=== PATIENT | male | born 1980 | race Caucasian/White ===

== ENCOUNTER 2020-02-16 11:20 | Outpatient (REF) | payer OTHER, SELFPAY ==
[2020-02-16 11:45] LABS: COVID-19 Test Negative (Negative)
== END 2020-02-16 11:21 | disposition home or self-care (01) ==
LOC: HO.LAB 11:20
PROVIDERS: Visit Provider Internal Medicine
DX: Z20.828 Contact with and (suspected) exposure to other viral communicable diseases (principal)
CPT/HCPCS: 87635

== ENCOUNTER 2020-05-18 11:27 | Emergency (ER) | payer OTHER, SELFPAY ==
[2020-05-18 11:32] VITALS: BP 133/94; BP 140/80; PULSE 110; PULSE 91; RESP 14; TEMP 37.2; O2SAT 98; O2SAT 99; BMI 29.9
--- NOTE | 2020-05-18 11:53 | XR_ITS ---
EXAMINATION: XR CHEST CLINICAL INFORMATION: Cough and fever COMPARISON: November 04, 2016 TECHNIQUE: 2 views of the chest were obtained. FINDINGS: No significant abnormality is noted involving the heart, lungs, mediastinum, bony thorax or soft tissues. XR/XR chest 2V IMPRESSION: No acute disease.
--- NOTE | 2020-05-18 11:56 | ECG_ITS ---
Test Reason : ETOH Blood Pressure : / mmHG Vent. Rate : 081 BPM Atrial Rate : 081 BPM P-R Int : 136 ms QRS Dur : 092 ms QT Int : 396 ms P-R-T Axes : 080 056 059 degrees QTc Int : 460 ms Normal sinus rhythm with sinus arrhythmia Normal ECG No previous ECGs available Referred By: Devi Del Valle Electronically Signed By:ADOLFO SERRATO MD
--- NOTE | 2020-05-18 11:58 | ED.ALCOHOL ---
HPI - Alcohol General Chief Complaint: ETOH/Substance Use Stated Complaint: withdrawal Time Seen by Provider: 05/18/20 11:41 Source: EMS Mode of arrival: EMS History of Present Illness HPI narrative: 40-year-old male with a past medical history of alcohol abuse here with feeling tremulous and nauseous. He tells me that he normally drinks over the weekend 2-3 days and binges. He tells me he will drink approximately 1 bottle of hard liquor per day on the weekend. Does not drink during the week except occasional sips. No additional substance use. He does normally feel shaky and tremulous if he does not drink. He tells me after this past weekend he did not eat much food or drink much water and feels very dehydrated. He also has felt some chills but no fever. No vomiting or diarrhea or abdominal pain or cough or shortness of breath or chest pain. The patient tells me he is not interested in going to detox today. No SI/HI. MD complaint: alcohol dependence Last drink: Hours (ago) Chronic alcohol use: Yes Previous visits for alcohol intoxication: No Recent trauma: No Associated symptoms: nausea Treatments prior to arrival: none Related Data Allergies Allergy/AdvReac Type Severity Reaction Status Date / Time No Known Allergies Allergy Unverified 01/20/20 17:21 Seasonal Allergy Unknown Uncoded 09/18/17 00:00 Review of Systems Review of Systems: Yes all other systems are reviewed and are negative Constitutional: Constitutional: Reports no additional constitutional complaints, Denies body ache(s), Reports chills, Denies fever(s), Denies headache(s) and Denies weakness Eyes: Eyes: Reports no additional eye complaints and Denies change in vision ENT: Reports system reviewed and no additional complaints, except as documented, Denies dizziness, Denies headache(s), Denies nasal congestion, Denies nasal discharge and Denies neck pain Cardiovascular: Cardiovascular: Reports no additional cardiovascular complaints, Denies chest pain, Denies leg edema and Denies dyspnea Respiratory: Respiratory: Reports no additional respiratory complaints, Denies cough and Denies dyspnea Gastrointestinal: Gastrointestinal: Reports no additional gastrointestinal complaints, Denies abdominal pain, Denies diarrhea, Reports nausea and Denies vomiting Genitourinary: Genitourinary: Denies urinary incontinence Musculoskeletal: Musculoskeletal: Reports no additional musculoskeletal complaints, Denies back pain, Denies arthralgias, Denies joint swelling, Denies neck pain, Denies numbness and Denies tingling Integumentary/Breasts: Skin/Breast: Reports system reviewed and no additional complaints, except as docu and Denies rash Neurologic: Reports system reviewed and no additional complaints, except as documented, Denies Abnormal speech present, Denies dizziness, Denies headache(s), Denies numbness, Denies tingling, Reports tremor(s) and Denies weakness [facility] Past Medical History Attestation statement: The following information was validated with the patient. Source: old records reviewed and nursing notes reviewed Medical History Seasonal asthma Social History Social History Alcohol intake: current Alcohol intake frequency: 3 or more drinks per day Alcohol type: beer and hard liquor Smoking Status: Current every day smoker Substance Use Type: Marijuana Physical Exam Vital Signs: Vital Signs: Last Vital Signs Temp 99.0 F 05/18/20 15:41 Pulse 96 05/18/20 15:41 Resp 13 05/18/20 15:41 BP 141/81 H 05/18/20 15:41 Pulse Ox 96 05/18/20 15:41 Body Mass Index 29.9 Const: General: cooperative, healthy appearing, comfortable and no acute distress Orientation/consciousness: patient oriented x3 Limitations: no limitations HENMT: Other: Tacky mucous membranes Head: Yes normal to inspection Ears: hearing grossly normal bilaterally General nose exam: Normal external nose present Face and sinus: Yes normal facial exam Mouth: Normal oral and palatal mucosa present Throat: Yes posterior oropharynx normal Eyes: General: appearance normal, both eyes and all related structures Pupils: Equal, round and reactive pupils present Neck: Neck: Yes normal visual inspection Chest: Chest palpation & inspection: normal inspection of the chest Resp: Effort & Inspection: normal respiratory effort Auscultation: clear to auscultation bilaterally Cardio: Rate: regular rate Rhythm: regular rhythm Peripheral pulses: Peripheral pulses 2+ throughout GI: Inspection: Yes normal to inspection Palpation (GI): Soft to palpation and nontender Auscultation: normal bowel sounds Back/Spine/Pelvis: Thoracic/Lumbar Spine: thoracic and lumbar spine normal to inspection Skin: Other: warm to touch General skin exam: no rashes or lesions noted Neuro: Other: tremulous General: patient oriented x3, no focal motor deficits and normal sensation to monofilament Cranial nerves: Yes Equal, round and reactive pupils present Cognition (Neuro): normal cognition Speech: No Abnormal speech present Gait exam (Neuro): Normal gait present Motor exam (neuro): 5/5 motor strength present throughout Extrem: General: Yes normal to inspection Course Course Course Narrative: 40-year-old male here with feeling tremulous, weak, nauseous. Tells me has a history of binge drinking and normally has withdrawal symptoms from this. Decreased p.o. intake over this weekend. Not interested in detox. No SI or HI. Denies any injury or trauma. On arrival the patient is noted to be warm to touch and has some chills. He has a low-grade temperature of 99.9 degrees on arrival. Will need labs including blood cultures and lactic acid, EKG, chest x-ray, COVID testing. Will give normal saline bolus, antiemetics and Ativan. coach mechanic at the bedside. 1330-lactic acid elevated. No leukocytosis or shift. No tachycardia. Patient has low-grade fever. This is likely secondary to severe dehydration from alcohol abuse. Not from sepsis. Patient does appear dehydrated so fluids were ordered. 1600-repeat labs improved. Patient is feeling less tremulous. Denies nausea. Tolerating p.o.. He has an appointment at [facility] 11:00 tomorrow. Reviewed worrisome signs and symptoms and when to return to the emergency department. Comfortable discharge home. [facility] - Alcohol Medical Records Attestation: I reviewed the patient's medical records. Lab Data Attestation: I reviewed the patient's lab results. Result diagrams: 05/18/20 12:33 05/18/20 12:33 Labs: Lab Results 05/18/20 05/18/20 05/18/20 Range/Units 12:33 12:33 12:33 WBC 7.5 (4.8-10.8) X10*3/uL RBC 5.15 (4.60-5.80) X10*6/uL Hgb 16.5 (14.0-18.0) g/dl Hct 46.2 (42-52) % MCV 89.7 (80-98) fL MCH 32.0 (27.0-33.0) pg MCHC 35.7 (31.0-36.0) g/dl RDW 13.0 (11.0-16.0) % Plt Count 234 (160-400) X10*3/uL MPV 10.0 (9.4-12.4) fL Immature Gran % (Auto) 0.1 (0.0-0.4) % Neut % (Auto) 72.8 (45-73) % Lymph % (Auto) 21.2 (20-40) % [place] % (Auto) 5.5 (2-11) % Eos % (Auto) 0.0 (0-4) % Baso % (Auto) 0.4 (0-2) % Lymph # (Auto) 1.6 (1.2-4.9) X10*3/uL [place] # (Auto) 0.4 (0.1-1.2) X10*3/uL Eos # (Auto) 0.0 (0.0-0.4) X10*3/uL Baso # (Auto) 0.0 (0.0-0.2) X10*3/uL Abs Immat Gran (auto) 0.01 (0.00-0.03) X10*3/uL Absolute Neuts (auto) 5.5 (2.0-8.3) X10*3/uL Absolute Nucleated RBC 0.000 (0.0-0.012) X10*3/uL Nucleated RBC % (auto) 0.0 (0.0-0.2) /100WBC Sodium 141 (135-145) mmol/L Potassium 3.9 (3.3-5.1) mmol/l Chloride 103 (96-108) mmol/L Carbon Dioxide 20 L (22-29) mmol/L Anion Gap 22 H (12-20) BUN 9 (9-16) mg/dL Creatinine 0.86 (0.5-1.4) mg/dL Estim Creat Clear Calc 113.4 Estimated GFR > 60 Random Glucose 102 (60-115) mg/dL Lactic Acid 4.9 H* (0.5-2.0) mmol/L Lactic Acid Fup @ 2Hr (0.5-2.0) mmol/L Calcium 9.3 (8.4-10.2) mg/dL Magnesium 1.9 (1.6-2.6) mg/dL Total Bilirubin 0.5 (0.0-1.0) mg/dL Direct Bilirubin 0.2 (0.0-0.5) mg/dL AST 29 (5-37) U/L ALT 30 (0-40) U/L Alkaline Phosphatase 88 (39-117) U/L Total Protein 7.7 (6.5-8.0) g/dL Albumin 4.6 (3.5-5.0) g/dL Urine Color Urine Appearance Urine pH (5.0-8.0) Ur Specific [place] (1.005-1.025) Urine Protein (NEG-TRACE) MG/DL Urine Glucose (UA) (NEG) MG/DL Urine Ketones (NEG) MG/DL Urine Blood (NEG) Urine Nitrite (NEG) Ur Leukocyte Esterase (NEG) Urine Opiates Screen (Not Detect) Ur Barbiturates Screen (Not Detect) Ur Phencyclidine Scrn (Not Detect) Ur Amphetamines Screen (Not Detect) U Benzodiazepines Scrn (Not Detect) Urine Cocaine Screen (Not Detect) U Marijuana (THC) Screen (Not Detect) Ethyl Alcohol mg/dL COVID-19 ([facility]INDSEY) (Negative) COVID-19 Clin Com 05/18/20 05/18/20 05/18/20 Range/Units 12:34 12:52 15:23 WBC (4.8-10.8) X10*3/uL RBC (4.60-5.80) X10*6/uL Hgb (14.0-18.0) g/dl Hct (42-52) % MCV (80-98) fL MCH (27.0-33.0) pg MCHC (31.0-36.0) g/dl RDW (11.0-16.0) % Plt Count (160-400) X10*3/uL MPV (9.4-12.4) fL Immature Gran % (Auto) (0.0-0.4) % Neut % (Auto) (45-73) % Lymph % (Auto) (20-40) % [place] % (Auto) (2-11) % Eos % (Auto) (0-4) % Baso % (Auto) (0-2) % Lymph # (Auto) (1.2-4.9) X10*3/uL [place] # (Auto) (0.1-1.2) X10*3/uL Eos # (Auto) (0.0-0.4) X10*3/uL Baso # (Auto) (0.0-0.2) X10*3/uL Abs Immat Gran (auto) (0.00-0.03) X10*3/uL Absolute Neuts (auto) (2.0-8.3) X10*3/uL Absolute Nucleated RBC (0.0-0.012) X10*3/uL Nucleated RBC % (auto) (0.0-0.2) /100WBC Sodium (135-145) mmol/L Potassium (3.3-5.1) mmol/l Chloride (96-108) mmol/L Carbon Dioxide (22-29) mmol/L Anion Gap (12-20) BUN (9-16) mg/dL Creatinine (0.5-1.4) mg/dL Estim Creat Clear Calc Estimated GFR Random Glucose (60-115) mg/dL Lactic Acid (0.5-2.0) mmol/L Lactic Acid Fup @ 2Hr 1.1 (0.5-2.0) mmol/L Calcium (8.4-10.2) mg/dL Magnesium (1.6-2.6) mg/dL Total Bilirubin (0.0-1.0) mg/dL Direct Bilirubin (0.0-0.5) mg/dL AST (5-37) U/L ALT (0-40) U/L Alkaline Phosphatase (39-117) U/L Total Protein (6.5-8.0) g/dL Albumin (3.5-5.0) g/dL Urine Color Urine Appearance Urine pH (5.0-8.0) Ur Specific [place] (1.005-1.025) Urine Protein (NEG-TRACE) MG/DL Urine Glucose (UA) (NEG) MG/DL Urine Ketones (NEG) MG/DL Urine Blood (NEG) Urine Nitrite (NEG) Ur Leukocyte Esterase (NEG) Urine Opiates Screen (Not Detect) Ur Barbiturates Screen (Not Detect) Ur Phencyclidine Scrn (Not Detect) Ur Amphetamines Screen (Not Detect) U Benzodiazepines Scrn (Not Detect) Urine Cocaine Screen (Not Detect) U Marijuana (THC) Screen (Not Detect) Ethyl Alcohol 42 mg/dL COVID-19 ([place]INDSEY) Negative (Negative) COVID-19 Clin Com See Note 05/18/20 05/18/20 Range/Units 15:42 15:42 WBC (4.8-10.8) X10*3/uL RBC (4.60-5.80) X10*6/uL Hgb (14.0-18.0) g/dl Hct (42-52) % MCV (80-98) fL MCH (27.0-33.0) pg MCHC (31.0-36.0) g/dl RDW (11.0-16.0) % Plt Count (160-400) X10*3/uL MPV (9.4-12.4) fL Immature Gran % (Auto) (0.0-0.4) % Neut % (Auto) (45-73) % Lymph % (Auto) (20-40) % [place] % (Auto) (2-11) % Eos % (Auto) (0-4) % Baso % (Auto) (0-2) % Lymph # (Auto) (1.2-4.9) X10*3/uL [place] # (Auto) (0.1-1.2) X10*3/uL Eos # (Auto) (0.0-0.4) X10*3/uL Baso # (Auto) (0.0-0.2) X10*3/uL Abs Immat Gran (auto) (0.00-0.03) X10*3/uL Absolute Neuts (auto) (2.0-8.3) X10*3/uL Absolute Nucleated RBC (0.0-0.012) X10*3/uL Nucleated RBC % (auto) (0.0-0.2) /100WBC Sodium (135-145) mmol/L Potassium (3.3-5.1) mmol/l Chloride (96-108) mmol/L Carbon Dioxide (22-29) mmol/L Anion Gap (12-20) BUN (9-16) mg/dL Creatinine (0.5-1.4) mg/dL Estim Creat Clear Calc Estimated GFR Random Glucose (60-115) mg/dL Lactic Acid (0.5-2.0) mmol/L Lactic Acid Fup @ 2Hr (0.5-2.0) mmol/L Calcium (8.4-10.2) mg/dL Magnesium (1.6-2.6) mg/dL Total Bilirubin (0.0-1.0) mg/dL Direct Bilirubin (0.0-0.5) mg/dL AST (5-37) U/L ALT (0-40) U/L Alkaline Phosphatase (39-117) U/L Total Protein (6.5-8.0) g/dL Albumin (3.5-5.0) g/dL Urine Color YELLOW Urine Appearance CLEAR Urine pH 7.5 (5.0-8.0) Ur Specific [place] 1.020 (1.005-1.025) Urine Protein NEG (NEG-TRACE) MG/DL Urine Glucose (UA) NEG (NEG) MG/DL Urine Ketones 40 (NEG) MG/DL Urine Blood NEG (NEG) Urine Nitrite NEG (NEG) Ur Leukocyte Esterase NEG (NEG) Urine Opiates Screen Not Detected (Not Detect) Ur Barbiturates Screen Not Detected (Not Detect) Ur Phencyclidine Scrn Not Detected (Not Detect) Ur Amphetamines Screen Not Detected (Not Detect) U Benzodiazepines Scrn Not Detected (Not Detect) Urine Cocaine Screen Not Detected (Not Detect) U Marijuana (THC) Screen POSITIVE H (Not Detect) Ethyl Alcohol mg/dL COVID-19 ([facility]INDSEY) (Negative) COVID-19 Clin Com Imaging Data Chest x-ray: Attestation: I personally reviewed and interpreted this imaging study as follows: Radiologist's impression: [address] [address] XRay Report Signed Patient: Denis Baker#: [id number] : 1980Acct:[id number] Age/Sex: 40 / MADM Date: 05/18/20 Loc: HO.ED Attending Dr: Ordering Physician: MCKAY HENNING NP Date of Service: 05/18/20 Procedure(s): XR chest 2V Accession Number(s): [id number] cc: MCKAY HENNING NP~ EXAMINATION: XR CHEST CLINICAL INFORMATION: Cough and fever COMPARISON: November 04, 2016 TECHNIQUE: 2 views of the chest were obtained. FINDINGS: No significant abnormality is noted involving the heart, lungs, mediastinum, bony thorax or soft tissues. XR/XR chest 2V IMPRESSION: No acute disease. ECG Data Attestation: I personally reviewed and interpreted this ECG as follows: ECG interpretation date: 05/18/20 ECG interpretation time: 13:05 Interpretation: NSR rate 81, normal SD, normal qrs, normal qt Discharge Plan Discharge Clinical Impression: Alcohol withdrawal syndrome Qualifiers: Complication of substance-induced condition: uncomplicated Qualified Code(s): F10.230 - Alcohol dependence with withdrawal, uncomplicated Patient Disposition: Home, Self-Care Instructions: Alcohol Withdrawal (ED) Additional Instructions: You have an appointment at the care center tomorrow at 11am. Return here for any worsening symptoms as discussed Referrals: Physician,Unknown [Primary Care Provider] - 2 days Interventions: ED Discharge Assessment Last Done: 05/18/20 16:59 Discharge Date/Time: 05/18/20 17:01
[2020-05-18] MEDS: ondansetron HCL 4 MG/2 ML VIAL IVPUSH (12:25)
[2020-05-18] MEDS: LORazepam 2 MG/ML VIAL 1 MG IVPUSH (12:25)
[2020-05-18] MEDS: 0.9 % Sodium Chloride 1,000 ML 999 ML IV (12:25)
[2020-05-18 12:40] LABS: MANUAL DIFF FLAG NO
[2020-05-18 12:43] LABS: Basophils Percent Auto 0.4 % (0-2); Hematocrit 46.2 % (42-52); Hemoglobin 16.5 g/dl (14.0-18.0); Imm Gran Abs Auto 0.01 X10*3/uL (0.00-0.03); Imm Gran Pct Auto 0.1 % (0.0-0.4); Lymphocytes Absolute Auto 1.6 X10*3/uL (1.2-4.9); Lymphocytes Percent Auto 21.2 % (20-40); Mean Corpuscular HGB Conc 35.7 g/dl (31.0-36.0); Mean Corpuscular Volume 89.7 fL (80-98); Monocytes Absolute Auto 0.4 X10*3/uL (0.1-1.2); Monocytes Percent Auto 5.5 % (2-11); Neutrophils Absolute Auto 5.5 X10*3/uL (2.0-8.3); Neutrophils Percent Auto 72.8 % (45-73); Platelet Count 234 X10*3/uL (160-400); Red Blood Count 5.15 X10*6/uL (4.60-5.80); White Blood Count 7.5 X10*3/uL (4.8-10.8)
[2020-05-18 13:02] VITALS: BP 132/76; PULSE 79; RESP 16; O2SAT 98
[2020-05-18 13:25] LABS: Ethanol 42 mg/dL
[2020-05-18 13:28] LABS: COVID-19 Test Negative (Negative); IDNOW Serial# 9DD0AD1C
[2020-05-18 13:29] LABS: Alanine Aminotransferase 30 U/L (0-40); Albumin Level 4.6 g/dL (3.5-5.0); Alkaline Phosphatase 88 U/L (39-117); Anion Gap 22 (12-20); Aspartate Amino Transferase 29 U/L (5-37); Bilirubin Direct 0.2 mg/dL (0.0-0.5); Bilirubin Total 0.5 mg/dL (0.0-1.0); Blood Urea Nitrogen 9 mg/dL (9-16); Calcium 9.3 mg/dL (8.4-10.2); Carbon Dioxide 20 mmol/L (22-29); Chloride 103 mmol/L (96-108); Creatinine Clr Calc Pharmacy 113.4; Estimated Glomerular Filt Rate > 60; Glucose Random 102 mg/dL (60-115); Lactic Acid 4.9 mmol/L (0.5-2.0); Magnesium 1.9 mg/dL (1.6-2.6); Potassium 3.9 mmol/l (3.3-5.1); Sodium 141 mmol/L (135-145); Total Protein 7.7 g/dL (6.5-8.0)
--- NOTE | 2020-05-18 13:34 | MHC.RECOVSUP ---
Recovery Support note: Patient is a 40 year old [place] speaking male who presented to [facility] [place] via EMS due to symptoms of alcohol withdrawal. Patient met with a passenger coach driver while in the emergency room and reported he was not interested in going to [facility] due to family obligations. Patient did express interest in medications for alcohol use disorder. This typewriter ribbon winder met with patient along with the recovery support nurse to discuss his recovery and MAT options. Patient reports he typically drinks from Friday to Friday and that he binge drinks alcohol and liquor. Patient reports it [birth year] his birthday and that he continued to drink through the week until yesterday. Patient reports his longest of period of sobriety was two periods of 90 days while he was incarcerated. Patient reports a desire to maintain sobriety, stating he is tired of drinking and that he is just drinking to drink and that he doesn't even feel it anymore. Discussed IOP with patient and outpatient therapy. Patient reports he cannot handle stress and that he drinks to cope with stress. Discussed coping skills with patient and encouraged he reaches out to supports in place when stressed. Patient has appointment at the [facility] for 05/19/20 at 11:00. Patient will be provided with appointment reminder as well as information on [facility].
[2020-05-18 14:39] LABS: Reflex Lactate? Lactic Acid Added
--- NOTE | 2020-05-18 15:26 | PC.NURSE ---
repeat lactic drawn. pt in nad. resting comfortably in stretcher.
[2020-05-18 15:41] VITALS: BP 141/81; PULSE 96; RESP 13; TEMP 37.2; O2SAT 96
[2020-05-18 15:51] LABS: ~Lactic Acid-LAB USE ONLY 1.1 mmol/L (0.5-2.0)
[2020-05-18 16:28] LABS: Glucose Urine UA NEG (NEG); Leukocyte Esterase Urine NEG (NEG); Nitrite Urine NEG (NEG); PH 7.5 (5.0-8.0); Urine Blood NEG (NEG); Urine Ketones 40 MG/DL (NEG); Urine Protein NEG (NEG-TRACE)
[2020-05-18 16:29] LABS: Appearance Urine CLEAR; Color Urine YELLOW
[2020-05-18 16:47] LABS: Amphetamine Screen Urine Not Detected (Not Detect); Barbiturates, Urine Not Detected (Not Detect); Benzodiazepines Screen Urine Not Detected (Not Detect); Cannabinoid Screen Urine POSITIVE (Not Detect); Cocaine Screen Urine Not Detected (Not Detect); Opiate Screen Urine Not Detected (Not Detect); Phencyclidine Screen Urine Not Detected (Not Detect)
== END 2020-05-18 17:01 | disposition home or self-care (01) ==
PROVIDERS: Nurse Practitioner Family; Emergency Provider Emergency Medicine Emergency Medical Services
DX: F10.239 Alcohol dependence with withdrawal, unspecified (principal); F12.90 Cannabis use, unspecified, uncomplicated; F17.200 Nicotine dependence, unspecified, uncomplicated; R11.0 Nausea; Z71.6 Tobacco abuse counseling; Z20.822 Contact with and (suspected) exposure to COVID-19
CPT/HCPCS: 36415; 71046; 80048; 80076; 80307; 80320; 81003; 83605; 83735; 85025; 87040; 87635; 93005; 96361; 96374; 96375; 99285; J2060; J2405

== ENCOUNTER → 2020-05-19 13:26 | Outpatient (BNVA) | payer OTHER, SELFPAY | PROVIDERS: Visit Provider Internal Medicine | DX: F11.99 Opioid use, unspecified with unspecified opioid-induced disorder (principal) | CPT/HCPCS: 99202; 99211 ==

== ENCOUNTER 2020-09-04 14:07 | Emergency (ER) | payer OTHER, SELFPAY ==
[2020-09-04 14:10] VITALS: BP 136/101; PULSE 104; RESP 18; TEMP 36.6; O2SAT 96; BMI 29.9
[2020-09-04 17:01] LABS: MANUAL DIFF FLAG NO
[2020-09-04 17:03] LABS: Basophils Percent Auto 0.2 % (0-2); Eosinophils Absolute Auto 0.1 X10*3/uL (0.0-0.4); Eosinophils Percent Auto 0.6 % (0-4); Hemoglobin 16.2 g/dl (14.0-18.0); Imm Gran Abs Auto 0.02 X10*3/uL (0.00-0.03); Imm Gran Pct Auto 0.2 % (0.0-0.4); Lymphocytes Absolute Auto 1.9 X10*3/uL (1.2-4.9); Lymphocytes Percent Auto 21.5 % (20-40); Mean Corpuscular HGB Conc 35.2 g/dl (31.0-36.0); Mean Corpuscular Volume 90.7 fL (80-98); Mean Platelet Volume 10.2 fL (9.4-12.4); Monocytes Absolute Auto 0.6 X10*3/uL (0.1-1.2); Monocytes Percent Auto 6.4 % (2-11); NRBC Pct Auto 0.3 /100WBC (0.0-0.2); Neutrophils Absolute Auto 6.2 X10*3/uL (2.0-8.3); Neutrophils Percent Auto 71.1 % (45-73); Platelet Count 185 X10*3/uL (160-400); Red Blood Count 5.07 X10*6/uL (4.60-5.80); Red Cell Distribution Width 13.2 % (11.0-16.0); White Blood Count 8.7 X10*3/uL (4.8-10.8)
[2020-09-04 17:20] LABS: Prothrombin Time 11.5 SEC (10.8-13.0)
[2020-09-04 17:21] LABS: Alanine Aminotransferase 28 U/L (0-40); Albumin Level 4.4 g/dL (3.5-5.0); Alkaline Phosphatase 92 U/L (39-117); Anion Gap 15 (12-20); Aspartate Amino Transferase 27 U/L (5-37); Blood Urea Nitrogen 12 mg/dL (9-16); Calcium 9.2 mg/dL (8.4-10.2); Carbon Dioxide 23 mmol/L (22-29); Chloride 104 mmol/L (96-108); Creatinine Clr Calc Pharmacy 103.8; Estimated Glomerular Filt Rate > 60; Glucose Random 94 mg/dL (60-115); Potassium 3.8 mmol/L (3.3-5.1); Sodium 138 mmol/L (135-145); Total Protein 7.1 g/dL (6.5-8.0)
[2020-09-04 17:23] LABS: Partial Thromboplastin Time 32.7 SEC (24.1-38.0)
[2020-09-04 17:29] VITALS: BP 141/102; PULSE 91; RESP 14; O2SAT 98
[2020-09-04] MEDS: Famotidine 20 MG TABLET PO (17:46)
[2020-09-04] MEDS: predniSONE 20 MG TABLET 60 MG PO (17:46)
--- NOTE | 2020-09-04 17:56 | ED.GENADULT ---
HPI - General Adult General Chief complaint: Skin/Abscess/Foreign Body Stated complaint: RASH [facility] REACTION TO COVID VACCINE Time Seen by Provider: 09/04/20 16:42 Source: patient Mode of arrival: ambulatory Limitations: no limitations History of Present Illness HPI narrative: Patient presents to the ED for itchy rash which began today. Patient states rash on back, chest, and upper extremities. Patient denies any swelling of lips, shortness of breath, sensation of throat closing. Patient states no fever chills. Patient had 1st modernal vaccine injection last week. Patient denies any bleeding from nose, vomiting blood, belly pain, rectal bleeding, headache, chest pain, shortness of breath, leg swelling, or calf pain. Related Data Previous Rx's Medication Instructions Recorded naltrexone 50 mg tablet 50 mg PO DAILY #30 tab 05/19/20 varenicline 0.5 mg (11)-1 mg (42) See Rx Instructions PO PER PKG DIR 05/19/20 tablets in a dose pack #53 ea diphenhydramine HCl [Benadryl] 25 mg PO TID PRN #30 cap 09/04/20 famotidine [Pepcid] 20 mg PO BID #20 tab 09/04/20 prednisone 40 mg PO DAILY #10 tab 09/04/20 Allergies Allergy/AdvReac Type Severity Reaction Status Date / Time No Known Allergies Allergy Unverified 01/20/20 17:21 Seasonal Allergy Unknown Uncoded 09/18/17 00:00 Review of Systems Review of Systems: Yes all other systems are reviewed and are negative Constitutional: Constitutional: Reports as per HPI and Reports no additional constitutional complaints Eyes: Eyes: Reports as per HPI and Reports no additional eye complaints ENT: Reports system reviewed and no additional complaints, except as documented and Reports as per HPI Cardiovascular: Cardiovascular: Reports as per HPI and Reports no additional cardiovascular complaints Respiratory: Respiratory: Reports as per HPI and Reports no additional respiratory complaints Gastrointestinal: Gastrointestinal: Reports as per HPI and Reports no additional gastrointestinal complaints Genitourinary: Genitourinary: Reports no additional male genitourinary complaints and Reports as per HPI Musculoskeletal: Musculoskeletal: Reports no additional musculoskeletal complaints and Reports as per HPI Comments: Itchy rash on chest/back/upper extremities Neurologic: Reports system reviewed and no additional complaints, except as documented and Reports as per HPI Psychiatric: Psychiatric: Reports no additional psychiatric complaints and Reports as per HPI [facility] Past Medical History Medical History (Updated 09/04/20 @ 18:03 by LYDIA Gaytan) Opioid use disorder Seasonal asthma Social History Social History Alcohol intake: current Alcohol intake frequency: 3 or more drinks per day Alcohol type: beer and hard liquor Smoking Status: Current every day smoker Substance Use Type: Marijuana Advance Directives: No Advance Directives Information Provided: Yes Physical Exam Vital Signs: Vital Signs: Last Vital Signs Temp 97.8 F 09/04/20 14:10 Pulse 91 09/04/20 17:29 Resp 14 09/04/20 17:29 BP 141/102 H 09/04/20 17:29 Pulse Ox 98 09/04/20 17:29 Body Mass Index 29.9 Const: General: cooperative, healthy appearing, comfortable, no acute distress, well developed, alert, awake and Physically active Orientation/consciousness: patient oriented x3 HENMT: Other: Negative for lip swelling or tongue swelling Head: Yes normal to inspection, Yes No palpable skull fracture present, Yes normocephalic, Yes atraumatic and Yes abrasion Throat: Yes posterior oropharynx normal, Yes tonsils normal and Yes uvula midline Eyes: General: appearance normal, both eyes and all related structures Neck: Neck: Yes normal visual inspection, Yes full ROM, Yes no lymphadenopathy, Yes no meningeal signs, Yes trachea midline, Yes supple and No tender Chest: Other: Rash Resp: Effort & Inspection: normal respiratory effort and able to speak in complete sentences Cardio: Jugular venous distension: no JVD Heart sounds: S1 normal heart sound present and S2 normal heart sound present GI: Inspection: Yes normal to inspection and No abdominal wall ecchymosis Palpation (GI): Soft to palpation, not firm, nontender, no guarding and not rigid : General: No CVA tenderness and Yes no CVA tenderness Back/Spine/Pelvis: Back: no CVA tenderness, No CVA tenderness and No back tenderness Skin: Other: Rash on chest, back, upper extremities. Uticaria Neuro: General: patient oriented x3, no meningeal signs and CN's II-XI intact bilaterally Cranial nerves: Yes CN's II-XII intact bilaterally Extrem: General: Yes normal to inspection and Yes full ROM Psych: Appearance: grossly normal, well kempt and not disheveled Course Course Course Narrative: Rash look like uticaria like rash make sure not missing petechia ( thrombocytopenia) although very unlikely due to patient stating rash is itching. Will send labs to evaluate for coags. Reevaluation(s) Reevaluation #1: patient's uticaria now more pronounced. Patient 's labs came back normal. Patient discharged with benadryl, prednisone, and pepcid. Patient's benadryl in the ED was cancelled due to patient states he was driving himself home. Medical Decision Making Lab Data Result diagrams: 09/04/20 16:55 09/04/20 16:55 Labs: Lab Results 09/04/20 09/04/20 09/04/20 Range/Units 16:55 16:55 16:55 WBC 8.7 (4.8-10.8) X10*3/uL RBC 5.07 (4.60-5.80) X10*6/uL Hgb 16.2 (14.0-18.0) g/dl Hct 46.0 (42-52) % MCV 90.7 (80-98) fL MCH 32.0 (27.0-33.0) pg MCHC 35.2 (31.0-36.0) g/dl RDW 13.2 (11.0-16.0) % Plt Count 185 (160-400) X10*3/uL MPV 10.2 (9.4-12.4) fL Immature Gran % (Auto) 0.2 (0.0-0.4) % Neut % (Auto) 71.1 (45-73) % Lymph % (Auto) 21.5 (20-40) % [place] % (Auto) 6.4 (2-11) % Eos % (Auto) 0.6 (0-4) % Baso % (Auto) 0.2 (0-2) % Lymph # (Auto) 1.9 (1.2-4.9) X10*3/uL [place] # (Auto) 0.6 (0.1-1.2) X10*3/uL Eos # (Auto) 0.1 (0.0-0.4) X10*3/uL Baso # (Auto) 0.0 (0.0-0.2) X10*3/uL Abs Immat Gran (auto) 0.02 (0.00-0.03) X10*3/uL Absolute Neuts (auto) 6.2 (2.0-8.3) X10*3/uL Absolute Nucleated RBC 0.030 H (0.0-0.012) X10*3/uL Nucleated RBC % (auto) 0.3 H (0.0-0.2) /100WBC PT 11.5 (10.8-13.0) SEC INR 1.0 (0.9-1.1) APTT 32.7 (24.1-38.0) SEC Sodium 138 (135-145) mmol/L Potassium 3.8 (3.3-5.1) mmol/L Chloride 104 (96-108) mmol/L Carbon Dioxide 23 (22-29) mmol/L Anion Gap 15 (12-20) BUN 12 (9-16) mg/dL Creatinine 0.94 (0.5-1.4) mg/dL Estim Creat Clear Calc 103.8 Estimated GFR > 60 Random Glucose 94 (60-115) mg/dL Calcium 9.2 (8.4-10.2) mg/dL Total Bilirubin 1.0 (0.0-1.0) mg/dL AST 27 (5-37) U/L ALT 28 (0-40) U/L Alkaline Phosphatase 92 (39-117) U/L Total Protein 7.1 (6.5-8.0) g/dL Albumin 4.4 (3.5-5.0) g/dL Discharge Plan Discharge Clinical Impression: Allergic reaction Patient Disposition: Home, Self-Care Instructions: General Allergic Reaction (ED) Additional Instructions: Return to the ED immediately for swelling of lips, swelling of tongue, shortness of breath, fever, chills, worsening rash, or any other concerning symptoms. Please follow-up with your PCP. Please informed your PCP of allergic reaction and you got the COVID vaccine last week. Also you were slightly hypertensive in the ER. Please make your PCP aware of this and follow-up with him. Prescriptions: New prednisone 20 mg tablet 40 mg PO DAILY Qty: 10 RF: 0 famotidine [Pepcid] 20 mg tablet 20 mg PO BID Qty: 20 RF: 0 diphenhydramine HCl [Benadryl] 25 mg capsule 25 mg PO TID PRN (Reason: allergic reaction) Qty: 30 RF: 0 No Action naltrexone 50 mg tablet 50 mg PO DAILY Qty: 30 RF: 0 Chantix Starting Month Box 0.5 mg (11)- 1 mg (42) tablets,dose pack See Rx Instructions PO PER PKG DIR Qty: 53 RF: 0 Interventions: ED Discharge Assessment Last Done: 09/04/20 18:17 Discharge Date/Time: 09/04/20 18:21 Print Language: Danish
== END 2020-09-04 18:21 | disposition home or self-care (01) ==
PROVIDERS: Physician Assistant; Emergency Provider Internal Medicine
DX: T78.40XA Allergy, unspecified, initial encounter (principal); R21 Rash and other nonspecific skin eruption; X58.XXXA Exposure to other specified factors, initial encounter; F17.200 Nicotine dependence, unspecified, uncomplicated; F12.90 Cannabis use, unspecified, uncomplicated
CPT/HCPCS: 36415; 80053; 85025; 85610; 85730; 99283; 99284

== ENCOUNTER 2021-01-11 16:46 | Outpatient (REF) | payer MEDICAID, SELFPAY ==
--- NOTE | ~2021-01-11 | XR_ITS ---
EXAMINATION: XR CHEST CLINICAL INFORMATION: Contact with and suspected exposure to COVID 19 COMPARISON: 05/18/2020 TECHNIQUE: 2 views of the chest were obtained. FINDINGS: Lungs are clear. No focal consolidation or mass. Normal pulmonary vascularity. No pleural effusion or pneumothorax. Normal heart size. No acute osseous abnormality. XR/XR chest 2V IMPRESSION: No acute pulmonary disease.
== END 2021-01-11 16:47 | disposition home or self-care (01) ==
LOC: HO.XRAY 16:46
PROVIDERS: PCP Nurse Practitioner Family; Visit Provider Nurse Practitioner Family
DX: Z20.822 Contact with and (suspected) exposure to COVID-19 (principal)
CPT/HCPCS: 71046

== ENCOUNTER 2021-02-08 09:25 | Outpatient (REF) | payer MEDICAID, SELFPAY ==
[2021-02-08 10:36] LABS: MANUAL DIFF FLAG NO
[2021-02-08 12:08] LABS: Basophils Percent Auto 0.6 % (0-2); Eosinophils Absolute Auto 0.1 X10*3/uL (0.0-0.4); Eosinophils Percent Auto 1.4 % (0-4); Hematocrit 44.5 % (42-52); Hemoglobin 14.6 g/dl (14.0-18.0); Imm Gran Abs Auto 0.01 X10*3/uL (0.00-0.03); Imm Gran Pct Auto 0.2 % (0.0-0.4); Lymphocytes Percent Auto 40.4 % (20-40); Mean Corpuscular HGB Conc 32.8 g/dl (31.0-36.0); Mean Corpuscular Hemoglobin 30.6 pg (27.0-33.0); Mean Corpuscular Volume 93.3 fL (80-98); Mean Platelet Volume 11.2 fL (9.4-12.4); Monocytes Absolute Auto 0.5 X10*3/uL (0.1-1.2); Monocytes Percent Auto 10.3 % (2-11); Neutrophils Absolute Auto 2.3 X10*3/uL (2.0-8.3); Neutrophils Percent Auto 47.1 % (45-73); Platelet Count 189 X10*3/uL (160-400); Red Blood Count 4.77 X10*6/uL (4.60-5.80); Red Cell Distribution Width 13.3 % (11.0-16.0)
== END 2021-02-08 09:26 | disposition home or self-care (01) ==
LOC: HO.LAB 09:25
PROVIDERS: PCP Nurse Practitioner Family; Visit Provider Internal Medicine Pulmonary Disease
DX: J45.909 Unspecified asthma, uncomplicated (principal); F17.210 Nicotine dependence, cigarettes, uncomplicated; F12.90 Cannabis use, unspecified, uncomplicated; Z01.82 Encounter for allergy testing; Z91.09 Other allergy status, other than to drugs and biological substances
CPT/HCPCS: 36415; 82785; 85025; 86003; 99202

== ENCOUNTER 2021-02-25 11:44 | Emergency (ER) | payer MEDICAID, SELFPAY ==
[2021-02-25 12:00] VITALS: BP 136/101; PULSE 96; RESP 16; TEMP 36.4; O2SAT 97; BMI 29.1
[2021-02-25 12:30] LABS: OBS Int Ctl Valid YES; OBS1 NEGATIVE (NEGATIVE)
--- NOTE | 2021-02-25 12:38 | ED.GENADULT ---
HPI - General Adult General Chief complaint: General Medical Stated complaint: personal Time Seen by Provider: 02/25/21 12:16 Source: patient Mode of arrival: ambulatory Limitations: no limitations History of Present Illness HPI narrative: Patient presents to the ED for one blood in toilet and on tissue after painful defecation with rectal pain that occurred this morning. patient states this has happened before in the past. patient denies any abdominal pain, nausea, vomitting, vomitting blood, dizziness, weakness, or any recent trauma. Patient denies any black stool. Patient states pmh of hemmhoriods. Related Data Previous Rx's Medication Instructions Recorded naltrexone 50 mg tablet 50 mg PO DAILY #30 tab 05/19/20 varenicline 0.5 mg (11)-1 mg (42) See Rx Instructions PO PER PKG DIR 05/19/20 tablets in a dose pack (Chantix #53 ea Starting Month Box) diphenhydramine HCl 25 mg capsule 25 mg PO TID PRN #30 cap 09/04/20 (Benadryl) famotidine 20 mg tablet (Pepcid) 20 mg PO BID #20 tab 09/04/20 prednisone 20 mg tablet 40 mg PO DAILY #10 tab 09/04/20 fluticasone furoate 200 1 inh INHALATION DAILY 30 Days #1 02/08/21 mcg-vilanterol 25 mcg/dose ea inhalation powder (Breo Ellipta) docusate sodium 100 mg capsule 100 mg PO BID 7 Days #14 cap 02/25/21 (Colace) hydrocortisone acetate 25 mg 25 mg CO BID #12 ea 02/25/21 rectal suppository (Anusol-HC) naproxen 500 mg tablet 500 mg PO BID PRN #20 tab 02/25/21 Allergies Allergy/AdvReac Type Severity Reaction Status Date / Time No Known Allergies Allergy Verified 02/08/21 09:26 Seasonal Allergy Unknown Unknown Uncoded 02/08/21 09:26 Review of Systems Review of Systems: Yes all other systems are reviewed and are negative Constitutional: Constitutional: Reports as per HPI and Reports no additional constitutional complaints Eyes: Eyes: Reports as per HPI and Reports no additional eye complaints ENT: Reports system reviewed and no additional complaints, except as documented and Reports as per HPI Cardiovascular: Cardiovascular: Reports as per HPI and Reports no additional cardiovascular complaints Respiratory: Respiratory: Reports as per HPI and Reports no additional respiratory complaints Gastrointestinal: Gastrointestinal: Reports as per HPI and Reports no additional gastrointestinal complaints Comments: rectal pain and one episode of blood in stool Genitourinary: Genitourinary: Reports no additional male genitourinary complaints and Reports as per HPI Musculoskeletal: Musculoskeletal: Reports no additional musculoskeletal complaints and Reports as per HPI Integumentary/Breasts: Skin/Breast: Reports system reviewed and no additional complaints, except as docu and Reports as per HPI Neurologic: Reports system reviewed and no additional complaints, except as documented and Reports as per HPI Psychiatric: Psychiatric: Reports no additional psychiatric complaints and Reports as per HPI [facility] Past Medical History Medical History (Updated 02/25/21 @ 13:03 by LYDIA Gaytan) Opioid use disorder Seasonal asthma Social History Social History Alcohol intake: current Alcohol intake frequency: 3 or more drinks per day Alcohol type: beer and hard liquor Substance Use Type: Marijuana Advance Directives: No Physical Exam Vital Signs: Vital Signs: Last Vital Signs Temp 97.5 F 02/25/21 12:00 Pulse 96 02/25/21 12:00 Resp 16 02/25/21 12:00 BP 136/101 H 02/25/21 12:00 Pulse Ox 97 02/25/21 12:00 Body Mass Index 29.1 Const: General: cooperative, healthy appearing, comfortable, no acute distress, well developed, alert and awake Orientation/consciousness: patient oriented x3 HENMT: Head: Yes normal to inspection, Yes No palpable skull fracture present, Yes normocephalic, Yes atraumatic and No abrasion Eyes: General: appearance normal, both eyes and all related structures Neck: Neck: Yes normal visual inspection, Yes full ROM, Yes no lymphadenopathy, Yes no meningeal signs, Yes trachea midline, Yes supple and No tender Chest: Chest palpation & inspection: normal inspection of the chest and normal palpation of entire chest wall Resp: Effort & Inspection: normal respiratory effort and able to speak in complete sentences Cardio: Jugular venous distension: no JVD Heart sounds: S1 normal heart sound present and S2 normal heart sound present GI: Other: rectal exam positive for internal hemmhoirds. negative for thrombosed hemhmhoids. negative for alfredo blood, black stool, or melena. Negative for any rectal/anal abscess Inspection: Yes normal to inspection and No abdominal wall ecchymosis Palpation (GI): Soft to palpation, not firm, nontender, no guarding and not rigid : General: No CVA tenderness and Yes no CVA tenderness Back/Spine/Pelvis: Back: no CVA tenderness, No CVA tenderness and No back tenderness Skin: General skin exam: no rashes or lesions noted and elasticity normal Neuro: General: patient oriented x3, gait normal, no meningeal signs and CN's II-XI intact bilaterally Cranial nerves: Yes CN's II-XII intact bilaterally Extrem: General: Yes normal to inspection and Yes full ROM Psych: Appearance: grossly normal, well kempt and not disheveled Course Course Course Narrative: History and physcial exam indicated hemmhoirds. Reevaluation(s) Reevaluation #1: Stool guaic is negative. Not suspecting GI bleed. Will dsicharge with anusol and colace Time: 13:01 Medical Decision Making [facility] Narrative Medical decision making narrative: Hemmhroids Lab Data Labs: Lab Results 02/25/21 Range/Units 12:22 Stool Occult Blood NEGATIVE (NEGATIVE) Discharge Plan Discharge Clinical Impression: Acute hemorrhoid Patient Disposition: Home, Self-Care Instructions: Hemorrhoids (ED), Sitz Bath (DC) Additional Instructions: You have hemorrhoids. You will be discharged with rectal cream and colace. You will need follow up with Surgeon. Return to the ED for abdominal pain, profuse rectal bleeding, nausea, emesis, vomitting, blood, coughing up blood, black stool, weakness, dizziness, or any other concerning symptoms. Prescriptions: New hydrocortisone acetate [Anusol-HC] 25 mg suppository 25 mg CO BID Qty: 12 RF: 0 docusate sodium [Colace] 100 mg capsule 100 mg PO BID 7 Days Qty: 14 RF: 0 naproxen 500 mg tablet 500 mg PO BID PRN (Reason: pain) Qty: 20 RF: 0 No Action prednisone 20 mg tablet 40 mg PO DAILY Qty: 10 RF: 0 famotidine [Pepcid] 20 mg tablet 20 mg PO BID Qty: 20 RF: 0 diphenhydramine HCl [Benadryl] 25 mg capsule 25 mg PO TID PRN (Reason: allergic reaction) Qty: 30 RF: 0 Breo Ellipta 200-25 mcg/dose blister with device 1 inh inhalation DAILY 30 Days Qty: 1 RF: 6 naltrexone 50 mg tablet 50 mg PO DAILY Qty: 30 RF: 0 Chantix Starting Month Box 0.5 mg (11)- 1 mg (42) tablets,dose pack See Rx Instructions PO PER PKG DIR Qty: 53 RF: 0 Referrals: Kike Allen MD [Physician] - 2 days (Hemorrhoids and rectal bleeding) Manny Georges [Physician] - 2 days (rectal bleeding most likely due to hemorrhoids. Family history of colon CA, may need colonscopy.) Interventions: ED Discharge Assessment Last Done: 02/25/21 13:20 Discharge Date/Time: 02/25/21 13:21 Print Language: Lebanese
[2021-02-25] MEDS: Ibuprofen 800 MG TABLET PO (12:39)
== END 2021-02-25 13:21 | disposition home or self-care (01) ==
PROVIDERS: Physician Assistant; Emergency Provider Emergency Medicine
DX: K64.9 Unspecified hemorrhoids (principal); Z79.899 Other long term (current) drug therapy
CPT/HCPCS: 82272; 99284

== ENCOUNTER 2021-03-06 16:07 | Outpatient (REF) | payer MEDICAID, SELFPAY ==
--- NOTE | 2021-03-06 17:40 | PFT_ITS ---
Forced vital capacity is normal. FEV1, DHO65-13, and MVV moderately reduced. Post bronchodilator therapy, there is no significant change except for improved MVV due to better effort. Total lung capacity normal, residual volume is moderately increased. Diffusion capacity normal. CONCLUSION: Moderately severe obstructive airway disorder. No response to bronchodilator therapy. There is evidence of some air trapping. Diffusion capacity is preserved. MD ASTON Alaniz/MODL / [id number]
== END 2021-03-06 16:08 | disposition home or self-care (01) ==
LOC: HO.RESP 16:07
PROVIDERS: Visit Provider Internal Medicine Pulmonary Disease
DX: J45.909 Unspecified asthma, uncomplicated (principal)
CPT/HCPCS: 94060; 94727; 94729

== ENCOUNTER → 2021-03-14 15:03 | Outpatient (BNVA) | payer MEDICAID, SELFPAY | PROVIDERS: PCP Registered Nurse; Visit Provider Internal Medicine Pulmonary Disease | DX: J45.40 Moderate persistent asthma, uncomplicated (principal); J44.9 Chronic obstructive pulmonary disease, unspecified; F17.210 Nicotine dependence, cigarettes, uncomplicated; F12.90 Cannabis use, unspecified, uncomplicated; F11.99 Opioid use, unspecified with unspecified opioid-induced disorder; J30.2 Other seasonal allergic rhinitis | CPT/HCPCS: 99212 ==

== ENCOUNTER 2021-03-30 11:26 | Emergency (ER) | payer MEDICAID, SELFPAY ==
[2021-03-30 12:02] VITALS: BP 111/83; PULSE 96; RESP 18; TEMP 36.3; O2SAT 97; BMI 28.3
== END 2021-03-30 16:24 | disposition left against medical advice (07) ==
PROVIDERS: Emergency Provider Emergency Medicine
DX: S09.91XA Unspecified injury of ear, initial encounter (principal); S09.93XA Unspecified injury of face, initial encounter; W19.XXXA Unspecified fall, initial encounter; Y93.9 Activity, unspecified; Y92.9 Unspecified place or not applicable; Y99.9 Unspecified external cause status; F10.920 Alcohol use, unspecified with intoxication, uncomplicated; Y90.9 Presence of alcohol in blood, level not specified; F11.99 Opioid use, unspecified with unspecified opioid-induced disorder
CPT/HCPCS: 99281; 99282

== ENCOUNTER → 2021-04-26 13:27 | Outpatient (BNVA) | payer MEDICAID, SELFPAY | PROVIDERS: PCP Registered Nurse; Referring Provider Nurse Practitioner Family; Visit Provider Surgery | DX: K64.4 Residual hemorrhoidal skin tags (principal); K64.8 Other hemorrhoids | CPT/HCPCS: 46600; 99202 ==

== ENCOUNTER 2021-06-19 14:40 | Outpatient (REF) | payer MEDICAID, SELFPAY ==
--- NOTE | ~2021-06-19 | US_ITS ---
EXAMINATION: US VENOUS ULTRASOUND WITH DOPPLER LOWER EXTREMITY, LEFT CLINICAL INFORMATION: Pain COMPARISON: None TECHNIQUE: Ultrasound of the deep veins is performed from the hip to the calf with compression sonography and color and pulse Doppler assessment. Spectral analysis with color-flow imaging is performed. FINDINGS: There is normal venous compression and respiratory variation and augmented flow. The visualized common femoral vein, superficial femoral vein, profunda femoral vein, popliteal vein, and the trifurcation region shows no evidence of deep venous thrombosis. There is no significant popliteal fossa cyst. US/US venous duplex LE LT IMPRESSION: No DVT demonstrated in the left lower extremity. No Vyas's cyst.
== END 2021-06-19 14:41 | disposition home or self-care (01) ==
LOC: HO.US 14:40
PROVIDERS: Visit Provider Nurse Practitioner Family
DX: M25.562 Pain in left knee (principal)
CPT/HCPCS: 93971

== ENCOUNTER 2021-07-10 14:46 | Outpatient (REF) | payer MEDICAID, SELFPAY ==
--- NOTE | ~2021-07-10 | US_ITS ---
EXAMINATION: US SOFT TISSUE OF THE NECK CLINICAL INFORMATION: Contusion of neck. COMPARISON: None TECHNIQUE: Linear transducer grayscale and color Doppler examination of the area of pain and bruising posterior to right ear. FINDINGS: There is a 0.7 x 0.6 x 0.4 cm lesion posterior to the right ear in the area of palpable abnormality. This is hypoechoic with central hyperechoic focus and probably represents a small lymph node. This is normal in size and demonstrate normal ultrasound morphology. US/US soft tiss head and/or neck IMPRESSION: Palpable abnormality probably corresponds to a small lymph node.
== END 2021-07-10 14:47 | disposition home or self-care (01) ==
LOC: HO.US 14:46
PROVIDERS: Visit Provider Internal Medicine
DX: S10.93XA Contusion of unspecified part of neck, initial encounter (principal)
CPT/HCPCS: 76536

== ENCOUNTER 2022-10-31 09:18 | Outpatient (REF) | payer MEDICAID, SELFPAY ==
--- NOTE | 2022-10-31 09:29 | EMG_ITS ---
FINDINGS: Left median and ulnar motor and sensory studies were performed. Left radial sensory study was performed and paraspinal muscles were tested with a needle. IMPRESSION: 1. Mild left ulnar neuropathy across elbow. 2. There is no evidence of median neuropathy or radiculopathy. MD SHASHANK Craig/RAJATL / [id number]
== END 2022-10-31 09:19 | disposition home or self-care (01) ==
LOC: HO.NEURO 09:18
PROVIDERS: PCP Registered Nurse; Visit Provider Family Medicine
DX: R20.2 Paresthesia of skin (principal)
CPT/HCPCS: 95886; 95909

== ENCOUNTER 2022-12-11 15:11 | Outpatient (REF) | payer OTHER, SELFPAY ==
[2022-12-11 16:03] LABS: MANUAL DIFF FLAG NO
[2022-12-11 16:20] LABS: Basophils Percent Auto 0.7 % (0-2); Eosinophils Absolute Auto 0.1 X10*3/uL (0.0-0.4); Hematocrit 47.7 % (42.0-52.0); Imm Gran Abs Auto 0.03 X10*3/uL (0.00-0.03); Imm Gran Pct Auto 0.5 % (0.0-0.4); Lymphocytes Absolute Auto 1.5 X10*3/uL (1.2-4.9); Mean Corpuscular HGB Conc 33.5 g/dl (31.0-36.0); Mean Corpuscular Volume 95.4 fL (80.0-98.0); Mean Platelet Volume 10.4 fL (9.4-12.4); Monocytes Absolute Auto 0.5 X10*3/uL (0.1-1.2); Monocytes Percent Auto 8.9 % (2-11); Neutrophils Absolute Auto 3.7 x10*3/uL (2.0-8.3); Neutrophils Percent Auto 62.9 % (45-73); Platelet Count 195 X10*3/uL (160-400); Red Cell Distribution Width 13.5 % (11.0-16.0); White Blood Count 5.9 X10*3/uL (4.8-10.8)
[2022-12-11 17:08] LABS: Estimated Average Glucose 100 mg/dL; Hemoglobin A1c % 5.1 %
[2022-12-11 17:12] LABS: Alanine Aminotransferase 36 U/L (0-40); Albumin Level 4.4 g/dL (3.5-5.0); Alkaline Phosphatase 87 U/L (39-117); Anion Gap 14 (12-20); Aspartate Amino Transferase 30 U/L (5-37); Bilirubin Total 0.4 mg/dL (0.0-1.0); Blood Urea Nitrogen 12 mg/dL (9-16); Calcium 10.4 mg/dL (8.4-10.2); Carbon Dioxide 29 mmol/L (22-29); Chloride 105 mmol/L (96-108); Estimated Glomerular Filt Rate > 60; Glucose Random 91 mg/dL (60-115); Lipase 55 U/L (8-78); Potassium 4.4 mmol/L (3.3-5.1); Sodium 144 mmol/L (135-145); Total Protein 7.7 g/dL (6.5-8.0)
[2022-12-12 04:20] LABS: HBS Num1 142.51 mIU/mL (0-7.99); HBc Num1 0.04 S/CO (0.00-0.79); HBsAGNum1 0.29 S/CO (0.00-0.99); HIV AB/AG Nonreactive (Nonreactive); HIV Num 1 0.06 S/CO (0.00-0.99); Hepatitis A Antibody IgM 0.19 Index (0-0.79); Hepatitis B Core Antibody Nonreactive (Nonreactive); Hepatitis B Surface Antigen Negative (Negative); ~HepC Num1 0.07 S/CO (0.00-0.79); ~Hepatitis A Antibody IgM Nonreactive (Nonreactive); ~Hepatitis B Surface Antibody REACTIVE (Nonreactive); ~Hepatitis C Antibody Nonreactive (Nonreactive)
[2022-12-13 03:04] LABS: Syphilis Screen Nonreactive (Nonreactive)
== END 2022-12-11 15:12 | disposition home or self-care (01) ==
LOC: HO.HHCL 15:11
PROVIDERS: Visit Provider Registered Nurse
DX: Z00.00 Encounter for general adult medical examination without abnormal findings (principal); R10.13 Epigastric pain
CPT/HCPCS: 36415; 80053; 83036; 83690; 85025; 86704; 86706; 86709; 86780; 86803; 87340; 87389

== ENCOUNTER 2024-01-21 10:32 | Outpatient (REF) | payer OTHER, SELFPAY ==
[2024-01-21 13:06] LABS: MANUAL DIFF FLAG NO
[2024-01-21 13:28] LABS: Basophils Percent Auto 0.4 % (0-2); Eosinophils Absolute Auto 0.1 X10*3/uL (0.0-0.4); Hematocrit 44.2 % (42.0-52.0); Hemoglobin 14.9 g/dl (14.0-18.0); Imm Gran Abs Auto 0.01 X10*3/uL (0.00-0.03); Imm Gran Pct Auto 0.2 % (0.0-0.4); Lymphocytes Absolute Auto 1.2 X10*3/uL (1.2-4.9); Lymphocytes Percent Auto 25.9 % (20-40); Mean Corpuscular HGB Conc 33.7 g/dl (31.0-36.0); Mean Corpuscular Hemoglobin 32.1 pg (27.0-33.0); Mean Corpuscular Volume 95.3 fL (80.0-98.0); Mean Platelet Volume 10.4 fL (9.4-12.4); Monocytes Absolute Auto 0.3 X10*3/uL (0.1-1.2); Monocytes Percent Auto 7.1 % (2-11); Neutrophils Absolute Auto 2.9 x10*3/uL (2.0-8.3); Neutrophils Percent Auto 63.4 % (45-73); Platelet Count 166 X10*3/uL (160-400); Red Blood Count 4.64 X10*6/uL (4.60-5.80); Red Cell Distribution Width 13.4 % (11.0-16.0); White Blood Count 4.6 X10*3/uL (4.8-10.8)
[2024-01-21 13:58] LABS: Estimated Average Glucose 103 mg/dL; Hemoglobin A1c % 5.2 % (<6.0)
[2024-01-21 14:11] LABS: Alanine Aminotransferase 27 U/L (0-40); Alkaline Phosphatase 86 U/L (39-117); Anion Gap 11 (12-20); Aspartate Amino Transferase 27 U/L (5-37); Bilirubin Total 0.5 mg/dL (0.0-1.0); Blood Urea Nitrogen 11 mg/dL (9-16); Calcium 9.3 mg/dL (8.4-10.2); Carbon Dioxide 24 mmol/L (22-29); Chloride 107 mmol/L (96-108); Cholesterol 172 mg/dL (<200); Estimated Glomerular Filt Rate > 60; Glucose Random 100 mg/dL (60-115); HDL Cholesterol 51 mg/dL (>40); LDL Cholesterol Calculated 89 mg/dL (<100); Potassium 4.2 mmol/L (3.3-5.1); Sodium 138 mmol/L (135-145); TSH reflex Free T4 0.47 uIU/mL (0.32-4.0); Triglycerides 160 mg/dL (<150)
[2024-01-22 07:25] LABS: HBS Num1 152.85 mIU/mL (0-7.99); HBc Num1 0.07 S/CO (0.00-0.79); HBsAGNum1 0.27 S/CO (0.00-0.99); HIV AB/AG Nonreactive (Nonreactive); HIV Num 1 0.08 S/CO (0.00-0.99); Hepatitis B Core Antibody Nonreactive (Nonreactive); Hepatitis B Surface Antigen Negative (Negative); ~HepC Num1 0.09 S/CO (0.00-0.79); ~Hepatitis B Surface Antibody REACTIVE (Nonreactive); ~Hepatitis C Antibody Nonreactive (Nonreactive)
[2024-01-22 07:40] LABS: Syphilis Screen Nonreactive (Nonreactive)
[2024-01-24 16:18] LABS: TS Negative Control Passed; TS Panel A 2; TS Panel B 0; TS Positive Control Passed; TSpotTB Negative (Negative)
== END 2024-01-21 10:33 | disposition home or self-care (01) ==
LOC: HO.HHCL 10:32
PROVIDERS: Visit Provider Registered Nurse
DX: Z00.00 Encounter for general adult medical examination without abnormal findings (principal); R23.2 Flushing; F10.20 Alcohol dependence, uncomplicated
CPT/HCPCS: 36415; 80053; 80061; 83036; 84443; 85025; 86481; 86704; 86706; 86780; 86803; 87340; 87389

== ENCOUNTER 2024-03-02 09:29 | Outpatient (REF) | payer OTHER, SELFPAY ==
--- NOTE | ~2024-03-02 | US_ITS ---
EXAMINATION: US ABDOMEN COMPLETE CLINICAL INFORMATION: 43-year-old male with extensive AUD and elevated GGT. COMPARISON: Ultrasound abdomen complete 11/04/2016. TECHNIQUE: Real-time imaging of the abdominal viscera. Limited visualization due to bowel gas. FINDINGS: PANCREAS: Limited visualization. Imaged portion of pancreatic body appears heterogeneous with areas of increased echogenicity but difficult to evaluate. ABDOMINAL AORTA: The proximal, mid, and distal segments are normal in caliber. INFERIOR VENA CAVA: Visualized portions are normal. LIVER: Mildly increased hepatic parenchymal heterogeneity and echogenicity could be associated with hepatocellular disease/hepatic steatosis and substantially limits visualization. Correlation with liver function tests and clinical exam recommended to determine further management. GALLBLADDER: No gallstones. No gallbladder wall thickening. COMMON BILE DUCT: Normal in caliber measuring 0.3 cm in diameter. RIGHT KIDNEY: No hydronephrosis. No renal calculi. Limited visualization. The kidney measures 10.2 cm in maximum dimension. LEFT KIDNEY: No hydronephrosis. No renal calculi. Limited visualization. The kidney measures 10.6 cm in maximum dimension. SPLEEN: Normal. The spleen measures 10.9 cm in maximum dimension. FREE FLUID: None. US/US abdomen complete IMPRESSION: 1. Mildly increased hepatic parenchymal heterogeneity and echogenicity could be associated with hepatocellular disease/hepatic steatosis and substantially limits visualization. Correlation with liver function tests and clinical exam recommended to determine further management. 2. Imaged portion of pancreatic body appears heterogeneous with areas of increased echogenicity but difficult to evaluate. CT scan recommended for further evaluation. Electronically signed by: Liz Brand MD 03/21/2024 08:56 PM [facility] [place]
== END 2024-03-02 09:30 | disposition home or self-care (01) ==
LOC: HO.US 09:29
PROVIDERS: PCP Registered Nurse; Visit Provider Registered Nurse
DX: R74.8 Abnormal levels of other serum enzymes (principal); F10.20 Alcohol dependence, uncomplicated
CPT/HCPCS: 76700

== ENCOUNTER 2024-05-07 16:11 | Outpatient (REF) | payer OTHER, SELFPAY ==
[2024-05-09 11:27] LABS: H Pylori Breath Test Negative (Negative)
== END 2024-05-07 16:12 | disposition home or self-care (01) ==
LOC: HO.LNP 16:11
PROVIDERS: Visit Provider Registered Nurse
DX: R10.13 Epigastric pain (principal)
CPT/HCPCS: 83013

== ENCOUNTER 2024-09-24 06:43 | Emergency (ER) | payer OTHER, SELFPAY ==
--- NOTE | ~2024-09-24 | XR_ITS ---
EXAMINATION: XR CHEST CLINICAL INFORMATION: chest pain COMPARISON: 01/11/2021 TECHNIQUE: 2 views of the chest were obtained. FINDINGS: The cardiac, hilar, and mediastinal contours are normal. The lungs are clear bilaterally. There is no pneumothorax or pleural effusion. There is no focal osseous or soft tissue abnormality. XR/XR chest 2V IMPRESSION: Normal chest. Electronically signed by: Du Garcia MD 09/24/2024 08:48 AM EDT
--- NOTE | 2024-09-24 06:45 | ECG_ITS ---
Test Reason : CHEST PAIN Blood Pressure : */* mmHG Vent. Rate : 90 BPM Atrial Rate : 90 BPM P-R Int : 144 ms QRS Dur : 82 ms QT Int : 362 ms P-R-T Axes : 90 67 57 degrees QTcB Int : 442 ms Normal sinus rhythm Normal ECG When compared with ECG of 18-May-2020 13:05, No significant change was found Referred By: Generic ED Physician Electronically Signed By: Jovanny Torres
[2024-09-24 07:00] VITALS: BP 136/88; PULSE 95; RESP 18; TEMP 37.3; O2SAT 97; BMI 28.3
[2024-09-24 07:04] LABS: MANUAL DIFF FLAG NO
--- NOTE | 2024-09-24 07:12 | ED_ITS ---
HPI - Chest Pain General Chief Complaint: Chest Pain Stated Complaint: Chest Pain Time Seen by Provider: 09/24/24 07:12 Source: patient Mode of arrival: ambulatory Limitations: no limitations History of Present Illness ED Provider: HPI narrative: 44-year-old male smokes marijuana and tobacco, use alcohol, drank yesterday, he states he does not drink daily but when he drinks it is heavy, presenting with cough congestion epigastric discomfort, midsternal tightness right along the middle maybe heartburn as he describes, no fevers or chills no hemoptysis no abdominal pain no diaphoresis reported. He does have history of asthma/COPD. His son was sick contact but that was a week ago as well. Related Data Previous Rx's ?Medication ?Instructions ?Recorded naltrexone 50 mg tablet 50 mg PO DAILY #30 tabs 05/19/20 diphenhydramine HCl 25 mg capsule 25 mg PO TID PRN allergic reaction 09/04/20 (Benadryl) #30 caps famotidine 20 mg tablet (Pepcid) 20 mg PO BID #20 tabs 09/04/20 hydrocortisone acetate 25 mg 25 mg MO BID #12 ea 02/25/21 rectal suppository (Anusol-HC) naproxen 500 mg tablet 500 mg PO BID PRN pain #20 tabs 02/25/21 budesonide-formoterol HFA 160 2 puff inhalation BID 30 days #1 ea 03/14/21 mcg-4.5 mcg/actuation aerosol inhaler (Symbicort) famotidine 40 mg tablet 40 mg PO BEDTIME 30 days #30 tabs 09/24/24 ondansetron 4 mg disintegrating 4 mg PO Q8H PRN nausea and 09/24/24 tablet vomiting #4 tabs sucralfate 1 gram tablet (Carafate) 1 g PO Q6H 7 days #28 tabs 09/24/24 Allergies Allergy/AdvReac Type Severity Reaction Status Date / Time No Known Allergies Allergy Verified 03/30/21 12:02 Seasonal Allergy Unknown Unknown Uncoded 09/24/24 07:01 Review of Systems 2 Constitutional: Constitutional: Reports as per [facility] Past Medical History Medical History (Updated 09/24/24 @ 08:45 by Shay Perkins DO) Bleeding hemorrhoids Opioid use disorder Seasonal asthma Social History Social History Alcohol intake: current Alcohol intake frequency: 3 or more drinks per day Alcohol type: beer and hard liquor Smoked in Last 30 Days: Yes Use of substances other than those prescribed or required for medical reasons: Yes Substance Use Type: Marijuana Advance Directives: No Advance Directives Information Provided: Yes Physical Exam 2 Vital Signs: Vital Signs: Last Vital Signs Temp 99.1 F 09/24/24 07:00 Pulse 71 09/24/24 07:56 Resp 16 09/24/24 07:56 BP 136/88 09/24/24 07:00 Pulse Ox 97 09/24/24 07:00 BMI result Body Mass Index 28.3 Const: Other: * Gen: ?Overall well-appearing patient * HEENT: PERRLA, EOMI, MMM, * Neck: Supple, no LAD * CV: RRR, no obvious murmurs appreciated * Resp: ?Expiratory wheezing and rhonchorous throughout * Abd: ?Bowel sounds are present, no tenderness no rebound no rigidity * MSK: FROM, strength 5/5 all extremities * Skin: Warm, dry, intact, * Neuro: ?Alert and oriented x3, moving upper and lower extremities symmetrically, no obvious facial asymmetry noted Medications Administered Generic Name Dose Route Start Last Admin Trade Name Freq PRN Reason Stop Dose Admin Lactated Ringer's 1,000 mls @ 0 mls/hr 09/24/24 07:45 09/24/24 08:18 Lr IV 1,000 mls/hr .Q0M TAI Administration Wide Open Discontinued Medications Generic Name Dose Route Start Last Admin Trade Name Freq PRN Reason Stop Dose Admin Al Hydroxide/Mg Hydroxide 30 ml 09/24/24 07:36 09/24/24 08:23 Magnesium Hydrox/Alum Hydrox 30 Ml Oral.Susp PO 09/24/24 07:37 30 ml ONCE ONE Administration Albuterol Sulfate 7.5 mg/ 10 mg 09/24/24 07:36 09/24/24 07:53 Albuterol Sulfate 2.5 mg INHALE 09/24/24 07:37 10 mg ONCE ONE Administration Famotidine 20 mg 09/24/24 07:36 09/24/24 08:22 Famotidine/Pf 20 Mg/2 Ml Vial IVPUSH 09/24/24 07:37 20 mg ONCE ONE Administration Lidocaine HCl 15 ml 09/24/24 07:36 09/24/24 08:23 Lidocaine Hcl Viscous 2 % 15 Ml Solution PO 09/24/24 07:37 15 ml ONCE ONE Administration Ondansetron HCl 4 mg 09/24/24 07:36 09/24/24 08:18 Ondansetron Hcl 4 Mg/2 Ml Vial IVPUSH 09/24/24 07:37 4 mg ONCE ONE Administration Medical Decision Making Medical Decision Making [facility] Narrative: 07:40 patient presenting with respiratory symptoms he does have history of asthma and COPD he is a smoker, we will give him a nebulizer treatment, the other concern is that he is experiencing epigastric discomfort with otherwise benign abdominal exam, all make sure this is not cardiac related no hypoxia tachycardic to suspect PE, no further abdominal exam findings to suspect SBO bowel perforation or appendicitis did not feel further imaging such as CT is indicated, chest x-ray to evaluate for pneumonia, pneumothorax and other considerations as below, with negative workup anticipating discharge otherwise may need to be admitted. Patient re-evaluated at 08:41, heartburn has improved, we spoke about smoking cessation, alcohol use, discussed work up with him Differential Diagnosis Differential Diagnoses: The differential diagnosis associated with the presentation includes Pneumonia, CHF, ACS, PE, pneumothorax, biliary pathology, pancreatitis, SBO Admission/Observation Consideration of admission/observation: Escalation of care including admission/observation considered Lab Data [facility] Lab Attestation statement: I reviewed the patient's lab results. 09/24/24 06:57 09/24/24 06:57 Labs: Lab Results 09/24/24 Range/Units 06:57 WBC 5.3 (4.8-10.8) X10*3/uL RBC 4.85 (4.60-5.80) X10*6/uL Hgb 15.8 (14.0-18.0) g/dl Hct 45.5 (42.0-52.0) % MCV 93.8 (80.0-98.0) fL MCH 32.6 (27.0-33.0) pg MCHC 34.7 (31.0-36.0) g/dl RDW 13.7 (11.0-16.0) % Plt Count 186 (160-400) X10*3/uL MPV 10.9 (9.4-12.4) fL Immature Gran % (Auto) 0.4 (0.0-0.4) % Neut % (Auto) 53.0 (45-73) % Lymph % (Auto) 32.3 (20-40) % [place] % (Auto) 10.5 (2-11) % Eos % (Auto) 3.2 (0-4) % Baso % (Auto) 0.6 (0-2) % Lymph # (Auto) 1.7 (1.2-4.9) X10*3/uL [place] # (Auto) 0.6 (0.1-1.2) X10*3/uL Eos # (Auto) 0.2 (0.0-0.4) X10*3/uL Baso # (Auto) 0.0 (0.0-0.2) X10*3/uL Abs Immat Gran (auto) 0.02 (0.00-0.03) X10*3/uL Absolute Neuts (auto) 2.8 (2.0-8.3) x10*3/uL Absolute Nucleated RBC 0.000 (0.0-0.012) X10*3/uL Nucleated RBC % (auto) 0.0 (0.0-0.2) /100WBC Sodium 143 (135-145) mmol/L Potassium 3.9 (3.3-5.1) mmol/L Chloride 108 (96-108) mmol/L Carbon Dioxide 25 (22-29) mmol/L Anion Gap 14 (12-20) BUN 16 (9-16) mg/dL Creatinine 0.88 (0.5-1.4) mg/dL Estim Creat Clear Calc 103.7 Estimated GFR > 60 Random Glucose 112 (60-115) mg/dL Calcium 9.6 (8.4-10.2) mg/dL Magnesium 1.8 (1.6-2.6) mg/dL Troponin I High Sens < 2.7 (<3.5-35.0) ng/L Independent Interpretation I performed an independent interpretation of an: EKG (90 otherwise normal ECG without dysrhythmia, AV [place]ari[place] blocks or ST-T changes to suspect underlying ACS, my independent interpretation) Discharge Plan Discharge Clinical Impression: Heart burn, Alcohol use disorder, Tobacco abuse Patient Disposition: Home, Self-Care Additional Instructions: Famotidine 20 mg before bedtime, Zofran as needed for nausea and vomiting every 6-8 hours, Carafate 1 pill 20 minutes before any meals for the next 1 week, he will continue having abdominal issues unless you address alcohol use and tobacco use as we have discussed, your workup today included physical examination, EKG, blood work, viral swab all which has been reassuring any worsening symptoms concerns come back to the ER otherwise follow up with the PCP if you have one. Prescriptions: New sucralfate [Carafate] 1 gram tablet 1 g PO Q6H 7 Days Qty: 28 0RF ondansetron 4 mg tablet,disintegrating 4 mg PO Q8H PRN (Reason: nausea and vomiting) Qty: 4 0RF famotidine 40 mg tablet 40 mg PO BEDTIME 30 Days Qty: 30 0RF No Action famotidine [Pepcid] 20 mg tablet 20 mg PO BID Qty: 20 0RF diphenhydramine HCl [Benadryl] 25 mg capsule 25 mg PO TID PRN (Reason: allergic reaction) Qty: 30 0RF hydrocortisone acetate [Anusol-HC] 25 mg suppository 25 mg MO BID Qty: 12 0RF naproxen 500 mg tablet 500 mg PO BID PRN (Reason: pain) Qty: 20 0RF naltrexone 50 mg tablet 50 mg PO DAILY Qty: 30 0RF budesonide-formoterol [Symbicort] 160-4.5 mcg/actuation HFA aerosol inhaler 2 puff inhalation BID 30 Days Qty: 1 6RF Print Language: Tamazight
--- OUTSIDE RECORDS SUMMARY | 2024-09-24 07:20 | XMS_ITS | Clinical Summary ---
Author Organization [facility] [employer] Address [address] [facility] [address] [place] [address] Care Team Providers Care Regulatory Internship Name Role Phone Madie Evans FORESTRY FOREMAN Primary Care Provider Allergies No known active allergies Medications * This document contains information received from the source organization and may not represent a complete record from that organization. sodium chloride (Garfield) 0.65 % nasal spray Administer 2 sprays into affected nostril(s) every 6 (six) hours. Active cyclobenzaprine (Flexeril) 5 MG tablet Take 1 tablet by mouth every 8 (eight) hours. 1 Active hydrocortisone 2.5 % cream apply by topical route 2 times every day a thin layer to the affected area(s) for 2 weeks then go to cerave 2 Active Salicylic Acid 40 % pads Apply 1 patch topically every other day. 36 each 3 Active Multiple Vitamin (multivitamin) tabletIndications :Alcohol dependence, uncomplicated (CMS/HCC) Take 1 tablet by mouth Once per day. 90 tablet 3 4 01/19/20 25 Active folic acid (Folvite) 1 MG tabletIndications :Alcohol dependence, uncomplicated (CMS/HCC) Take 1 tablet (1,000 mcg) by mouth in the morning. 90 tablet 1 4 Active Ventolin HFA 108 (90 Base) MCG/ACT inhalerIndication s:Shortness of breath INHALE 2 PUFFS EVERY 6 (SIX) HOURS IF NEEDED FOR SHORTNESS OF BREATH OR WHEEZING. 18 g 3 4 Active pantoprazole (Protonix) 40 MG EC tabletIndications :Epigastric pain Take 1 tablet (40 mg) by mouth 2 times daily. Do not crush, chew, or split. 60 tablet 1 5 05/07/19 26 Active ARIPiprazole (Abilify) 10 MG tabletIndications :Bipolar 1 disorder (CMS/HCC) Take 1 tablet (10 mg) by mouth Once per day. 30 tablet 1 5 Active sertraline (Zoloft) 50 MG tabletIndications :Depressive disorder Take 1 tablet (50 mg) by mouth in the morning. as directed 30 tablet 1 5 Active traZODone (Desyrel) 100 MG tabletIndications :Depressive disorder Take 1 tablet (100 mg) by mouth if needed at bedtime for sleep. 30 tablet 1 5 Active benzoyl peroxide (PanOxyl Foaming Wash) 10 % external washIndications:F olliculitis Apply topically 2 times daily. 227 g 5 06/04/19 26 Active Active Problems Problem Noted Date Diagnosed Date PTSD (post-traumatic stress disorder) 05/07/2024 Anxiety 05/07/2024 Acute low back pain 03/23/2022 Acute pain of both knees 03/23/2022 Alcoholic fatty liver 03/23/2022 Hematoma of neck 03/23/2022 Hemorrhoids 03/23/2022 Neck pain 03/23/2022 Asthma-chronic obstructive p ulmonary disease overlap syndrome 03/20/2021 Polysubstance abuse 12/29/2020 Scalp cyst 02/26/2018 Overview (01/22/2023): 02/19- complex scalp cyst, referred to general surgery Vitamin D deficiency 02/20/2018 Elevated amylase and lipase 02/20/2018 Overview (01/22/2023): 02/19- CT pending, referred back to gastroenterology Abnormal LFTs 05/26/2014 Sprain of thoracic region 05/26/2012 Sprain of sacroiliac ligament 05/26/2012 Tobacco use disorder 05/08/2012 Hypercholesteremia 05/08/2012 Depressive disorder 05/08/2012 Alcohol abuse 05/08/2012 Immunizations Immunization Administration Dates Next Due Hep A, Adult 06/19/2021,12/15/2020 Influenza Injectable Quadriv alant Preservative Free IIV4 MDCK 01/27/2020,02/17/2018 Influenza injectable quadriv alent preservative free 01/17/2023,02/01/2022,03/20/2021,06/10 Influenza, IIV3, injectable 06/10/2014, 3 Influenza, seasonal, injecta ble, preservative free 01/19/2024 Moderna Covid-19 Vaccine 12+ 04/06/2021,10/04/19 21,08/30/2020 Pfizer Covid-19 Vaccine 12+ Bivalent 02/06/2022 Pneumococcal Polysaccharide PPSV23 02/17/2018 Tdap 12/03/2019,05/08/2012 Social History Tobacco Use Types Packs/Day Years Used Date Smoking Tobacco: Every Day Cigarettes Passive Smoke Exposure: Current Smokeless Tobacco: Never Tobacco Cessation:Ready to Q uit: Not Asked; Counseling Given: Not Answered Alcohol Use Standard Drinks/Week Comments Yes 5 (1 standard drink = 0.6 oz pur e alcohol) Alcohol Answer Date Recorded Frequency of Alcohol Consumption Not on file 01/19/2024 Average Number of Drinks Not on file 024 Frequency of Binge Drinking Not on file 01/03 Score 0 01/19/2024 Depression Answer Date Recorded Patient Health Questionnaire-9 Score 20 01/19/2024 Patient Health Questionnaire-9 Score 20 01/19/2024 Last PHQ-9: Questionnaire Data Not on file 0 01/19/2024 Housing Stability Answer Date Recorded What is your housing situation today? I have malini lisa 01/19/[address] you li ve. Do you have problems with any of the following? None of the above 01/19/2024 Food Insecurity Answer Date Recorded Within the past 12 months, y ou worried that your food would run out before you got money to buy more: Never True 01/19/2024 Within the past 12 months,th e food you bought just didn't last and you didn't have enough money to get more: Never True Transportation Answer Date Recorded In the past 12 months, has l ack of transportation kept you from medical appts, meetings, work or from getting things needed for daily living? No 01/19/2024 Utilities Answer Date Recorded In the past 12 months, has t he electric, gas, oil or water company threatened to shut off services in your home? No 01/19/2024 Depression Answer Date Recorded Patient Health Questionnaire-2 Score 6 01/19/2024 Internet Access Answer Date Recorded Internet Access Q1 No 01/19/2024 Internet Access Q2 I do not want or need it 01/03 Sex and Gender Information Value Date Recorded Sex Assigned at Male 03/04/2022 10:38 AM EDT Legal Sex Male 10:38 AM EDT Gender Identity Male 03/04/2022 10:38 AM EDT Sexual Orientation Straight 03/04/2022 10 :38 AM EDT Last Filed Vital Signs Vital Sign Reading Time Taken Comments Blood Pressure 130/91 06/04/2024 10:29 AM EST Pulse 83 06/04/2024 10:29 AM EST Temperature 35.8 ??C (96.4 ??F) 06/04/2024 10:[address] Respiratory Rate 24 06/04/2024 10:29 AM EST Oxygen Saturation 98% 06/04/2024 10:29 AM EST Inhaled Oxygen Concentration - - Weight 83.7 kg (184 lb 9.6 oz) 06/04/2024 10:29 AM EST Height 152.4 cm (5') 05/07/2024 11:44 AM EST Body Mass Index 36.05 05/07/2024 11:44 AM EST Plan of Treatment Health Maintenance Due Date Last Done Comments Dental Prophylaxis 1981 Dental X-Ray: Full Mouth 1981 Disability Screening 1981 Family Planning (PISQ) 1996 Hepatitis B Vaccines (1 of 3 - 19+ 3-dose series) 2000 Pneumococcal Vaccine: Pediatrics (0 to 5 Years) and At-Risk Patients (6 to 49) Years) (2 of 2 - PCV) 02/17/2019 02/17/2018 Dental Oral Exam 12/20/2022 06/21/2022 Dental X-Ray: Bitewings 06/22/2023 06/21/2022 COVID-19 Vaccine ( season) 2024 02/06/2022, 04/06/2021, 10/03/2020, Additional history exists Alcohol/Substance Use Screening 01/18/2025 01/19/2024 Depression Screening 01/18/2025 01/19/2024, 01/19/20 24 SDOH Screening 01/18/2025 01/19/2024 Tobacco Screening 06/04/2025 06/04/2024 Lipid Panel 01/20/2029 01/21/2024, 02/05/2022 DTaP/Tdap/Td Vaccines (3 - Td or Tdap) 12/02/2029 12/03/2019, 05/08/2012 Zoster Vaccines (1 of 2) 2031 RSV Patients and Patients Aged 60 years or older (1 - 1-dose 75+ series) 2056 Hepatitis A Vaccines Completed 06/19/2021, 12/16/19 21 Influenza Vaccine Completed 01/19/2024, , 02/01/2022, Additional history exists HIV Screening Completed 01/21/2024, 08/0 01/2023, 02/05/2022, Additional history exists Hepatitis C Screening Completed 01/21/2024 , 12/11/2022, 02/05/2022, Additional history exists HIB Vaccines Aged Out No longer eligi ble based on patient's age to complete this topic HPV Vaccines Aged Out No longer eligi ble based on patient's age to complete this topic IPV Vaccines Aged Out No longer eligi ble based on patient's age to complete this topic Meningococcal B Vaccine Aged Out No l onger eligible based on patient's age to complete this topic Meningococcal Vaccine Aged Out No becki tatiana eligible based on patient's age to complete this topic RSV under 20 months Aged Out No longe r eligible based on patient's age to complete this topic Rotavirus Vaccines Aged Out No longer eligible based on patient's age to complete this topic Procedures Procedure Name Priority Date/Time Associated Diagnosis Comments LIPID PANEL, STANDARD Routine 01/21/2024 10:38 AM EDT Healthcare maintenance HEPATITIS C AB W/REFL TO HCV RNA, QN, PCR Routine 01/21/2024 10:35 AM EDT Healthcare maintenance HIV 1/2 ANTIGEN/ANTIBODY, FOURTH GENERATION W/RFL Routine 01/21/2024 10:35 AM EDT Healthcare maintenance PERIODIC ORAL EVALUATION - ESTABLISHED PATIENT Routine 06/21/2022 11:00 AM EST BITEWINGS - 4 RADIOGRAPHIC IMAGES Routine 06/21/2022 10:00 AM EST from Last 3 Months or Most Recently Relevant to Health Maintenance Results * (ABNORMAL) Lipid Panel, Standard (01/21/2024 10:38 AM EDT) Triglycerides 160(H) <150 mg/dL [facility] Comment:Desirable Triglyceri de: less than 150 mg/dLBorderline High Triglyceride 150-199 mg/dLHigh Triglyceride: 200-499 mg/dLVery High Triglyceride: greater than or equal to 5OO mg/dL Cholesterol 172 <200 mg/dL [facility] Comment:Desirable Cholestero l: less than 200 mg/dLBorderline High Cholesterol: 200-239 mg/dLHigh Cholesterol: greater than 239 mg/dL LDL Cholesterol Calculated 89 <100 mg/dL [facility] Comment:Desirable LDL: less than 100 mg/dLNear Optimal/Above Optimal LDL: 110- 129 mg/dLBorderline High LDL: 130-159 mg/dLHigh LDL: 160-189 mg/dLVery High LDL: greater than or equal to 190 mg/dL HDL Cholesterol 51 >40 mg/dL [facility] Comment:Desirable HDL: great er than 40 mg/dL Note: This HDL assay may give artificially low results in patients with liver disease. Blood Venous blood specimen / Unknown 01/21/2024 10:38 AM EDT 01/21/2024 1:00 PM EDT [facility] BLOOD ORDERABLES Final Re sult [facility] [address] [place] [phone] * Hepatitis C Antibody with Reflex to HCV, RNA, Quantitative, Real-Time PCR (01/21/2024 10:35 AM EDT) Hepatitis C Antibody Nonreactive Nonreactive [facility] Comment:Antibodies to HCV no t detected; does not exclude early acuteHCV infection. Blood Venous blood specimen / Unknown 01/21/2024 10:35 AM EDT 01/21/2024 1:00 PM EDT [facility] BLOOD ORDERABLES Final Re sult Performing Organization Address City/[facility]/ZIP Co de Phone Number [facility] [address] [place] [address] [phone] * HIV-1/2 Antigen and Antibodies, Fourth Generation, with Reflexes (01/21/2024 10:35 AM EDT) Pathologist [facility] HIV AB/AG Nonreactive Nonreactive [facility] Comment:HIV-1 p24 Ag and/or HIV-1/HIV-2 Ab not detected.A test result that is nonreactive does not exclude thepossibility of exposure to or infection with HIV-1 and/orHIV-2. Nonreactive results in this assay for individualswith prior exposure to HIV-1 and/or HIV-2 may be due toantigen and antibody levels that are below the limit ofdetection of this assay.The [employer] HIV Ag/Ab Combo assay result andsupplemental assay results should be interpreted inconjunction with the patient's clinical presentation,history and other laboratory results. If the results areinconsistent with clinical evidence, additional testing issuggested to confirm the result. Blood Venous blood specimen / Unknown 01/21/2024 10:35 AM EDT 01/21/2024 1:00 PM EDT [facility] BLOOD ORDERABLES Final Re sult Performing Organization Address City/[facility]/ZIP Co de Phone Number [facility] [address] [place] [address] [phone] from Last 3 Months or Most Recently Relevant to Health Maintenance Insurance [facility] Care Teams Regulatory Internship Relationship Specialty Start Date End Date [place] [facility] [address] [place] [phone] PCP - General Family Medicine 12/30/21
[2024-09-24 07:21] LABS: Anion Gap 14 (12-20); Blood Urea Nitrogen 16 mg/dL (9-16); Calcium 9.6 mg/dL (8.4-10.2); Carbon Dioxide 25 mmol/L (22-29); Chloride 108 mmol/L (96-108); Creatinine Clr Calc Pharmacy 103.7; Estimated Glomerular Filt Rate > 60; Glucose Random 112 mg/dL (60-115); Magnesium 1.8 mg/dL (1.6-2.6); Potassium 3.9 mmol/L (3.3-5.1); Sodium 143 mmol/L (135-145)
[2024-09-24 07:31] LABS: Troponin-I High Sensitivity < 2.7 ng/L (<3.5-35.0)
--- NOTE | 2024-09-24 07:33 | PC.NURSE ---
unlabored resp. skin pwd. spking full sentences. NSR on monitor. describes resp sx for over a week. daily hard liquor drinker.
[2024-09-24] MEDS: Albuterol Sulfate 7.5 MG, Albuterol Sulfate (0.083%) 2.5 MG 10 MG INHALE (07:53)
[2024-09-24 07:56] VITALS: PULSE 71; RESP 16; O2SAT 96
[2024-09-24] MEDS: ondansetron HCL 4 MG/2 ML VIAL IVPUSH (08:18)
[2024-09-24] MEDS: Lactated Ringers 1,000 ML 1000 ML IV (08:18)
[2024-09-24] MEDS: Famotidine/PF 20 MG/2 ML VIAL IVPUSH (08:22)
[2024-09-24] MEDS: Lidocaine HCl Viscous 2 % 15 ML SOLUTION PO (08:23)
[2024-09-24] MEDS: Magnesium Hydrox/Alum Hydrox 30 ML ORAL.SUSP PO (08:23)
[2024-09-24 08:25] LABS: Basophils Percent Auto 0.6 % (0-2); Eosinophils Absolute Auto 0.2 X10*3/uL (0.0-0.4); Eosinophils Percent Auto 3.2 % (0-4); Hematocrit 45.5 % (42.0-52.0); Hemoglobin 15.8 g/dl (14.0-18.0); Imm Gran Abs Auto 0.02 X10*3/uL (0.00-0.03); Imm Gran Pct Auto 0.4 % (0.0-0.4); Lymphocytes Absolute Auto 1.7 X10*3/uL (1.2-4.9); Lymphocytes Percent Auto 32.3 % (20-40); Mean Corpuscular HGB Conc 34.7 g/dl (31.0-36.0); Mean Corpuscular Hemoglobin 32.6 pg (27.0-33.0); Mean Corpuscular Volume 93.8 fL (80.0-98.0); Mean Platelet Volume 10.9 fL (9.4-12.4); Monocytes Absolute Auto 0.6 X10*3/uL (0.1-1.2); Monocytes Percent Auto 10.5 % (2-11); Neutrophils Absolute Auto 2.8 x10*3/uL (2.0-8.3); Platelet Count 186 X10*3/uL (160-400); Red Blood Count 4.85 X10*6/uL (4.60-5.80); Red Cell Distribution Width 13.7 % (11.0-16.0); White Blood Count 5.3 X10*3/uL (4.8-10.8)
[2024-09-24 09:41] VITALS: BP 128/88; PULSE 90; RESP 16; O2SAT 96
[2024-09-24 09:42] VITALS: TEMP 36.6
[2024-09-24 09:59] LABS: Influenza A PCR NEGATIVE (Negative); Influenza B PCR NEGATIVE (Negative); Resp Syncy Virus RNA Qual PCR NEGATIVE (Negative); SARS COV2 PCR INHOUSE NEGATIVE (Negative)
[2024-09-24 10:00] VITALS: BP 128/88; PULSE 90; RESP 18; TEMP 36.6; O2SAT 96
== END 2024-09-24 10:42 | disposition home or self-care (01) ==
PROVIDERS: Emergency Provider Emergency Medicine
DX: R07.89 Other chest pain (principal); R12 Heartburn; F10.10 Alcohol abuse, uncomplicated; Y90.9 Presence of alcohol in blood, level not specified; F17.210 Nicotine dependence, cigarettes, uncomplicated; Z03.818 Encounter for observation for suspected exposure to other biological agents ruled out; Z79.899 Other long term (current) drug therapy
CPT/HCPCS: 0241U; 36415; 71046; 80048; 83735; 84484; 85025; 93005; 94640; 96374; 96375; 99284; 99285; J1308; J2405; J7120

== ENCOUNTER → 2024-09-24 06:45 | Outpatient (BNV) | payer OTHER, SELFPAY | PROVIDERS: Emergency Provider Emergency Medicine; Visit Provider Internal Medicine Cardiovascular Disease | DX: R07.9 Chest pain, unspecified (principal) | CPT/HCPCS: 93010 ==

== ENCOUNTER → 2024-09-24 08:20 | Outpatient (BNV) | payer OTHER, SELFPAY | PROVIDERS: Emergency Provider Emergency Medicine; Visit Provider Radiology Diagnostic Radiology | DX: R07.9 Chest pain, unspecified (principal) | CPT/HCPCS: 71046 ==

== ENCOUNTER 2024-11-10 09:30 | Outpatient (AMB) | payer OTHER, SELFPAY ==
--- NOTE | 2024-11-10 09:32 | MHC.OFFVIS ---
Vital Signs 11/10/24 10:05 Height 5 ft 5 in Weight 180 lb 12.465 oz BMI 30.1 BP 105/73 Blood Pressure Location Lt brachial Position Sitting Pulse 73 Intake Visit Reasons: GERD, epi pain, dyspepsia. Consider colo/egd Intake Note: New pt for initial eval of chronic epigastric pain, GERD. Consider EGD/Initial [place]. CC; States that his stools are usually soft / loose stools. Abdominal pains, states he gets acid reflux a lot - last time it was so bad he went to the ED. Analysis Specialist Required: No Accompanied by: Self / Same As Patient Allergies Seasonal Allergies Allergy (Unknown, Verified 11/10/24 10:06) Unknown HPI HPI GERD, epi pain, dyspepsia. Consider colo/egd: Details: 44-year-old male with past medical history of asthma, ETOH use is here today for initial consultation. Patient reports frequent epigastric pain postprandially. Patient reports acid reflux and occasional dyspepsia without dysphagia or odynophagia. Patient reports feeling bloated postprandially. Reports that he is moving his bowels. History of blood in his stools. Happens usually after her bowel movements. Reports occasional melena, specially after he drinks heavily. Denies unintentional weight loss or ribbon like stools. Patient admits that he drinks alcohol. Patient reports that he does not drink every day, however when he does drink he drinks very heavily. He also uses marijuana smoke cigarettes daily. No longer uses opiates or cocaine. Patient reports worsening shortness of breath. History of asthma. Shortness of breath with chest pain and pressure. Denies presyncope or syncope. Ultrasound from February of 2024 showed: LIVER: Mildly increased hepatic parenchymal heterogeneity and echogenicity could be associated with hepatocellular disease/hepatic steatosis and substantially limits visualization. Correlation with liver function tests and clinical exam recommended to determine further management. [facility] Medical History Bleeding hemorrhoids Opioid use disorder Seasonal asthma Family History (Updated 11/10/24 @ 10:06 by DANDY Clemente) Maternal Grandmother Breast cancer Social History Alcohol intake: current Alcohol intake frequency: 3 or more drinks per day Alcohol type: beer and hard liquor Substance Use Type: Marijuana Review of Systems Const Denies weight gain and Denies weight loss ENT Reports no additional complaints, Denies dysphagia and Denies odynophagia Card Reports no additional complaints Resp Reports no additional complaints GI Denies abdominal pain, Denies belching, Denies melena, Reports bloating, Reports hematochezia (Occasional), Denies change in bowel habits, Denies constipation, Denies dysphagia, Denies excessive flatus, Denies dyspepsia, Reports heartburn, Denies diarrhea, Denies loose stools, Denies nausea, Denies odynophagia and Denies vomiting Reports no additional complaints Musc Reports no additional complaints Neuro Reports no additional complaints Psych Reports no additional complaints Endo Reports no additional complaints Physical Exam Vital Signs: Last Vital Signs Pulse 73 11/10/24 10:05 BP 105/73 11/10/24 10:05 BMI result Body Mass Index 30.1 Const General: healthy appearing, no acute distress and well developed Nutritional Appearance: well nourished and obese Orientation/consciousness: patient oriented x3 Resp Effort & Inspection: normal respiratory effort, able to speak in complete sentences, no tracheal deviation and symmetric chest movement Auscultation: clear to auscultation bilaterally Cardio Rate: regular rate GI Inspection: Yes normal to inspection, No distended and Yes obesity Palpation (GI): Soft to palpation, not firm, nontender and No hepatosplenomegaly present Auscultation: normal bowel sounds General: Yes no CVA tenderness Back/Spine/Pelvis Back: no CVA tenderness Skin General skin exam: elasticity normal, turgor normal and dry skin Neuro General: patient oriented x3 Psych Appearance: grossly normal Mental Status: mental status grossly normal Assessment & Plan Assessment & Plan (1) Bleeding hemorrhoids: Code(s): K64.9 - Unspecified hemorrhoids Category: Medical (2) GERD (gastroesophageal reflux disease): Code(s): K21.9 - Gastro-esophageal reflux disease without esophagitis Qualifiers: Esophagitis presence: esophagitis presence not specified Qualified Code(s): K21.9 - Gastro-esophageal reflux disease without esophagitis (3) Melena: Code(s): K92.1 - Melena (4) Postprandial epigastric pain: Code(s): R10.13 - Epigastric pain (5) Chest pain: Code(s): R07.9 - Chest pain, unspecified Qualifiers: Chest pain type: unspecified Qualified Code(s): R07.9 - Chest pain, unspecified Plan Will check liver panel, lipase, ultrasound with elastography as ultrasound from February of 2024 shows room hepatic steatosis. Patient also drink alcohol quite often. Will check vitamin B12, folate, vitamin-D level. Patient will be sent for upper GI with barium swallow. We will be sending him for upper endoscopy and colonoscopy, however patient is reporting worsening shortness of breath along with chest pain with minimal exertion. Referral to Cardiology to rule out CAD and for risk stratification before going for procedure. Patient is at risk as he is a smoker, use cocaine in the past. Patient will take famotidine at night time and will try to avoid dietary triggers. Discussed with patient trying to avoid alcohol, stop smoking cigarettes. Follow-up in the office in 3 months, sooner on as needed basis. Patient is agreeable to this plan and verbalizes understanding of instructions. He was given the opportunity to ask questions and all questions answered. Orders: Orders Liver Panel 11/10/24 R74.01 - Elevation of levels of liver transaminase levels Vitamin B12 and Folate 11/10/24 R19.7 - Diarrhea, unspecified Vitamin D 25-OH (D2 and D3) 11/10/24 E55.9 - Vitamin D deficiency, unspecified US abdomen comp w elastography 11/10/24 R79.89 - Other specified abnormal findings of blood chemistry Lipase 11/10/24 R10.9 - Unspecified abdominal pain FL upper GI w Ba Swallow 11/10/24 K21.9 - Gastro-esophageal reflux disease without esophagitis Referrals Cardiology Referral R07.9 - Chest pain, unspecified, Z01.810 - Encounter for preprocedural cardiovascular examination Medications: New famotidine 40 mg PO BEDTIME 90 tabs 3RF K21.9 - Gastro-esophageal reflux disease without esophagitis Discontinued famotidine Discontinued Reason: Patient Completed Course 40 mg PO BEDTIME 30 days 30 tabs 0RF Coding Level of Care Code New Pt Level 4 (00308) Diagnoses Bleeding hemorrhoids K64.9 Gastroesophageal reflux disease, unspecified whether esophagitis present K21.9 Esophagitis presence: esophagitis presence not specified Melena K92.1 Postprandial epigastric pain R10.13 Chest pain, unspecified type R07.9 Chest pain type: unspecified Time Spent (min) 45 Comment 30 minutes spent with patient and additional 15 minutes spent reviewing his records
--- OUTSIDE RECORDS SUMMARY | 2024-11-10 09:59 | XMS_ITS | Clinical Summary ---
Author Organization [employer] Address [address] [facility] [address] [place] [address] Care Team Providers Care Varnish Inspector Name Role Phone Madie Evans PECAN MALLOW DIPPER Primary Care Provider [phone] Allergies No known active allergies Medications * This document contains information received from the source organization and may not represent a complete record from that organization. sodium chloride ([place]) 0.65 % nasal spray Administer 2 sprays [...] 83 06/04/2024 10:29 AM EST Temperature 35.8 C (96.4 F) 06/04/2024 10:29 AM EST Respiratory Rate 24 06/04/2024 10:29 AM EST [...] Disability Screening 1981 Family Planning (PISQ) 1996 HPV Vaccines (1 - Male 3-dose series) 1996 Hepatitis B Vaccines (1 of 3 - 19+ 3-dose series) 2000 Pneumococcal Vaccine: Pediatrics (0 to 5 Years) and At-Risk Patients (6 to 49) Years (2 of 2 - PCV) 02/17/2019 02/17/2018 Dental Oral Exam 12/20/2022 06/21/2022 Dental X-Ray: Bitewings 06/22/2023 06/21/2022 COVID-19 Vaccine (5 - 2024-25 season) 2024 02/06/2022, 04/06/2021, 10/03/2020, Additional history exists Depression Monitoring 07/18/2024 01/19/2024, 024 Influenza Vaccine (#1) 2025 , 01/17/2023, 02/01/2022, Additional history exists Alcohol/Substance Use Screening 01/18/2025 01/19/2024 SDOH Screening 01/18/2025 01/19/2024 Tobacco Screening 06/04/2025 06/04/2024 Lipid Panel 01/20/2029 01/21/2024, 02/05/2022 DTaP/Tdap/Td Vaccines (3 - Td or Tdap) 12/02/2029 12/03/2019, 05/08/2012 Zoster Vaccines (1 of 2) 2031 RSV Patients and Patients Aged 60 years or older (1 - 1-dose 75+ series) 2056 Hepatitis A Vaccines Completed 06/19/2021, 12/16/19 21 HIV Screening Completed 01/21/2024, 08/0 01/2023, 02/05/2022, [...] 10:38 AM EDT) Triglycerides 160(H) <150 mg/dL [facility] Comment:Desirable Triglyceri de: less than 150 mg/dLBorderline High Triglyceride 150-199 mg/dLHigh Triglyceride: 200-499 mg/dLVery High Triglyceride: greater than or equal to 5OO mg/dL Cholesterol 172 <200 mg/dL [facility] Comment:Desirable Cholestero l: less than 200 mg/dLBorderline High Cholesterol: 200-239 mg/dLHigh Cholesterol: greater than 239 mg/dL LDL Cholesterol Calculated 89 <100 mg/dL [facility] Comment:Desirable LDL: less than 100 mg/dLNear Optimal/Above Optimal LDL: 110- 129 mg/dLBorderline High LDL: 130-159 mg/dLHigh LDL: 160-189 mg/dLVery High LDL: greater than or equal to 190 mg/dL HDL Cholesterol 51 >40 mg/dL [facility] Comment:Desirable HDL: great er than 40 mg/dL Note: This HDL assay may give artificially low results in patients with liver disease. Blood Venous blood specimen / Unknown 01/21/2024 10:38 AM EDT 01/21/2024 1:00 PM EDT [facility] LAB BLOOD ORDERABLES Final Re sult [facility] [address] [place] [phone] * Hepatitis C Antibody with Reflex to HCV, RNA, Quantitative, Real-Time PCR (01/21/2024 10:35 AM EDT) Hepatitis C Antibody Nonreactive Nonreactive [facility] Comment:Antibodies to HCV no t detected; does not exclude early acuteHCV infection. Blood Venous blood specimen / Unknown 01/21/2024 10:35 AM EDT 01/21/2024 1:00 PM EDT [facility] LAB BLOOD ORDERABLES Final Re sult Performing Organization Address City/[facility]/ZIP Co de Phone Number [facility] [address] [place] [phone] * HIV-1/2 Antigen and Antibodies, Fourth Generation, with Reflexes (01/21/2024 10:35 AM EDT) Pathologist [facility] HIV AB/AG Nonreactive Nonreactive [facility] Comment:HIV-1 p24 Ag and/or HIV-1/HIV-2 Ab not detected.A test result that is nonreactive does not exclude thepossibility of exposure to or infection with HIV-1 and/orHIV-2. Nonreactive results in this assay for individualswith prior exposure to HIV-1 and/or HIV-2 may be due toantigen and antibody levels that are below the limit ofdetection of this assay.The [employer] HIV Ag/Ab Combo assay result andsupplemental assay results should be interpreted inconjunction with the patient's clinical presentation,history and other laboratory results. If the results areinconsistent with clinical evidence, additional testing issuggested to confirm the result. Blood Venous blood specimen / Unknown 01/21/2024 10:35 AM EDT 01/21/2024 1:00 PM EDT [facility] LAB BLOOD ORDERABLES Final Re sult Performing Organization Address City/[facility]/ZIP Co de Phone Number [facility] [address] [place] [phone] from Last 3 Months or Most Recently Relevant to Health Maintenance Insurance [facility] Care Teams Varnish Inspector Relationship Specialty Start Date End Date AlexandriaMadie [facility] [address] [place] [phone] PCP - General Family Medicine 12/30/21
[2024-11-10 10:05] VITALS: BP 105/73; PULSE 73; BMI 30.1
== END 2024-11-10 10:27 | disposition home or self-care (01) ==
LOC: HO.HGI 09:31
PROVIDERS: PCP Registered Nurse; Visit Provider Nurse Practitioner Family
DX: K64.9 Unspecified hemorrhoids (principal); K21.9 Gastro-esophageal reflux disease without esophagitis; K92.1 Melena; R10.13 Epigastric pain; R07.9 Chest pain, unspecified
CPT/HCPCS: 99204

== ENCOUNTER → 2024-11-10 09:30 | Outpatient (BNVA) | payer OTHER, SELFPAY | PROVIDERS: PCP Registered Nurse; Visit Provider Nurse Practitioner Family | DX: K21.9 Gastro-esophageal reflux disease without esophagitis (principal); K64.9 Unspecified hemorrhoids; K92.1 Melena; R10.13 Epigastric pain; R07.9 Chest pain, unspecified | CPT/HCPCS: 99202 ==

== ENCOUNTER 2024-11-16 11:28 | Outpatient (REF) | payer OTHER, SELFPAY ==
[2024-11-16 12:30] LABS: Alanine Aminotransferase 75 U/L (0-40); Albumin Level 4.4 g/dL (3.5-5.0); Alkaline Phosphatase 103 U/L (39-117); Aspartate Amino Transferase 41 U/L (5-37); Lipase 32 U/L (8-78); Total Protein 6.9 g/dL (6.5-8.0)
--- OUTSIDE RECORDS SUMMARY | 2024-11-16 12:51 | XMS_ITS | Clinical Summary ---
Author Organization [employer] Address [address] [facility] [address] [place] [address] Care Team Providers Care Tower Operator Name Role Phone Madie Evans CRAB MEAT PROCESSOR Primary Care Provider [phone] Allergies No known active allergies Medications * This document contains information received from the source organization and may not represent a complete record from that organization. sodium chloride ([place]) 0.65 % nasal spray Administer 2 sprays into affected nostril(s) every 6 (six) hours. Active cyclobenzaprine (Flexeril) 5 MG tablet Take 1 tablet by mouth every 8 (eight) hours. 04/03/20 21 Active hydrocortisone 2.5 % cream apply by topical route 2 times every day a thin layer to the affected area(s) for 2 weeks then go to cerave 06/19/19 22 Active Salicylic Acid 40 % pads Apply 1 patch topically every other day. 36 each 08/14/19 23 Active Multiple Vitamin (multivitamin) tabletIndication s:Alcohol dependence, uncomplicated (CMS/HCC) Take 1 tablet by mouth Once per day. 90 tablet 3 01/19/20 24 2024 Active folic acid (Folvite) 1 MG tabletIndication s:Alcohol dependence, uncomplicated (CMS/HCC) Take 1 tablet (1,000 mcg) by mouth in the morning. 90 tablet 1 01/19/20 24 Active Ventolin HFA 108 (90 Base) MCG/ACT inhalerIndicatio ns:Shortness of breath INHALE 2 PUFFS EVERY 6 (SIX) HOURS IF NEEDED FOR SHORTNESS OF BREATH OR WHEEZING. 18 g 3 01/21/20 24 Active pantoprazole (Protonix) 40 MG EC tabletIndication s:Epigastric pain Take 1 tablet (40 mg) by mouth 2 times daily. Do not crush, chew, or split. 60 tablet 1 05/07/19 25 2025 Active ARIPiprazole (Abilify) 10 MG tabletIndication s:Bipolar 1 disorder (CMS/HCC) Take 1 tablet (10 mg) by mouth Once per day. 30 tablet 1 05/26/19 25 Active sertraline (Zoloft) 50 MG tabletIndication s:Depressive disorder Take 1 tablet (50 mg) by mouth in the morning. as directed 30 tablet 1 05/26/19 25 Active benzoyl peroxide (PanOxyl Foaming Wash) 10 % external washIndications: Folliculitis Apply topically 2 times daily. 227 g 06/04/19 25 2025 Active traZODone (Desyrel) 100 MG tabletIndication s:Depressive disorder TAKE 1 TABLET BY MOUTH AT BEDTIME NEEDED FOR SLEEP 30 tablet 11/13/19 25 Active traZODone (Desyrel) 100 MG tabletIndication s:Depressive disorder Take 1 tablet (100 mg) by mouth if needed at bedtime for sleep. 30 tablet 1 05/26/19 25 2024 Discontinued(R eorder (will not trigger notification to Pharmacy)) Active Problems Problem Noted Date Diagnosed Date [...] 05/08/2012 Depressive disorder 05/08/2012 Alcohol abuse 05/08/2012 Encounters * This document contains information received from the source organization and may not represent a complete record from that organization. Date Type Department Care Team Description 11/16/2024 Orders Only GENERIC EXTERNAL DATA DEPARTMENT Provider, Generic External Data 11/12/2024 Refill [facility] [address] [place] [address] [facility] Depressive disorder from Last 3 Months Immunizations Immunization Administration Dates Next Due Hep [...] 06/19/2021, 12/16/19 21 HIV Screening Completed 01/21/2024, 08/01/2023, 02/05/2022, Additional history exists Hepatitis C Screening [...] Procedure Name Priority Date/Time Associated Diagnosis Comments LIPASE Routine 11/16/2024 11:41 AM EDT HEPATIC FUNCTION PANEL Routine 11/16/2024 11:41 AM EDT LIPID PANEL, STANDARD Routine 01/21/2024 10:38 AM [...] Recently Relevant to Health Maintenance Results * Lipase (11/16/2024 11:41 AM EDT) Lipase 32 8 - 78 U/L [facility] 11/16/2024 11:4 1 AM EDT 11/16/2024 11:41 AM EDT us Generic External Data Provider LAB BLOOD ORDERAB LES Final Result [facility] [address] [place] [phone] * (ABNORMAL) Hepatic Function Panel (11/16/2024 11:41 AM EDT) Bilirubin, Total 0.6 0.0 - 1.0 mg/dL [facility] Bilirubin, Direct 0.2 0.0 - 0.5 mg/dL [facility] Aspartate Amino Transferase 41(H) 5 - 37 U/L [facility] Alanine Aminotransferase 75(H) 0 - 40 U/L [facility] Total Protein 6.9 6.5 - 8.0 g/dL [facility] Albumin Level 4.4 3.5 - 5.0 g/dL [facility] Alkaline Phosphatase 103 39 - 117 U/L [facility] 11/16/2024 11:4 1 AM EDT 11/16/2024 11:41 AM EDT us Generic External Data Provider LAB BLOOD ORDERAB LES Final Result [facility] [address] [place] [phone] * (ABNORMAL) Lipid Panel, Standard (01/21/2024 10:38 AM EDT) Triglycerides 160(H) <150 mg/dL [facility] Comment:Desirable Triglyceri de: less than 150 mg/dLBorderline High Triglyceride 150-199 mg/dLHigh Triglyceride: 200-499 mg/dLVery High Triglyceride: greater than or equal to 5OO mg/dL Cholesterol 172 <200 mg/dL [facility] Comment:Desirable Cholestero l: less than 200 mg/dLBorderline High Cholesterol: 200-239 mg/dLHigh Cholesterol: greater than 239 mg/dL LDL Cholesterol Calculated 89 <100 mg/dL [facility] Comment:Desirable LDL: less than 100 mg/dLNear Optimal/Above Optimal LDL: 110- 129 mg/dLBorderline High LDL: 130-159 mg/dLHigh LDL: 160-189 mg/dLVery High LDL: greater than or equal to 190 mg/dL HDL Cholesterol 51 >40 mg/dL [facility] Comment:Desirable HDL: great er than 40 mg/dL Note: This HDL assay may give artificially low results in patients with liver disease. Blood Venous blood specimen / Unknown 01/21/2024 10:38 AM EDT 01/21/2024 1:00 PM EDT [facility] LAB BLOOD ORDERABLES Final Re sult Performing Organization Address [facility] Co de Phone Number [facility] [address] [place] [phone] * Hepatitis C Antibody with Reflex to HCV, RNA, Quantitative, Real-Time PCR (01/21/2024 10:35 AM EDT) Hepatitis C Antibody Nonreactive Nonreactive [facility] Comment:Antibodies to HCV no t detected; does not exclude early acuteHCV infection. Blood Venous blood specimen / Unknown 01/21/2024 10:35 AM EDT 01/21/2024 1:00 PM EDT [facility] LAB BLOOD ORDERABLES Final Re sult Performing Organization Address [facility] Co de Phone Number [facility] [address] [place] [phone] * HIV-1/2 Antigen and Antibodies, Fourth Generation, with Reflexes (01/21/2024 10:35 AM EDT) HIV AB/AG Nonreactive Nonreactive [facility] Comment:HIV-1 p24 Ag and/or HIV-1/HIV-2 Ab not detected.A test result that is nonreactive does not exclude thepossibility of exposure to or infection with HIV-1 and/orHIV-2. Nonreactive results in this assay for individualswith prior exposure to HIV-1 and/or HIV-2 may be due toantigen and antibody levels that are below the limit ofdetection of this assay.The [employer] HIV Ag/Ab Combo assay result andsupplemental assay results should be interpreted inconjunction with the patient's clinical presentation,history and other laboratory results. If the results areinconsistent with clinical evidence, additional testing issuggested to confirm the result. Blood Venous blood specimen / Unknown 01/21/2024 10:35 AM EDT 01/21/2024 1:00 PM EDT [facility] LAB BLOOD ORDERABLES Final Re sult [facility] [address] [place] [phone] from Last 3 Months or Most Recently Relevant to Health Maintenance Insurance [facility] Care Teams Tower Operator Relationship Specialty Start Date End Date Madie Evans FNP [address] [place] [phone] PCP - General Family Medicine 12/30/21
[2024-11-16 13:00] LABS: Folate 9.4 ng/mL (> or = 4.0); Vitamin B12 373 pg/mL (200-900)
[2024-11-20 16:54] LABS: Vitamin D 25-OH, D2 <4 ng/mL; Vitamin D 25-OH, D3 36 ng/mL; Vitamin D 25-OH, Total 36 ng/mL (30-100)
== END 2024-11-16 11:29 | disposition home or self-care (01) ==
LOC: HO.LAB 11:28
PROVIDERS: PCP Registered Nurse; Visit Provider Nurse Practitioner Family
DX: R74.01 Elevation of levels of liver transaminase levels (principal); R10.9 Unspecified abdominal pain; R19.7 Diarrhea, unspecified; E55.9 Vitamin D deficiency, unspecified
CPT/HCPCS: 36415; 80076; 82306; 82607; 82746; 83690

== ENCOUNTER 2024-12-17 07:52 | Outpatient (REF) | payer OTHER, SELFPAY ==
--- NOTE | ~2024-12-17 | FL_ITS ---
EXAMINATION: XR UPPER GI SERIES WITH BARIUM SWALLOW CLINICAL INFORMATION: Gastroesophageal reflux disease without esophagitis COMPARISON: None available. TECHNIQUE: Upright barium swallow was performed following oral administration of saltine crackers coated with barium paste. Subsequently thick barium with effervescent granules is administered from the oral cavity through the pharynx, esophagus into stomach without any evidence of obstruction, narrowing or stricture. FINDINGS: Oral administration of saltine cracker coated with barium paste there is normal propagation bolus from the oral cavity through the pharynx, esophagus into stomach without any evidence of obstruction, narrowing or stricture On oral administration of thick barium and effervescent granules and upright view there is normal propagation bolus from the oral cavity through the pharynx, esophagus into stomach without any evidence of obstruction, narrowing or stricture. No intraluminal filling defect or extrinsic compression seen. There is mild gastroesophageal reflux without hiatal hernia. There are increased gastric secretions visualized. On placing supine and prone lying the course, caliber and peristalsis in the stomach, duodenal bulb and this CT is normal. The mucosal pattern of the stomach, duodenum bulb and duodenal sweep is normal. FLUOROSCOPY TIME: 2 minutes and 6 seconds DOSE AREA PRODUCT: 2166 uGy-m2 (microgray-meter squared) FL/FL upper GI w air w Ba Swallow IMPRESSION: Mild gastroesophageal reflux with increased gastric secretions. No hiatal hernia. The barium swallow appears unremarkable. Electronically signed by: Kodi Tobin MD 12/17/2024 09:44 AM EDT
--- OUTSIDE RECORDS SUMMARY | 2024-12-17 07:54 | XMS_ITS | Clinical Summary ---
Author Organization [employer] Address [address] [facility] [address] [place] [address] Care Team Providers Care Paralegal Assistant Name Role Phone Madie Evans CLINICAL STUDY MANAGER Primary Care Provider [phone] Allergies No known active allergies Medications * This document contains information received from the source organization and may not represent a complete record from that organization. sodium chloride ([place]) 0.65 % nasal spray Administer 2 sprays [...] as directed 30 tablet 1 5 Active benzoyl peroxide (PanOxyl Foaming Wash) 10 % external washIndications:F olliculitis Apply topically 2 times daily. 227 g 5 06/04/19 26 Active traZODone (Desyrel) 100 MG tabletIndications :Depressive disorder TAKE 1 TABLET BY MOUTH AT BEDTIME NEEDED FOR SLEEP 30 tablet 5 Active Active Problems Problem Noted Date Diagnosed [...] DEPARTMENT Provider, Generic External Data 11/12/2024 Refill [facility] [address] [place] [phone] [place], CLINICAL STUDY MANAGER Depressive disorder from Last 3 Months Immunizations [...] Procedure Name Priority Date/Time Associated Diagnosis Comments VITAMIN D 25-OH (D2 AND D3) Routine 11/16/2024 11:41 AM EDT VITAMIN B12/FOLATE, SERUM PANEL Routine 11/16/2024 11:41 AM EDT LIPASE Routine 11/16/2024 11:41 AM EDT HEPATIC [...] Recently Relevant to Health Maintenance Results * VITAMIN D 25-OH (D2 AND D3) (11/16/2024 11:41 AM EDT) Vitamin D, 25-OH, D2 <4 ng/mL [facility] Comment:This test was develo ped and its analytical performancecharacteristics have been determined by [employer] [place], [place]. It hasnot been cleared or approved by the U.S. Food and DrugAdministration. This assay has been validated pursuantto the CLIA regulations and is used for clinicalpurposes.THIS TEST WAS PERFORMED AT:[employer] [place] [phone] STOKES MD,PHD Vitamin D, 25-OH, D3 36 ng/mL [facility] Comment:This test was develo ped and its analytical performancecharacteristics have been determined by [employer] [place], [place]. It hasnot been cleared or approved by the U.S. Food and DrugAdministration. This assay has been validated pursuantto the CLIA regulations and is used for clinicalpurposes. Vitamin D, 25-OH, Total 36 30 - 100 ng/mL [facility] Comment:Vitamin D, 25-Hydrox y reports concentrations of twocommon forms, 25-OHD2 and 25-OHD3. 25-OHD3 indicatesboth endogenous production and supplementation.25-OHD2 is an indicator of exogenous sources such asdiet or supplementation. Therapy is based onmeasurement of Total 25-OHD, with levels <20 ng/mLindicative of Vitamin D deficiency, while levelsbetween 20 ng/mL and 30 ng/mL suggest insufficiency.Optimal levels are > or = 30 ng/mL.For additional information, please refer tohttp://education.[employer]/faq/BJL432(This link is being provided for informational/educational purposes only.) 11/16/2024 11:4 1 AM EDT 11/16/2024 11:41 AM EDT us Generic External Data Provider LAB BLOOD ORDERAB LES Final Result [facility] [address] [place] [phone] * Vitamin B12 (Cobalamin) and Folate Panel, Serum (11/16/2024 11:41 AM EDT) Vitamin B12 373 200 - 900 pg/mL [facility] Comment:NORMAL 200-900 PG/ML INDETERMINATE 160-199 PG/ML DEFICIENT < 160 PG/ML Folate 9.4 > or = 4.0 ng/mL [facility] Comment:Reference Values:> o r = 4.0 ng/mL< 4.0 ng/mL suggests folate deficiency Methotrexate, aminopterin and folinic acid(leucovorin) are chemotherapeutic agents whose molecularstructures are similar to folate; therefore, the Architectfolate assay cannot be used for patients using these drugs. 11/16/2024 11:4 1 AM EDT 11/16/2024 11:41 AM EDT us Generic External Data Provider LAB BLOOD ORDERAB LES Final Result Performing Organization Address City/[facility]/ZIP Co de Phone Number [facility] [address] [place] [phone] * Lipase (11/16/2024 11:41 AM EDT) Lipase 32 8 - 78 U/L [facility] 11/16/2024 11:4 1 AM EDT 11/16/2024 11:41 AM EDT us Generic External Data Provider LAB BLOOD ORDERAB LES Final Result Performing Organization Address [facility] de Phone Number [facility] [address] [place] [phone] * (ABNORMAL) Hepatic Function Panel (11/16/2024 11:41 AM EDT) Bilirubin, Total 0.6 0.0 - 1.0 mg/dL [facility] Bilirubin, Direct 0.2 0.0 - 0.5 mg/dL [facility] Aspartate Amino Transferase 41(H) 5 - 37 U/L [facility] Alanine Aminotransferase 75(H) 0 - 40 U/L [facility] Total Protein 6.9 6.5 - 8.0 g/dL [facility] Albumin Level 4.4 3.5 - 5.0 g/dL [facility] Alkaline Phosphatase 103 39 - 117 U/L [facility] 11/16/2024 11:4 1 AM EDT 11/16/2024 11:41 AM EDT Generic External Data Provider LAB BLOOD ORDERAB LES Final Result Performing Organization Address [facility] Co de Phone Number [facility] [address] [place] [phone] * (ABNORMAL) Lipid Panel, Standard (01/21/2024 10:38 AM EDT) Triglycerides 160(H) <150 mg/dL [facility] Comment:Desirable Triglyceri de: less than 150 mg/dLBorderline High Triglyceride 150-199 mg/dLHigh Triglyceride: 200-499 mg/dLVery High Triglyceride: greater than or equal to 5OO mg/dL Cholesterol 172 <200 mg/dL [facility] Comment:Desirable Cholestero l: less than 200 mg/dLBorderline High Cholesterol: 200-239 mg/dLHigh Cholesterol: greater than 239 mg/dL LDL Cholesterol Calculated 89 <100 mg/dL [facility] Comment:Desirable LDL: less than 100 mg/dLNear Optimal/Above Optimal LDL: 110- 129 mg/dLBorderline High LDL: 130-159 mg/dLHigh LDL: 160-189 mg/dLVery High LDL: greater than or equal to 190 mg/dL HDL Cholesterol 51 >40 mg/dL [facility] Comment:Desirable HDL: great er than 40 mg/dL Note: This HDL assay may give artificially low results in patients with liver disease. Blood Venous blood specimen / Unknown 01/21/2024 10:38 AM EDT 01/21/2024 1:00 PM EDT [facility] CLINICAL STUDY MANAGER LAB BLOOD ORDERABLES Final Re sult [facility] [address] [place] [phone] * Hepatitis C Antibody with Reflex to HCV, RNA, Quantitative, Real-Time PCR (01/21/2024 10:35 AM EDT) Hepatitis C Antibody Nonreactive Nonreactive [facility] Comment:Antibodies to HCV no t detected; does not exclude early acuteHCV infection. Blood Venous blood specimen / Unknown 01/21/2024 10:35 AM EDT 01/21/2024 1:00 PM EDT [facility] LAB BLOOD ORDERABLES Final Re sult Performing Organization Address [facility] Co de Phone Number [facility] [address] [place] [phone] * HIV-1/2 Antigen and Antibodies, Fourth Generation, with Reflexes (01/21/2024 10:35 AM EDT) HIV AB/AG Nonreactive Nonreactive [facility] Comment:HIV-1 p24 Ag and/or HIV-1/HIV-2 Ab not detected.A test result that is nonreactive does not exclude thepossibility of exposure to or infection with HIV-1 and/orHIV-2. Nonreactive results in this assay for individualswith prior exposure to HIV-1 and/or HIV-2 may be due toantigen and antibody levels that are below the limit ofdetection of this assay.The [employer] HIV Ag/Ab Combo assay result andsupplemental assay results should be interpreted inconjunction with the patient's clinical presentation,history and other laboratory results. If the results areinconsistent with clinical evidence, additional testing issuggested to confirm the result. Blood Venous blood specimen / Unknown 01/21/2024 10:35 AM EDT 01/21/2024 1:00 PM EDT [facility] LAB BLOOD ORDERABLES Final Re sult Performing Organization Address [facility]/ZIP Co de Phone Number [facility] [address] [place] [phone] from Last 3 Months or Most Recently Relevant to Health Maintenance Insurance [facility] Care Teams Paralegal Assistant Relationship Specialty Start Date End Date Madie Evans FNP [address] [place] [phone] PCP - General Family Medicine 12/30/21
--- OUTSIDE RECORDS SUMMARY | 2024-12-17 07:54 | XMS_ITS | Clinical Summary ---
Author Organization [facility] Address [address] [facility] [address] [place] [phone] Phone Care Team Providers Care High [employer] Computer Science Teacher Name Role Phone Pcp, Unknown Primary Care Provider Unavailabl e Allergies No known active allergies Social History Tobacco Use Types Packs/Day Years Used Date Smoking Tobacco: Never Assessed Education Answer Date Recorded Are you interested in more education? Not on su e 08/31/2022 Are you concerned about learning? Not on file 08/31/2022 No 08/31/2022 No 08/31/2022 Digital Access Answer Date Recorded No 10/01/2022 No 10/01/2022 Reliable internet access at home? Not on file 10/01/2022 Device with a working camera? Not on file Intimate Partner Violence Answer Date R ecorded Are you denied basic needs s uch as food, clothing, or medical care? No 06/09/2022 In the past 12 months have y ou been in a relationship with a person who hurts, threatens, or tries to control you? No 06/09/2022 Are you denied basic needs s uch as food, clothing, or medical care? No 06/09/2022 In the past 12 months have y ou been in a relationship with a person who hurts, threatens, or tries to control you? No 06/09/2022 Sex and Gender Information Value Date Recorded Sex Assigned at Not on file Legal Sex Male 9:46 PM EST Gender Identity Not on file Sexual Orientation Not on file Last Filed Vital Signs Vital Sign Reading Time Taken Comments Blood Pressure 120/89 06/09/2022 10:01 PM EST Pulse 96 06/09/2022 9:50 PM EST Temperature 36.8 C (98.3 F) 06/09/2022 10:49 PM EST Respiratory Rate 16 06/09/2022 10:01 PM EST Oxygen Saturation 99% 06/09/2022 10:01 PM EST Inhaled Oxygen Concentration - - Weight - - Height - - Body Mass Index - - Plan of Treatment Health Maintenance Due Date Last Done Comments LIPID PANEL 1981 DEPRESSION SCREENING 1993 SMOKING Hx and SMOKELESS TOBACCO SCREENING 1994 HEPATITIS C SCREENING 1999 HIV ONE-TIME SCREENING (18-65 YEARS) 1999 COVID-19 VACCINE (2023- season) 2024 02/06/2022, 04/06/2021, 10/03/2020, Additional history exists Adult Td,Tdap Booster 12/02/2029 12/03/2019, 013 PNEUMOCOCCAL VACCINES (0-49 years) Aged Out 02/17/2018 No longer eligible based on patient's age to complete this topic HEPATITIS A VACCINES Aged Out 06/19/2021, 12/16/19 21 No longer eligible based on patient's age to complete this topic HIB VACCINES Aged Out No longer eligi ble based on patient's age to complete this topic MENINGOCOCCAL VACCINES (ACWY) Aged Out No longer eligible based on patient's age to complete this topic MENINGOCOCCAL VACCINES (B) Aged Out N o longer eligible based on patient's age to complete this topic Medical Devices Not on file Insurance [facility] C3 ACO C3 ACO C3 ACO C3 ACO [facility] [place] [id number] Care Teams High [employer] Computer Science Teacher Relationship Specialty Start Date End Date Pcp, Unknown PCP - General 06/09/22 Additional Source Comments The information contained in this document represents components of the legal health record. It is not the complete legal health record.[facility]
== END 2024-12-17 07:53 | disposition home or self-care (01) ==
LOC: HO.XRAY 07:52
PROVIDERS: PCP Registered Nurse; Visit Provider Nurse Practitioner Family
DX: K21.9 Gastro-esophageal reflux disease without esophagitis (principal)
CPT/HCPCS: 74246

== ENCOUNTER → 2024-12-17 07:53 | Outpatient (BNV) | payer OTHER, SELFPAY | PROVIDERS: PCP Registered Nurse; Visit Provider Radiology Diagnostic Radiology | DX: K21.9 Gastro-esophageal reflux disease without esophagitis (principal) | CPT/HCPCS: 74246 ==

== ENCOUNTER 2024-12-30 08:35 | Outpatient (REF) | payer OTHER, SELFPAY ==
--- NOTE | ~2024-12-30 | US_ITS ---
EXAMINATION: US COMPLETE ABDOMEN WITH LIVER ELASTOGRAPHY CLINICAL INFORMATION: Abnormal blood chemistry. COMPARISON: Abdomen US 03/02/2024, 11/04/2016. No prior elastography. TECHNIQUE: Real-time imaging of the abdominal viscera. Noninvasive ultrasound liver fibrosis assessment is performed using Emily ElastPQ point quantification shear wave elastography (pSWE) with a C5-2 MHz transducer. Multiple elastography samples are obtained. FINDINGS: PANCREAS: The visualized pancreatic head and body are normal in appearance. The remainder of the pancreas is obscured from visualization by the overlying bowel gas. ABDOMINAL AORTA: No aortic aneurysm is seen. INFERIOR VENA CAVA: Visualized portions are normal. LIVER: The liver demonstrates normal size, contour and mildly diffusely increased echogenicity. No suspicious focal lesion or intrahepatic biliary duct dilatation. The right lobe measures 14.2 cm in length. The left lobe measures 11.3 cm in length. Portal flow is towards the liver (hepatopetal). Shear wave liver elastography median stiffness is 1.43 m/s (reference: normal median stiffness is 1.3 m/s or less). IQR/median stiffness to assess sampling precision is 0.22 (reference: good quality data set is IQR/median stiffness of 0.15 or less). GALLBLADDER: The gallbladder is physiologically distended without evidence of stones, sludge, polyps, wall thickening or pericholecystic fluid. COMMON BILE DUCT: Normal in caliber measuring 0.3 cm in diameter. RIGHT KIDNEY: No hydronephrosis. No renal calculi or focal parenchymal lesions. The kidney measures 10.3 cm in maximum dimension. LEFT KIDNEY: No hydronephrosis. No renal calculi or focal parenchymal lesions. The kidney measures 10.8 cm in maximum dimension. SPLEEN: Unremarkable. The spleen measures 11.8 cm in maximum dimension. FREE FLUID: None seen. US/US abdomen comp w elastography IMPRESSION: 1. Mildly diffusely increased hepatic echogenicity suggestive of fatty infiltration. No suspicious focal hepatic lesion. 2. Liver elastography: Although measurements appear to rule out compensated advanced chronic liver disease, there is statistical variability of the sampling which decreases accuracy. 3. No biliary dilatation. Normal gallbladder. 4. Remainder of the examination is normal. REFERENCE: Society of Radiologists in Ultrasound Liver Stiffness Thresholds (2020): LIVER STIFFNESS THRESHOLDS: *Liver Stiffness equal or less than 1.3 m/s: High probability of being normal. *Liver Stiffness less than 1.7 m/s: In the absence of other known clinical signs, rules out compensated advanced chronic liver disease. *Liver Stiffness 1.7-2.1 m/s: Suggestive of compensated advanced chronic liver disease but need further test for confirmation. *Liver Stiffness over 2.1 m/s: Rules in compensated advanced chronic liver disease. *Liver Stiffness over 2.4 m/s: Suggestive of clinically significant portal hypertension. QUALITY OF DATA SET: *IQR/Median value equal or less than 0.15 implies a quality data set. *IQR/Median value over 0.15 implies a poor quality data set. SIGNIFICANT CHANGE FROM PRIOR EXAM: Significant change if liver stiffness measurement is 10% or greater from prior exam. OTHER CONSIDERATIONS: The stage of liver fibrosis may be overestimated in the setting of acute hepatitis, liver inflammation, elevated liver function tests, hepatic vascular congestion, obstructive cholestasis, non-fasting state, and infiltrative diseases such as amyloidosis and lymphoma. In some patients with NAFLD, the liver stiffness thresholds for compensated advanced chronic liver disease may be lower. In causes other than viral hepatitis and NAFLD, liver stiffness thresholds are not well established. Electronically signed by: Du Garcia MD 12/30/2024 09:31 AM EDT
--- OUTSIDE RECORDS SUMMARY | 2024-12-30 09:13 | XMS_ITS | Clinical Summary ---
Author Organization [facility] Address [address] [facility] [address] [place] [phone] Phone Care Team Providers Care Glass Bender Name Role Phone Pcp, Unknown Primary Care [...] topic Medical Devices Not on file Insurance [facility] C3 ACO C3 ACO C3 ACO C3 ACO [facility] [place] [id number] Care Teams Glass Bender Relationship Specialty Start Date End Date Pcp, Unknown PCP - General 06/09/22 Additional Source Comments The information contained in this document represents components of the legal health record. It is not the complete legal health record.[facility]
--- OUTSIDE RECORDS SUMMARY | 2024-12-30 09:13 | XMS_ITS | Encounter Summary ---
Author Organization [employer] Address [address] [facility] [address] [place] [address] Care Team Providers Care Mold Release Worker Name Role Phone Cristina Madie OSORIO Primary Care Provider Encounter Details Date Type Department Care Team (Latest Contact Info) Description 04/20/2021 Abstract [facility] CONVERSIONS Dental, Provider, DDS Social History Tobacco Use Types Packs/Day Years Used Date Smoking Tobacco: Never Assessed Sex and Gender Information Value Date Recorded Sex Assigned at Male 03/04/2022 10:38 AM EDT Legal Sex Male 10:38 AM EDT Gender Identity Male 03/04/2022 10:38 AM EDT Sexual Orientation Straight 03/04/2022 10 :38 AM EDT documented as of this encounter Plan of Treatment Not on file documented as of this encounter Visit Diagnoses Not on filedocumented in this encounter Care Teams Mold Release Worker Relationship Specialty Start Date End Date Madie Evans FNP [address] [place] [phone] PCP - General Family Medicine 12/30/21 documented as of this encounter
--- OUTSIDE RECORDS SUMMARY | 2024-12-30 09:13 | XMS_ITS | Clinical Summary ---
Author Organization [facility] Address [address] [facility] [address] [place] [address] Care Team Providers Care Table Games Supervisor Name Role Phone Madie Evans QUALITY PROCESS ENGINEER Primary Care Provider [phone] Allergies No known active allergies Medications * This document contains information received from the source organization and may not represent a complete record from that organization. sodium chloride ([place]) 0.65 % nasal spray Administer 2 sprays [...] organization. Date Type Department Care Team Description 12/17/2024 Orders Only [facility] External Provider, [facility] 11/16/2024 Orders Only GENERIC EXTERNAL DATA DEPARTMENT Provider, Generic External Data 11/12/2024 Refill [facility] [address] [place] [address] [place], [place], [facility] Depressive disorder from Last 3 Months Immunizations [...] Procedure Name Priority Date/Time Associated Diagnosis Comments FL UPPER GI W AIR W BARIUM SWALLOW Routine 12/17/2024 8:00 AM EDT VITAMIN D 25-OH (D2 AND D3) Routine [...] Recently Relevant to Health Maintenance Results * FL Upper GI w/air w/Barium Swallow (12/17/2024 8:00 AM EDT) Anatomical Region Laterality Modality Body Radiographic Anika ging 12/17/2024 8:00 AM EDT Narrative 12/17/2024 9:47 AM EDT [address] [address] Fluoroscopy Report Signed Patient: Denis Baker MR#: [id number] : 1980 Acct:[id number] Age/Sex: 44 / M ADM Date: 12/17/24 Loc: HO.XRAY Attending Dr: Jeanette Mc [facility]- Ordering Physician: Jeanette Mc [facility]- Date of Service: 12/17/24 Procedure(s): FL upper GI w air w Ba Swallow Accession Number(s): [id number] cc: Jeanette Mc [facility]; [facility] EXAMINATION: XR UPPER GI SERIES WITH BARIUM SWALLOW CLINICAL INFORMATION: Gastroesophageal reflux disease without esophagitis COMPARISON: None available. TECHNIQUE: Upright barium swallow was performed following oral administration of saltine crackers coated with barium paste. Subsequently thick barium with effervescent granules is administered from the oral cavity through the pharynx, esophagus into stomach without any evidence of obstruction, narrowing or stricture. FINDINGS: Oral administration of saltine cracker coated with barium paste there is normal propagation bolus from the oral cavity through the pharynx, esophagus into stomach without any evidence of obstruction, narrowing or stricture On oral administration of thick barium and effervescent granules and upright view there is normal propagation bolus from the oral cavity through the pharynx, esophagus into stomach without any evidence of obstruction, narrowing or stricture. No intraluminal filling defect or extrinsic compression seen. There is mild gastroesophageal reflux without hiatal hernia. There are increased gastric secretions visualized. On placing supine and prone lying the course, caliber and peristalsis in the stomach, duodenal bulb and this CT is normal. The mucosal pattern of the stomach, duodenum bulb and duodenal sweep is normal. FLUOROSCOPY TIME: 2 minutes and 6 seconds DOSE AREA PRODUCT: 2166 uGy-m2 (microgray-meter squared) FL/FL upper GI w air w Ba Swallow IMPRESSION: Mild gastroesophageal reflux with increased gastric secretions. No hiatal hernia. The barium swallow appears unremarkable. Electronically signed by: Kodi Tobin MD 12/17/2024 09:44 AM EDT Dictated By: Kodi Tobin MD Signed By: <Electronically signed by Kodi Tobin MD in OV> 12/17/24943 DD/ 0800 TD/TT: 12/17/24 0815 Marketing Automation Specialist: [facility] [place] Procedure Note Donotuseinterpreter, Image - 12/17/[address] [place] [address] Fluoroscopy Report Signed Patient: Denis BakerMR#: [id number] : 1980Acct:[id number] Age/Sex: 44 / MADM Date: 12/17/24 Loc: HO.XRAY Attending Dr: Jeanette Mc [facility]- Ordering Physician: Jeanette Mc [facility] Date of Service: 12/17/24 Procedure(s): FL upper GI w air w Ba Swallow Accession Number(s): [id number] cc: Jeanette Mc [facility]; [facility] EXAMINATION: XR UPPER GI SERIES WITH BARIUM SWALLOW CLINICAL INFORMATION: Gastroesophageal reflux disease without esophagitis COMPARISON: None available. TECHNIQUE: Upright barium swallow was performed following oral administration of saltine crackers coated with barium paste. Subsequently thick barium with effervescent granules is administered from the oral cavity through the pharynx, esophagus into stomach without any evidence of obstruction, narrowing or stricture. FINDINGS: Oral administration of saltine cracker coated with barium paste there is normal propagation bolus from the oral cavity through the pharynx, esophagus into stomach without any evidence of obstruction, narrowing or stricture On oral administration of thick barium and effervescent granules and upright view there is normal propagation bolus from the oral cavity through the pharynx, esophagus into stomach without any evidence of obstruction, narrowing or stricture. No intraluminal filling defect or extrinsic compression seen. There is mild gastroesophageal reflux without hiatal hernia. There are increased gastric secretions visualized. On placing supine and prone lying the course, caliber and peristalsis in the stomach, duodenal bulb and this CT is normal. The mucosal pattern of the stomach, duodenum bulb and duodenal sweep is normal. FLUOROSCOPY TIME: 2 minutes and 6 seconds DOSE AREA PRODUCT: 2166 uGy-m2 (microgray-meter squared) FL/FL upper GI w air w Ba Swallow IMPRESSION: Mild gastroesophageal reflux with increased gastric secretions. No hiatal hernia. The barium swallow appears unremarkable. Electronically signed by: Kodi Tobin MD 12/17/2024 09:44 AM EDT Dictated By: Kodi Tobin MD Signed By: <Electronically signed by Kodi Tobin MD in OV> 12/17/2444 DD/ 08 TD/TT: 12/17/24 0815 Marketing Automation Specialist: [facility] External Provider IMG FLU OROSCOPY PROCEDURES Final Result * VITAMIN D 25-OH (D2 AND D3) (11/16/2024 11:41 AM EDT) Vitamin D, 25-OH, D2 <4 ng/mL [facility] Comment:This test was develo ped and its analytical performancecharacteristics have been determined by [employer] [place], [place]. It hasnot been cleared or approved by the U.S. Food and DrugAdministration. This assay has been validated pursuantto the CLIA regulations and is used for clinicalpurposes.THIS TEST WAS PERFORMED AT:[facility] [id number] [place] [address]JTIMBCHFAREED STOKES MD,PHD Vitamin D, 25-OH, D3 36 ng/mL [facility] Comment:This test was develo ped and its analytical performancecharacteristics have been determined by [employer] [place], [place]. It hasnot been cleared or approved by the U.S. Food and DrugAdministration. This assay has been validated pursuantto the CLIA regulations and is used for clinicalpurposes. Vitamin D, 25-OH, Total 36 30 - 100 ng/mL [facility] Comment:Vitamin D, 25-Hydrox y reports concentrations [...] = 30 ng/mL.For additional information, please refer tohttp://education.[email or web address]/faq/ILZ278(This link is being provided for informational/educational purposes only.) 11/16/2024 11:4 1 AM EDT 11/16/2024 11:41 AM EDT us Generic External Data Provider LAB BLOOD ORDERAB LES Final Result Performing Organization Address City/[facility]/ZIP Co de Phone Number [facility] [address] [place] [phone] * Vitamin B12 (Cobalamin) and Folate Panel, Serum (11/16/2024 11:41 AM EDT) Vitamin B12 373 200 - 900 pg/mL [facility] Comment:NORMAL 200-900 PG/ML INDETERMINATE 160-199 PG/ML DEFICIENT < 160 PG/ML Folate 9.4 > or = 4.0 ng/mL [facility] Comment:Reference Values:> o r = 4.0 ng/mL< 4.0 ng/mL suggests folate deficiency Methotrexate, aminopterin and folinic acid(leucovorin) are chemotherapeutic agents whose molecularstructures are similar to folate; therefore, the Architectfolate assay cannot be used for patients using these drugs. 11/16/2024 11:4 1 AM EDT 11/16/2024 11:41 AM EDT us Generic External Data Provider LAB BLOOD ORDERAB LES Final Result Performing Organization Address [facility] Co de Phone Number [facility] [address] [place] [phone] * Lipase (11/16/2024 11:41 AM EDT) Lipase 32 8 - 78 U/L [facility] 11/16/2024 11:4 1 AM EDT 11/16/2024 11:41 AM EDT us Generic External Data Provider LAB BLOOD ORDERAB LES Final Result Performing Organization Address [facility]/ZIP Co de Phone Number [facility] [address] [place] [phone] * (ABNORMAL) Hepatic Function Panel (11/16/2024 11:41 AM EDT) Bilirubin, Total 0.6 0.0 - 1.0 mg/dL [facility] Bilirubin, Direct 0.2 0.0 - 0.5 mg/dL [facility] Aspartate Amino Transferase 41(H) 5 - 37 U/L [facility] Alanine Aminotransferase 75(H) 0 - 40 U/L [facility] Total Protein 6.9 6.5 - 8.0 g/dL [facility] Albumin Level 4.4 3.5 - 5.0 g/dL [facility] Alkaline Phosphatase 103 39 - 117 U/L [facility] 11/16/2024 11:4 1 AM EDT 11/16/2024 11:41 AM EDT us Generic External Data Provider LAB BLOOD ORDERAB LES Final Result Performing Organization Address City/State/[facility] Co de Phone Number [facility] [address] [place] [phone] * (ABNORMAL) Lipid Panel, Standard (01/21/2024 10:38 AM EDT) Triglycerides 160(H) <150 mg/dL [facility] Comment:Desirable Triglyceri de: less than 150 mg/dLBorderline High Triglyceride 150-199 mg/dLHigh Triglyceride: 200-499 mg/dLVery High Triglyceride: greater than or equal to 5OO mg/dL Cholesterol 172 <200 mg/dL [facility] Comment:Desirable Cholestero l: less than 200 mg/dLBorderline High Cholesterol: 200-239 mg/dLHigh Cholesterol: greater than 239 mg/dL LDL Cholesterol Calculated 89 <100 mg/dL [facility] Comment:Desirable LDL: less than 100 mg/dLNear Optimal/Above Optimal LDL: 110- 129 mg/dLBorderline High LDL: 130-159 mg/dLHigh LDL: 160-189 mg/dLVery High LDL: greater than or equal to 190 mg/dL HDL Cholesterol 51 >40 mg/dL [facility] Comment:Desirable HDL: great er than 40 mg/dL Note: This HDL assay may give artificially low results in patients with liver disease. Blood Venous blood specimen / Unknown 01/21/2024 10:38 AM EDT 01/21/2024 1:00 PM EDT [facility] LAB BLOOD ORDERABLES Final Re sult Performing Organization Address [facility] Co de Phone Number [facility] [address] [place] [phone] * Hepatitis C Antibody with Reflex to HCV, RNA, Quantitative, Real-Time PCR (01/21/2024 10:35 AM EDT) Pathologist [facility] Hepatitis C Antibody Nonreactive Nonreactive [facility] Comment:Antibodies to HCV no t detected; does not exclude early acuteHCV infection. Blood Venous blood specimen / Unknown 01/21/2024 10:35 AM EDT 01/21/2024 1:00 PM EDT [facility] LAB BLOOD ORDERABLES Final Re sult Performing Organization Address [facility] Phone Number [facility] [address] [place] [phone] * HIV-1/2 Antigen and Antibodies, Fourth Generation, with Reflexes (01/21/2024 10:35 AM EDT) HIV AB/AG Nonreactive Nonreactive [facility] Comment:HIV-1 p24 Ag and/or HIV-1/HIV-2 Ab not detected.A test result that is nonreactive does not exclude thepossibility of exposure to or infection with HIV-1 and/orHIV-2. Nonreactive results in this assay for individualswith prior exposure to HIV-1 and/or HIV-2 may be due toantigen and antibody levels that are below the limit ofdetection of this assay.The [email or web address] HIV Ag/Ab Combo assay result andsupplemental assay results should be interpreted inconjunction with the patient's clinical presentation,history and other laboratory results. If the results areinconsistent with clinical evidence, additional testing issuggested to confirm the result. Blood Venous blood specimen / Unknown 01/21/2024 10:35 AM EDT 01/21/2024 1:00 PM EDT [facility] LAB BLOOD ORDERABLES Final Re sult [facility] [address] [place] [phone] from Last 3 Months or Most Recently Relevant to Health Maintenance Insurance [facility] Care Teams Table Games Supervisor Relationship Specialty Start Date End Date [place] F[place] [address] [place] [phone] PCP - General Family Medicine 12/30/21
--- OUTSIDE RECORDS SUMMARY | 2024-12-30 09:13 | XMS_ITS | Encounter Summary ---
Author Organization [facility] Address [address] [place] [phone] Phone Care Team Providers Care Admitting Supervisor Name Role Phone Pcp, Unknown Primary Care Provider Unavailabl e Encounter Details Date Type Department Care Team (Late st Contact Info) Description 06/09/2022 Procedure [facility], Ct Scan - [address] [address] Social History Tobacco Use Types Packs/Day Years Used Date Smoking Tobacco: Never Assessed Intimate Partner Violence Answer Date R ecorded [...] on file Sexual Orientation Not on file documented as of this encounter Functional Status * Calculated C-SSRS Risk Score (Lifetime/Recent) Answer Date of Assessment Author No Risk Indicated 06/09/2022 10:05 PM Landon Dodd RN * [place] Suicide Severity Rating Scale (Screener/Recent Self-Report) Question Answer Date of Assessment Author 1. Wish to be (Past 1 Month) No 06/09/2022 10:05 PM Iwona Pack RN 2. Non-Specific Active Suici nataliya Thoughts (Past 1 Month) No 06/09/2022 10:05 PM Veena Pack, THANIA 6. Suicidal Behavior (Lifetime) No 10:05 PM Landon Pack RN documented as of this encounter Plan of Treatment Not on file documented as of this encounter Visit Diagnoses Not on filedocumented in this encounter Care Teams Admitting Supervisor Relationship Specialty Start Date End Date Pcp, Unknown PCP - General 06/09/22 documented as of this encounter Additional Source Comments The information contained in this document represents components of the legal health record. It is not the complete legal health record.[facility]
== END 2024-12-30 08:36 | disposition home or self-care (01) ==
LOC: HO.US 08:35
PROVIDERS: PCP Registered Nurse; Visit Provider Nurse Practitioner Family
DX: R79.89 Other specified abnormal findings of blood chemistry (principal)
CPT/HCPCS: 76700; 76981

== ENCOUNTER → 2024-12-30 08:37 | Outpatient (BNV) | payer OTHER, SELFPAY | PROVIDERS: PCP Registered Nurse; Visit Provider Radiology Diagnostic Radiology | DX: K76.0 Fatty (change of) liver, not elsewhere classified (principal) | CPT/HCPCS: 76700 ==

== ENCOUNTER 2025-01-31 10:11 | Outpatient (REF) | payer OTHER, SELFPAY ==
--- OUTSIDE RECORDS SUMMARY | 2025-01-29 10:20 | XMS_ITS | Encounter Summary ---
Author Organization [employer] Address [address] [facility] 7t [place] [address] Care Team Providers Care Trout Farmer Name Role Phone Madie Evans BURNER HAND Primary Care Provider [phone] Reason for Visit * Reason Comments Nasal Congestion Cough Encounter Details Date Type Department Care Team ([facility] st Contact Info) Description 01/29/2025 10:20 AM EDT Office Visit [facility] [address] [place] [address] Tiff Roberts MD [address] [place] [phone] Bronchitis (Primary Dx); Nasal congestion; Cough in [...] old male who presents for [facility]/[employer] like sxs. 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 Tobacco Use: 1PPD Alcohol Use: [...] Indeterminate Final QC Media Lot # 01/29/2025 [id number] Final Lot# Expiration Date 01/29/2025 12,042,026 Final Influenza A 01/29/2025 Negative Negative, Indeterminate Final QC Media Lot # 01/29/2025 [id number] Final Lot# Expiration Date 01/29/2025 12,042,026 Final Coronavirus Antigen PCR 01/29/2025 Negative Negative, Indeterminate, None Detected, Invalid, Specimen unsatisfactory for evaluation, Weakly Positive, 2+ Final QC Media Lot # 01/29/2025 [id number] Final Lot# Expiration Date 01/29/2025 10,514,026 Final Problem List Items Addressed This Visit [...] as directed 30 tablet 1 sodium chloride ([place]) 0.65 % nasal spray Administer 2 sprays [...] documented in this encounter Plan of Treatment Scheduled Orders Name Type Priority Associated Diagnoses Orde r Schedule XR Chest 2 Views Imaging Routine Bronchitis Ordered: 01/29/2025 documented as of this encounter Procedures Procedure Name Priority Date/Time Associated Diagnosis Comments POCT INFLUENZA A (ID NOW RAPID MOLECULAR) Routine 01/29/2025 10:46 AM EDT Nasal congestion Cough in adult POCT COVID-19 AG MARTINEZ ID NOW Routine 01/29/2025 10:46 AM EDT Nasal congestion Cough in adult POCT INFLUENZA B (ID NOW RAPID MOLECULAR) Routine 01/29/2025 10:45 AM EDT Nasal congestion Cough in adult documented in this encounter Results * POCT Rapid Covid-19 MARTINEZ ID NOW (01/29/2025 10:46 AM EDT) Coronavirus Antigen PCR Negative Negative, Indeterminate, None Detected, Invalid, Specimen unsatisfactory for evaluation, Weakly Positive, 2+ QC Media Lot # [id number] Lot# Expiration Date , Swab 01/29/2025 10:4 6 AM EDT us Tiff Roberts MD POINT OF CARE TEST ENTER /EDIT ORDERABLES Final Result * POCT Rapid Influenza A MARTINEZ ID NOW (01/29/2025 10:46 AM EDT) Influenza A Negative Negative, Indeterminate [facility] QC Media Lot # [id number] [facility] Lot# Expiration Date , [facility] Swab 01/29/2025 10:4 6 AM EDT Tiff Roberts MD POINT OF CARE TEST ENTER /EDIT ORDERABLES Final Result Performing Organization Address City/[facility]/ZIP Co de Phone Number [facility] [address] [place] [phone] * POCT Rapid Influenza B MARTINEZ ID NOW (01/29/2025 10:45 AM EDT) Influenza B Negative Negative, Indeterminate [facility] QC Media Lot # [id number] [facility] Lot# Expiration Date , [facility] Swab 01/29/2025 10:4 5 AM EDT Tiff Roberts MD POINT OF CARE TEST ENTER /EDIT ORDERABLES Final Result Performing Organization Address [facility] Co de Phone Number [facility] [address] [place] [phone] documented in this encounter Visit Diagnoses Diagnosis Bronchitis- Primary Bronchitis, not specified as acute or chronic Nasal congestion Other diseases of nasal cavity and sinuses Cough in adult Shortness of breath documented in this encounter Additional Health Concerns Assessment Noted Time PHQ-9 Depression Total Score: 20 01/18/ 024 10:57 AM EDT documented as of this encounter Care Teams Trout Farmer Relationship Specialty Start Date End Date Madie Evans FNP [address] [place] [phone] PCP - General Family Medicine 12/30/21 documented as of this encounter
--- NOTE | ~2025-01-31 | XR_ITS ---
EXAMINATION: XR CHEST CLINICAL INFORMATION: BRONCHITIS COMPARISON: 09/24/2024. TECHNIQUE: 2 views of the chest were obtained. FINDINGS: The cardiac, hilar, and mediastinal contours are normal. The lungs are clear bilaterally. There is no pneumothorax or pleural effusion. There is no focal osseous or soft tissue abnormality. XR/XR chest 2V IMPRESSION: Normal chest. Electronically signed by: Du Garcia MD 01/31/2025 11:16 AM EDT
--- OUTSIDE RECORDS SUMMARY | 2025-01-31 11:20 | XMS_ITS | Encounter Summary ---
Author Organization [facility] Address [address] [place] [phone] Phone Care Team Providers Care Publication Director Name Role Phone Pcp, Unknown Primary Care Provider Unavailabl e Encounter Details Date Type Department Care Team (Late st Contact Info) Description 06/09/2022 Procedure Pass [facility], Ct Scan - [address] [address] Social History Tobacco Use Types Packs/Day Years [...] 06/09/2022 10:05 PM Landon Dodd RN * [place] Suicide Severity Rating Scale (Screener/Recent Self-Report) Question [...] on filedocumented in this encounter Care Teams Publication Director Relationship Specialty Start Date End Date Pcp, Unknown PCP - General 06/09/22 documented as of this encounter Additional Source Comments The information contained in this document represents components of the legal health record. It is not the complete legal health record.[facility]
--- OUTSIDE RECORDS SUMMARY | 2025-01-31 11:20 | XMS_ITS | Encounter Summary ---
Author Organization [employer] Address [address] [place] [address] [place], [place] [address] Care Team Providers Care District Superintendent Name Role Phone Madie Evans Primary Care Provider [phone] Encounter Details Date Type Department Care Team [...] on filedocumented in this encounter Care Teams District Superintendent Relationship Specialty Start Date End Date Madie Evans FNP [address] [place] [phone] PCP - General Family Medicine 12/30/21 documented as of this encounter
--- OUTSIDE RECORDS SUMMARY | 2025-01-31 11:20 | XMS_ITS | Encounter Summary ---
Author Organization [employer] Address [address] [facility] 7t [place] [address] Care Team Providers Care Product Safety Professional Name Role Phone Madie Evans ROD BUSTER HELPER Primary Care Provider [phone] Encounter Details Date Type Department Care Team (Latest Contact Info) Description 01/29/2025 Travel Social History Tobacco Use Types Packs/Day Years [...] Diagnoses Not on filedocumented in this encounter Additional Health Concerns Assessment Noted Time PHQ-9 Depression Total Score: 20 024 10:57 AM EDT documented as of this encounter Care Teams Product Safety Professional Relationship Specialty Start Date End Date Madie Evans FNP [address] [place] [phone] PCP - General Family Medicine 12/30/21 documented as of this encounter
--- OUTSIDE RECORDS SUMMARY | 2025-01-31 11:20 | XMS_ITS | Clinical Summary ---
Author Organization [facility]erged With [facility] Address [address] [facility] [address] [place] [phone] Phone Care Team Providers Care Compressed [employer] Equipment Mechanic Name Role Phone Pcp, Unknown Primary Care [...] 1999 HIV ONE-TIME SCREENING (18-65 YEARS) 1999 INFLUENZA VACCINE (#1) 2024 , 03/20/2021, 01/27/2020, Additional history exists COVID-19 VACCINE ( season) 2025 02/06/2022, 04/06/2021, 10/03/2020, Additional history exists Adult [...] topic Medical Devices Not on file Insurance [facility] [employer] [place] [id number] [facility] [facility] [employer] Care Teams Compressed [employer] Equipment Mechanic Relationship Specialty Start Date End Date Pcp, Unknown PCP - General 06/09/22 Additional Source Comments The information contained in this document represents components of the legal health record. It is not the complete legal health record.[facility]
--- OUTSIDE RECORDS SUMMARY | 2025-01-31 11:20 | XMS_ITS | Clinical Summary ---
Author Organization [employer] Address [address] [facility] [address] [place] [address] Care Team Providers Care Artificial Breast Fabricator Name Role Phone Madie Evans MANAGER BATTERY Primary Care Provider [phone] Allergies No known active allergies Medications * This document contains information received from the source organization and may not represent a complete record from that organization. sodium chloride ([place]) 0.65 % nasal spray Administer 2 sprays into affected nostril(s) every 6 (six) hours. Active cyclobenzaprine (Flexeril) 5 MG tablet Take 1 tablet by mouth every 8 (eight) hours. 04/03/20 21 Active hydrocortisone 2.5 % cream apply by topical route 2 times every day a thin layer to the affected area(s) for 2 weeks [facility] 06/19/19 22 Active Salicylic Acid 40 % pads Apply 1 patch topically every other day. 36 each 08/14/19 23 Active folic acid (Folvite) 1 MG tabletIndication s:Alcohol dependence, uncomplicated (CMS/HCC) ([facility]) Take 1 tablet (1,000 mcg) by mouth in the morning. 90 tablet 1 01/19/20 24 Active pantoprazole (Protonix) 40 MG EC tabletIndication s:Epigastric pain Take 1 tablet (40 mg) by mouth 2 times daily. Do not crush, chew, or split. 60 tablet 1 05/07/19 25 2025 Active ARIPiprazole (Abilify) 10 MG tabletIndication s:Bipolar 1 disorder (CMS/HCC) ([facility]) Take 1 tablet (10 mg) by mouth [...] FOR SLEEP 30 tablet 11/13/19 25 Active azithromycin (Zithromax) 250 MG tablet Take 2 tabs PO daily x 1d then 1 tab PO daily on D2 to D5 6 tablet 01/30/20 25 Active acetaminophen (Tylenol Extra Strength) 500 MG tablet Take 1 tablet (500 mg) by mouth every 6 (six) hours if needed for mild pain. 120 tablet 01/30/20 25 2024 Active albuterol (Ventolin HFA) 108 (90 Base) MCG/ACT inhalerIndicatio ns:Shortness of breath Inhale 2 puffs every 6 (six) hours if needed for wheezing. 18 g 01/30/20 25 Active Multiple Vitamin (multivitamin) tabletIndication s:Alcohol dependence, uncomplicated (CMS/HCC) (HCC) Take 1 tablet by mouth Once per day. 90 tablet 3 01/19/20 24 2024 Ventolin HFA 108 (90 Base) MCG/ACT inhalerIndicatio ns:Shortness of breath INHALE 2 PUFFS EVERY 6 (SIX) HOURS IF NEEDED FOR SHORTNESS OF BREATH OR WHEEZING. 18 g 3 01/21/20 24 2024 Discontinued(R eorder (will not trigger notification to Pharmacy)) Active Problems Problem Noted Date Diagnosed Date Bronchitis 01/29/2025 Assessment & Plan (01/29/2025 12:52 PM EDT): Rapid viral test are negative today. Rx [...] then as needed Advised to quit smoking PTSD (post-traumatic stress disorder) 05/07/2024 Anxiety 05/07/2024 Acute low back pain 03/23/2022 Acute pain of both knees 03/23/2022 Alcoholic fatty liver 03/23/2022 Hematoma of neck 03/23/2022 Hemorrhoids 03/23/2022 Neck pain 03/23/2022 Asthma-chronic obstructive p ulmonary disease overlap syndrome (CMS/HCC) 03/20/2021 Polysubstance abuse 12/29/2020 Scalp cyst 02/26/2018 Overview (01/22/2023): 02/19- complex scalp cyst, referred to general surgery Vitamin D deficiency 02/20/2018 Elevated amylase and lipase 02/20/2018 Overview (01/22/2023): 02/19- CT pending, referred back to gastroenterology Abnormal LFTs 05/26/2014 Sprain of thoracic region 05/26/2012 Sprain of sacroiliac ligament 05/26/2012 Tobacco use disorder 05/08/2012 Hypercholesteremia 05/08/2012 Depressive disorder 05/08/2012 Alcohol abuse 05/08/2012 Encounters Date Type Department Care Team Description 01/29/2025 10:20 AM EDT Office Visit [facility] [address] [place] [address] Tiff Roberts MD Bronchitis (Primary Dx); Nasal congestion; Cough in adult; Shortness of breath 01/29/2025 Travel 12/17/2024 Orders Only [facility] External Provider, [facility] 11/16/2024 Orders Only GENERIC EXTERNAL DATA DEPARTMENT Provider, Generic External Data 11/12/2024 Refill [facility] [address] [place] [address] Valley HeadMadie, MANAGER BATTERY Depressive disorder from Last 3 Months Immunizations [...] the past 12 months, has t he [place], oil or water [employer] threatened to shut off services in your [...] Mass Index 30.35 01/29/2025 10:30 AM EDT Plan of Treatment Health Maintenance Due Date Last Done Comments Dental Prophylaxis 1981 Dental X-Ray: Full Mouth 1981 Disability Screening 1981 Alcohol/Substance Use Screening 1993 Family Planning (PISQ) 1996 HPV Vaccines (1 - Male 3-dose series) 1996 Hepatitis B Vaccines (1 of 3 - 19+ 3-dose series) 2000 Pneumococcal Vaccine: Pediatrics (0 to 5 Years) and At-Risk Patients (6 to 49) Years (2 of 2 - PCV) 02/17/2019 02/17/2018 Dental Oral Exam 12/20/2022 06/21/2022 Dental X-Ray: Bitewings 06/22/2023 06/21/2022 Depression Monitoring 07/18/2024 01/19/2024, 024 COVID-19 Vaccine ( season) 2025 02/06/2022, 04/06/2021, 10/03/2020, Additional history exists Influenza Vaccine (#1) 2025 , 01/17/2023, 02/01/2022, Additional history exists SDOH Screening 01/18/2025 01/19/2024 Tobacco Screening 01/29/2026 01/29/2025 Lipid Panel 01/20/2029 01/21/2024, 02/05/2022 DTaP/Tdap/Td Vaccines (3 - Td or Tdap) 12/02/2029 12/03/2019, 05/08/2012 Zoster Vaccines (1 of 2) 2031 RSV Patients and Patients Aged 60 years or older (1 - 1-dose 75+ series) 2056 Hepatitis A Vaccines Completed 06/19/2021, 12/16/19 21 HIV Screening Completed 01/21/2024, 0801/2023, 02/05/2022, Additional history exists Hepatitis C Screening [...] Name Priority Date/Time Associated Diagnosis Comments POCT COVID-19 AG MARTINEZ ID NOW Routine 01/29/2025 10:46 AM EDT Nasal congestion Cough in adult POCT INFLUENZA A (ID NOW RAPID MOLECULAR) Routine 01/29/2025 10:46 AM EDT Nasal congestion Cough in adult POCT INFLUENZA B (ID NOW RAPID MOLECULAR) Routine 01/29/2025 10:45 AM EDT Nasal congestion Cough in adult US ABDOMEN COMPLETE WITH ELASTOGRAPHY Routine 12/30/2024 9:06 AM EDT FL UPPER GI W AIR W BARIUM [...] Recently Relevant to Health Maintenance Results * POCT Rapid Influenza A MARTINEZ ID NOW (01/29/2025 10:46 AM EDT) Influenza A Negative Negative, Indeterminate [facility] QC Media Lot # [id number] [facility] Lot# Expiration Date 026 [facility] Swab 01/29/2025 10:4 6 AM EDT us Tiff Roberts MD POINT OF CARE TEST ENTER /EDIT ORDERABLES Final Result [facility] [address] [place] [phone] * POCT Rapid Covid-19 MARTINEZ ID NOW (01/29/2025 10:46 AM EDT) Pathologist [facility] Coronavirus Antigen PCR Negative Negative, Indeterminate, None Detected, Invalid, Specimen unsatisfactory for evaluation, Weakly Positive, 2+ QC Media Lot # [id number] Lot# Expiration Date Swab 01/29/2025 10:4 6 AM EDT Tiff Roberts MD POINT OF CARE TEST ENTER /EDIT ORDERABLES Final Result * POCT Rapid Influenza B MARTINEZ ID NOW (01/29/2025 10:45 AM EDT) Pathologist [facility] Influenza B Negative Negative, Indeterminate [facility] QC Media Lot # [id number] [facility] Lot# Expiration Date [facility] Swab 01/29/2025 10:4 5 AM EDT Tiff Roberts MD POINT OF CARE TEST ENTER /EDIT ORDERABLES Final Result [facility] [address] [place] [phone] * US Abdomen Comp w elastography (12/30/2024 9:06 AM EDT) Anatomical Region Laterality Modality Abdomen Ultrasound 12/30/2024 9:06 AM EDT Narrative 12/30/2024 9:34 AM EDT [address] [address] Ultrasound Report Signed Patient: Denis Baker MR#: [id number] : 1980 Acct:[id number] Age/Sex: 44 / M ADM Date: 12/30/24 Loc: HO.US Attending Dr: Jeanette Mc MANAGER BATTERY- Ordering Physician: Jeanette Mc MANAGER BATTERY-BC Date of Service: 12/30/24 Procedure(s): US abdomen comp w elastography Accession Number(s): [id number] cc: JesusitaJeanette D [facility]; [facility] EXAMINATION: US COMPLETE ABDOMEN WITH LIVER ELASTOGRAPHY CLINICAL INFORMATION: Abnormal blood chemistry. COMPARISON: Abdomen US 03/02/2024, 11/04/2016. No prior elastography. TECHNIQUE: Real-time imaging of the abdominal viscera. Noninvasive ultrasound liver fibrosis assessment is performed using Emily ElastPQ point quantification shear wave elastography (pSWE) with a C5-2 MHz transducer. Multiple elastography samples are obtained. FINDINGS: PANCREAS: The visualized pancreatic head and body are normal in appearance. The remainder of the pancreas is obscured from visualization by the overlying bowel gas. ABDOMINAL AORTA: No aortic aneurysm is seen. INFERIOR VENA CAVA: Visualized portions are normal. LIVER: The liver demonstrates normal size, contour and mildly diffusely increased echogenicity. No suspicious focal lesion or intrahepatic biliary duct dilatation. The right lobe measures 14.2 cm in length. The left lobe measures 11.3 cm in length. Portal flow is towards the liver (hepatopetal). Shear wave liver elastography median stiffness is 1.43 m/s (reference: normal median stiffness is 1.3 m/s or less). IQR/median stiffness to assess sampling precision is 0.22 (reference: good quality data set is IQR/median stiffness of 0.15 or less). GALLBLADDER: The gallbladder is physiologically distended without evidence of stones, sludge, polyps, wall thickening or pericholecystic fluid. COMMON BILE DUCT: Normal in caliber measuring 0.3 cm in diameter. RIGHT KIDNEY: No hydronephrosis. No renal calculi or focal parenchymal lesions. The kidney measures 10.3 cm in maximum dimension. LEFT KIDNEY: No hydronephrosis. No renal calculi or focal parenchymal lesions. The kidney measures 10.8 cm in maximum dimension. SPLEEN: Unremarkable. The spleen measures 11.8 cm in maximum dimension. FREE FLUID: None seen. US/US abdomen comp w elastography IMPRESSION: 1. Mildly diffusely increased hepatic echogenicity suggestive of fatty infiltration. No suspicious focal hepatic lesion. 2. Liver elastography: Although measurements appear to rule out compensated advanced chronic liver disease, there is statistical variability of the sampling which decreases accuracy. 3. No biliary dilatation. Normal gallbladder. 4. Remainder of the examination is normal. REFERENCE: Society of Radiologists in Ultrasound Liver Stiffness Thresholds (2019): LIVER STIFFNESS THRESHOLDS: *Liver Stiffness equal or less than 1.3 m/s: High probability of being normal. *Liver Stiffness less than 1.7 m/s: In the absence of other known clinical signs, rules out compensated advanced chronic liver disease. *Liver Stiffness 1.7-2.1 m/s: Suggestive of compensated advanced chronic liver disease but need further test for confirmation. *Liver Stiffness over 2.1 m/s: Rules in compensated advanced chronic liver disease. *Liver Stiffness over 2.4 m/s: Suggestive of clinically significant portal hypertension. QUALITY OF DATA SET: *IQR/Median value equal or less than 0.15 implies a quality data set. *IQR/Median value over 0.15 implies a poor quality data set. SIGNIFICANT CHANGE FROM PRIOR EXAM: Significant change if liver stiffness measurement is 10% or greater from prior exam. OTHER CONSIDERATIONS: The stage of liver fibrosis may be overestimated in the setting of acute hepatitis, liver inflammation, elevated liver function tests, hepatic vascular congestion, obstructive cholestasis, non-fasting state, and infiltrative diseases such as amyloidosis and lymphoma. In some patients with NAFLD, the liver stiffness thresholds for compensated advanced chronic liver disease may be lower. In causes other than viral hepatitis and NAFLD, liver stiffness thresholds are not well established. Electronically signed by: Du Garcia MD 12/30/2024 09:31 AM EDT Dictated By: Du Garcia MD Signed By: <Electronically signed by Du Garcia MD in OV> 12/30/24930 DD/ 5 TD/TT: 12/30/24917 Hog Man: Procedure Note Donotuseinterpreter, Image - 12/30/2024 [place] [address] Ultrasound Report Signed Patient: Denis BakerMR#: [id number] : 1980Acct:[id number] Age/Sex: 44 / MADM Date: 12/30/24 Loc: HO.US Attending Dr: Jeanette Mc [facility]- Ordering Physician: Jeanette Mc Date of Service: 12/30/24 Procedure(s): US abdomen comp w elastography Accession Number(s): [id number] cc: Jeanette Mc [facility]; [facility] EXAMINATION: US COMPLETE ABDOMEN WITH LIVER ELASTOGRAPHY CLINICAL INFORMATION: Abnormal blood chemistry. COMPARISON: Abdomen US 03/02/2024, 11/04/2016. No prior elastography. TECHNIQUE: Real-time imaging of the abdominal viscera. Noninvasive ultrasound liver fibrosis assessment is performed using Emily ElastPQ point quantification shear wave elastography (pSWE) with a C5-2 MHz transducer. Multiple elastography samples are obtained. FINDINGS: PANCREAS: The visualized pancreatic head and body are normal in appearance. The remainder of the pancreas is obscured from visualization by the overlying bowel gas. ABDOMINAL AORTA: No aortic aneurysm is seen. INFERIOR VENA CAVA: Visualized portions are normal. LIVER: The liver demonstrates normal size, contour and mildly diffusely increased echogenicity. No suspicious focal lesion or intrahepatic biliary duct dilatation. The right lobe measures 14.2 cm in length. The left lobe measures 11.3 cm in length. Portal flow is towards the liver (hepatopetal). Shear wave liver elastography median stiffness is 1.43 m/s (reference: normal median stiffness is 1.3 m/s or less). IQR/median stiffness to assess sampling precision is 0.22 (reference: good quality data set is IQR/median stiffness of 0.15 or less). GALLBLADDER: The gallbladder is physiologically distended without evidence of stones, sludge, polyps, wall thickening or pericholecystic fluid. COMMON BILE DUCT: Normal in caliber measuring 0.3 cm in diameter. RIGHT KIDNEY: No hydronephrosis. No renal calculi or focal parenchymal lesions. The kidney measures 10.3 cm in maximum dimension. LEFT KIDNEY: No hydronephrosis. No renal calculi or focal parenchymal lesions. The kidney measures 10.8 cm in maximum dimension. SPLEEN: Unremarkable. The spleen measures 11.8 cm in maximum dimension. FREE FLUID: None seen. US/US abdomen comp w elastography IMPRESSION: 1. Mildly diffusely increased hepatic echogenicity suggestive of fatty infiltration. No suspicious focal hepatic lesion. 2. Liver elastography: Although measurements appear to rule out compensated advanced chronic liver disease, there is statistical variability of the sampling which decreases accuracy. 3. No biliary dilatation. Normal gallbladder. 4. Remainder of the examination is normal. REFERENCE: Society of Radiologists in Ultrasound Liver Stiffness Thresholds (2020): LIVER STIFFNESS THRESHOLDS: *Liver Stiffness equal or less than 1.3 m/s: High probability of being normal. *Liver Stiffness less than 1.7 m/s: In the absence of other known clinical signs, rules out compensated advanced chronic liver disease. *Liver Stiffness 1.7-2.1 m/s: Suggestive of compensated advanced chronic liver disease but need further test for confirmation. *Liver Stiffness over 2.1 m/s: Rules in compensated advanced chronic liver disease. *Liver Stiffness over 2.4 m/s: Suggestive of clinically significant portal hypertension. QUALITY OF DATA SET: *IQR/Median value equal or less than 0.15 implies a quality data set. *IQR/Median value over 0.15 implies a poor quality data set. SIGNIFICANT CHANGE FROM PRIOR EXAM: Significant change if liver stiffness measurement is 10% or greater from prior exam. OTHER CONSIDERATIONS: The stage of liver fibrosis may be overestimated in the setting of acute hepatitis, liver inflammation, elevated liver function tests, hepatic vascular congestion, obstructive cholestasis, non-fasting state, and infiltrative diseases such as amyloidosis and lymphoma. In some patients with NAFLD, the liver stiffness thresholds for compensated advanced chronic liver disease may be lower. In causes other than viral hepatitis and NAFLD, liver stiffness thresholds are not well established. Electronically signed by: Du Garcia MD 12/30/2024 09:31 AM EDT Dictated By: Du Garcia MD Signed By: <Electronically signed by Du Garcia MD in OV> 12/30/2431 DD/ 5 TD/TT: 12/30/24917 Hog Man: us [facility] External Provider IMG US PROCEDURES Final Result * FL Upper GI w/air w/Barium Swallow (12/17/2024 8:00 AM EDT) Anatomical Region Laterality Modality Body Radiographic Anika ging 12/17/2024 8:00 AM EDT Narrative 12/17/2024 9:47 AM EDT [address] [address] Fluoroscopy Report Signed Patient: Denis Baker MR#: [id number] : 1980 Acct:[id number] Age/Sex: 44 / M ADM Date: 12/17/24 Loc: HO.XRAY Attending Dr: Jeanette Mc [facility]- Ordering Physician: Jeanette Mc [facility] Date of Service: 12/17/24 Procedure(s): FL upper GI w air w Ba Swallow Accession Number(s): [id number] cc: Jeanette Mc [facility]; [facility] EXAMINATION: XR UPPER GI SERIES WITH BARIUM [...] Kodi Tobin MD 12/17/2024 09:44 AM EDT RP Dictated By: Kodi Tobin MD Signed By: <Electronically signed by Kodi Tobin MD in OV> 12/17/24943 DD/ 9 TD/TT: 12/17/24814 Hog Man: [facility] Procedure Note Donotuseinterpreter, Image - 12/17/2024 [place] [address] Fluoroscopy Report Signed Patient: Yg Baker#: [id number] : 1980Acct:[id number] Age/Sex: 44 / MADM Date: 12/17/24 Loc: KELLY Attending Dr: Jeanette Mc [facility]- Ordering Physician: Jeanette Mc Date of Service: 12/17/24 Procedure(s): FL upper GI w air w Ba Swallow Accession Number(s): [id number] cc: Jeanette Mc; [facility] EXAMINATION: XR UPPER GI SERIES WITH BARIUM [...] Kodi Tobin MD 12/17/2024 09:44 AM EDT RP Dictated By: Kodi Tobin MD Signed By: <Electronically signed by Kodi Tobin MD in OV> 12/17/24943 DD/ 9 TD/TT: 12/17/24814 Hog Man: [facility] External Provider IMG FLU OROSCOPY PROCEDURES Final Result * VITAMIN D 25-OH (D2 AND D3) (11/16/2024 11:41 AM EDT) Vitamin D, 25-OH, D2 <4 ng/mL [facility] Comment:This test was develo ped and its analytical performancecharacteristics have been determined by [employer], [place]. It hasnot been cleared or approved by the U.S. Food and DrugAdministration. This assay has been validated pursuantto the CLIA regulations and is used for clinicalpurposes.THIS TEST WAS PERFORMED AT:[employer] [id number] [place] [address]HZSUAFTFAREED STOKES MD,PHD Vitamin D, 25-OH, D3 36 ng/mL [facility] Comment:This test was develo ped and its analytical performancecharacteristics have been determined by [employer] [place], [place]. It hasnot been cleared or approved by the U.S. Food and DrugAdministration. This assay has been validated pursuantto the CLIA regulations and is used for clinicalpurposes. Vitamin D, 25-OH, Total 36 30 - 100 ng/mL [facility] Comment:Vitamin D, 25-Hydrox y reports [...] = 30 ng/mL.For additional information, please refer tohttp://education.[employer]/faq/TPT739(This link is being provided for informational/educational purposes only.) 11/16/2024 11:4 1 AM EDT 11/16/2024 11:41 AM EDT Generic External Data Provider LAB BLOOD ORDERAB LES Final Result Performing Organization Address [facility] Co de Phone Number [facility] [address] [place] [phone] * Vitamin B12 (Cobalamin) and Folate Panel, Serum (11/16/2024 11:41 AM EDT) Vitamin B12 373 200 - 900 pg/mL [facility] Comment:NORMAL 200-900 PG/ML INDETERMINATE 160-199 PG/ML DEFICIENT < 160 PG/ML Folate 9.4 > or = 4.0 ng/mL [facility] Comment:Reference Values:> o r = 4.0 ng/mL< 4.0 ng/mL suggests folate deficiency Methotrexate, aminopterin and folinic acid(leucovorin) are chemotherapeutic agents whose molecularstructures are similar to folate; therefore, the Architectfolate assay cannot be used for patients using these drugs. 11/16/2024 11:4 1 AM EDT 11/16/2024 11:41 AM EDT us Generic External Data Provider LAB BLOOD ORDERAB LES Final Result Performing Organization Address [facility] Co de Phone Number [facility] [address] [place] [phone] * Lipase (11/16/2024 11:41 AM EDT) Lipase 32 8 - 78 U/L [facility] 11/16/2024 11:4 1 AM EDT 11/16/2024 11:41 AM EDT Generic External Data Provider LAB BLOOD ORDERAB LES Final Result [facility] [address] [place] [phone] * (ABNORMAL) Hepatic Function Panel (11/16/2024 11:41 AM EDT) Pathologist [facility] Bilirubin, Total 0.6 0.0 - 1.0 mg/dL [facility] Bilirubin, Direct 0.2 0.0 - 0.5 mg/dL [facility] Aspartate Amino Transferase 41(H) 5 - 37 U/L [facility] Alanine Aminotransferase 75(H) 0 - 40 U/L [facility] Total Protein 6.9 6.5 - 8.0 g/dL [facility] Albumin Level 4.4 3.5 - 5.0 g/dL [facility] Alkaline Phosphatase 103 39 - 117 U/L [facility] 11/16/2024 11:4 1 AM EDT 11/16/2024 11:41 AM EDT us Generic External Data Provider LAB BLOOD ORDERAB LES Final Result [facility] [address] [place] [phone] * (ABNORMAL) Lipid Panel, Standard (01/21/2024 10:38 AM EDT) Triglycerides 160(H) <150 mg/dL [facility] Comment:Desirable Triglyceri de: less than 150 mg/dLBorderline High Triglyceride 150-199 mg/dLHigh Triglyceride: 200-499 mg/dLVery High Triglyceride: greater than or equal to 5OO mg/dL Cholesterol 172 <200 mg/dL [facility] Comment:Desirable Cholestero l: less than 200 mg/dLBorderline High Cholesterol: 200-239 mg/dLHigh Cholesterol: greater than 239 mg/dL LDL Cholesterol Calculated 89 <100 mg/dL [facility] Comment:Desirable LDL: less than 100 mg/dLNear Optimal/Above Optimal LDL: 110- 129 mg/dLBorderline High LDL: 130-159 mg/dLHigh LDL: 160-189 mg/dLVery High LDL: greater than or equal to 190 mg/dL HDL Cholesterol 51 >40 mg/dL [facility] Comment:Desirable HDL: great er than 40 mg/dL Note: This HDL assay may give artificially low results in patients with liver disease. Blood Venous blood specimen / Unknown 01/21/2024 10:38 AM EDT 01/21/2024 1:00 PM EDT [facility] LAB BLOOD ORDERABLES Final Re sult Performing Organization Address [facility] de Phone Number [facility] [address] [place] [phone] * Hepatitis C Antibody with Reflex to HCV, RNA, Quantitative, Real-Time PCR (01/21/2024 10:35 AM EDT) Hepatitis C Antibody Nonreactive Nonreactive [facility] Comment:Antibodies to HCV no t detected; does not exclude early acuteHCV infection. Blood Venous blood specimen / Unknown 01/21/2024 10:35 AM EDT 01/21/2024 1:00 PM EDT [facility] LAB BLOOD ORDERABLES Final Re sult Performing Organization Address City/[facility]/ZIP Co de Phone Number [facility] [address] [place] [phone] * HIV-1/2 Antigen and Antibodies, Fourth Generation, with Reflexes (01/21/2024 10:35 AM EDT) HIV AB/AG Nonreactive Nonreactive [facility] Comment:HIV-1 p24 Ag and/or HIV-1/HIV-2 Ab not detected.A test result that is nonreactive does not exclude thepossibility of exposure to or infection with HIV-1 and/orHIV-2. Nonreactive results in this assay for individualswith prior exposure to HIV-1 and/or HIV-2 may be due toantigen and antibody levels that are below the limit ofdetection of this assay.[employer] HIV Ag/Ab Combo assay result andsupplemental assay results should be interpreted inconjunction with the patient's clinical presentation,history and other laboratory results. If the results areinconsistent with clinical evidence, additional testing issuggested to confirm the result. Blood Venous blood specimen / Unknown 01/21/2024 10:35 AM EDT 01/21/2024 1:00 PM EDT [facility] LAB BLOOD ORDERABLES Final Re sult [facility] [address] [place] [address] [phone] from Last 3 Months or Most Recently Relevant to Health Maintenance Insurance [facility] [place]UNIER DÍZA [id number] Care Teams Artificial Breast Fabricator Relationship Specialty Start Date End Date [place] HeadMadie owens FNP [address] [place] [phone] PCP - General Family Medicine 12/30/21
== END 2025-01-31 10:12 | disposition home or self-care (01) ==
LOC: HO.HHCX 10:11
PROVIDERS: PCP Internal Medicine; Visit Provider Internal Medicine
DX: J40 Bronchitis, not specified as acute or chronic (principal)
CPT/HCPCS: 71046

== ENCOUNTER → 2025-01-31 10:46 | Outpatient (BNV) | payer OTHER, SELFPAY | PROVIDERS: PCP Internal Medicine; Visit Provider Radiology Diagnostic Radiology | DX: J20.9 Acute bronchitis, unspecified (principal) | CPT/HCPCS: 71046 ==

== ENCOUNTER 2025-02-02 12:59 | Outpatient (AMB) | payer OTHER, SELFPAY ==
--- OUTSIDE RECORDS SUMMARY | 2025-01-29 10:20 | XMS_ITS | Encounter Summary ---
Author Organization [employer] Address [address] [facility] 7t [place] [address] Care Team Providers Care Coping Machine Operator Name Role Phone Madie Evans PIANO TECHNICIAN Primary Care Provider [phone] Reason for Visit * Reason Comments Nasal Congestion Cough Encounter Details Date Type Department Care Team ([facility] st Contact Info) Description 01/29/2025 10:20 AM EDT Office Visit [facility] [address] [place] [phone] Tiff Roberts MD [address] [place] [phone] Bronchitis (Primary Dx); Nasal congestion; Cough in adult; Shortness of breath Social History Tobacco Use Types Packs/Day Years Used Date Smoking Tobacco: Every Day Cigarettes Passive Smoke Exposure: Current Smokeless Tobacco: Never Alcohol Use Standard Drinks/Week Comments Yes 5 [...] AM EDT documented as of this encounter Last Filed Vital Signs Vital Sign Reading Time Taken Comments Blood Pressure 118/88 01/29/2025 10:30 AM EDT Pulse 89 01/29/2025 10:30 AM EDT Temperature 36.8 C (98.2 F) 01/29/2025 10:30 AM EDT Respiratory Rate 20 01/29/2025 10:30 AM EDT Oxygen Saturation 95% 01/29/2025 10:30 AM EDT Inhaled Oxygen Concentration - - Weight 82.7 kg (182 lb 6 oz) 01/29/2025 10:30 AM EDT Height 165.1 cm (5' 5 ) 01/29/2025 10:30 AM EDT Body Mass Index 30.35 01/29/2025 10:30 AM EDT documented in this encounter Progress Notes * Tiff Roberts MD - 01/29/2025 10:20 AM EDT SUBJECTIVE: Denis Baker is a 44 y.o. year old male who presents for Walk In [facility]/[employer] like sxs. Denies recent illness, injury, or hospitalization. Acute Concerns: Complaining of nasal congestion, decreased sense of smell and taste, headache and sore throat x 1 week. He has worsening nasal congestion, cough with yellowish sputum, low-grade fever and shortness of breath for the past 2 days. He does not have any sick contacts, he smokes THC + nicotine. 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 Negative for fever. HENT: Positive for congestion, rhinorrhea and sore throat. Negative for ear pain. Eyes: Positive for discharge. Negative for pain. Respiratory: Positive for cough. Negative for shortness of breath. Cardiovascular: Negative for chest pain. Gastrointestinal: Negative for abdominal pain, constipation, diarrhea and nausea. Endocrine: Negative for polydipsia. Genitourinary: Negative for dysuria and frequency. Musculoskeletal: Negative for arthralgias, back pain and neck pain. Neurological: Positive for headaches. Negative for dizziness and numbness. Psychiatric/Behavioral: Negative for agitation. OBJECTIVE: Vitals: 01/29/25 1030 BP: 118/88 Pulse: 89 Resp: 20 Temp: 98.2 ??F (36.8 ??C) SpO2: 95% Physical Exam Constitutional: Appearance: Normal appearance. HENT: Right Ear: Tympanic membrane and ear canal normal. Left Ear: Tympanic membrane and ear canal normal. Nose: Right Turbinates: Swollen. Left Turbinates: Swollen. Mouth/Throat: Mouth: Mucous membranes are moist. Pharynx: No oropharyngeal exudate or posterior oropharyngeal erythema. Eyes: Pupils: Pupils are equal, round, and reactive to light. Cardiovascular: Rate and Rhythm: Normal rate and regular rhythm. Heart sounds: No murmur heard. Pulmonary: Breath sounds: Examination of the right-upper field reveals rhonchi. Examination of the left-upper field reveals rhonchi. Examination of the right-middle field reveals rhonchi. Examination of the left-middle field reveals rhonchi. Examination of the right-lower field reveals rhonchi. Examination ofthe left- lower field reveals rhonchi. Rhonchi present. No wheezing. Abdominal: General: Bowel sounds are normal. Palpations: Abdomen is soft. Tenderness: There is no abdominal tenderness. Musculoskeletal: General: No tenderness. Normal range of motion. Cervical back: Normal range of motion. No tenderness. Skin: General: Skin is warm. Neurological: General: No focal deficit present. Mental Status: He is alert and oriented to person, place, and time. Psychiatric: Mood and Affect: Mood normal. Office Visit on 01/29/2025 Component Date Value Ref Range Status Influenza B 01/29/2025 Negative Negative, Indeterminate Final QC Media Lot # 01/29/2025 [id number] Final Lot# Expiration Date 01/29/2025 12,042,026 Final Influenza A 01/29/2025 Negative Negative, Indeterminate Final QC Media Lot # 01/29/2025 [id number] Final Lot# Expiration Date 01/29/2025 12,042,026 Final Coronavirus Antigen PCR 01/29/2025 Negative Negative, Indeterminate, None Detected, Invalid, Specimen unsatisfactory for evaluation, Weakly Positive, 2+ Final QC Media Lot # 01/29/2025 [id number] Final Lot# Expiration Date 01/29/2025 10,083,026 Final Problem List Items Addressed This Visit Bronchitis - Primary Rapid viral test are negative today. Rx Z-Tyrone x 5 days, he is to be out of work to complete antibiotics. Order CXR and call back as needed abnormal results, may need a second antibiotic if he has pneumonia. Use albuterol 3 times daily for the next 5 days then as needed Use face mask for the next 2 days, then as needed Advised to quit smoking Relevant Medications albuterol (Ventolin HFA) 108 (90 Base) MCG/ACT inhaler Other Relevant Orders XR Chest 2 Views Other Visit Diagnoses Nasal congestion Relevant Orders POCT Rapid Influenza B MARTINEZ ID NOW (Completed) POCT Rapid Influenza A MARTINEZ ID NOW (Completed) POCT Rapid Covid-19 MARTINEZ ID NOW (Completed) Cough in adult Relevant Medications albuterol (Ventolin HFA) 108 (90 Base) MCG/ACT inhaler Other Relevant Orders POCT Rapid Influenza B MARTINEZ ID NOW (Completed) POCT Rapid Influenza A MARTINEZ ID NOW (Completed) POCT Rapid Covid-19 MARTINEZ ID NOW (Completed) Shortness of breath Relevant Medications albuterol (Ventolin HFA) 108 (90 Base) MCG/ACT inhaler Follow Up: Medications Ordered Prior to Encounter[3] [1] Patient Active Problem List Diagnosis Acute low back pain Acute pain of both knees Alcoholic fatty liver Asthma-chronic obstructive pulmonary disease overlap syndrome (CMS/HCC) Hematoma of neck Hemorrhoids Neck pain Polysubstance abuse (CMS/HCC) Vitamin D deficiency Tobacco use disorder Sprain of thoracic region Sprain of sacroiliac ligament Scalp cyst Hypercholesteremia Elevated amylase and lipase Depressive disorder Alcohol abuse Abnormal LFTs PTSD (post-traumatic stress disorder) Anxiety Bronchitis [2] No family history on file. [3] Current Outpatient Medications on File Prior to Visit Medication Sig Dispense Refill ARIPiprazole (Abilify) 10 MG tablet Take 1 tablet (10 mg) by mouth Once per day. 30 tablet 1 benzoyl peroxide (PanOxyl Foaming Wash) 10 % external wash Apply topically 2 times daily. 227 g 0 cyclobenzaprine (Flexeril) 5 MG tablet Take 1 tablet by mouth every 8 (eight) hours. folic acid (Folvite) 1 MG tablet Take 1 tablet (1,000 mcg) by mouth in the morning. 90 tablet 1 hydrocortisone 2.5 % cream apply by topical route 2 times every day a thin layer to the affected area(s) for 2 weeks then go to cerave pantoprazole (Protonix) 40 MG EC tablet Take 1 tablet (40 mg) by mouth 2 times daily. Do not crush,chew, or split. 60 tablet 1 Salicylic Acid 40 % pads Apply 1 patch topically every other day. 36 each 0 sertraline (Zoloft) 50 MG tablet Take 1 tablet (50 mg) by mouth in the morning. as directed 30 tablet 1 sodium chloride ([place]) 0.65 % nasal spray Administer 2 sprays into affected nostril(s) every 6 (six) hours. traZODone (Desyrel) 100 MG tablet TAKE 1 TABLET BY MOUTH AT BEDTIME NEEDED FOR SLEEP 30 tablet 0 [DISCONTINUED] Ventolin HFA 108 (90 Base) MCG/ACT inhaler INHALE 2 PUFFS EVERY 6 (SIX) HOURS IF NEEDED FOR SHORTNESS OF BREATH OR WHEEZING. 18 g 3 No current facility-administered medications on file prior to visit. documented in this encounter Miscellaneous Notes * Assessment & Plan Note - Tiff Roberts MD - 01/29/2025 12:52 PM EDT Associated Problem(s): Bronchitis Rapid viral test are negative today. Rx Z-Tyrone x 5 days, he is to be out of work to complete antibiotics. Order CXR and call back as needed abnormal results, may need a second antibiotic if he has pneumonia. Use albuterol 3 times daily for the next 5 days then as needed Use face mask for the next 2 days, then as needed Advised to quit smoking documented in this encounter Plan of Treatment Not on file documented as of this encounter Procedures Procedure Name Priority Date/Time Associated Diagnosis Comments XR CHEST 2 VIEWS Routine 01/31/2025 11:0 6 AM EDT Bronchitis POCT INFLUENZA A (ID NOW RAPID MOLECULAR) Routine 01/29/2025 10:46 AM EDT Nasal congestion Cough in adult POCT COVID-19 AG MARTINEZ ID NOW Routine 01/29/2025 10:46 AM EDT Nasal congestion Cough in adult POCT INFLUENZA B (ID NOW RAPID MOLECULAR) Routine 01/29/2025 10:45 AM EDT Nasal congestion Cough in adult documented in this encounter Results * XR Chest 2 Views (01/31/2025 11:06 AM EDT) Anatomical Region Laterality Modality Chest Radiographic Anika ging 01/31/2025 11:0 6 AM EDT Narrative 01/31/2025 11:19 AM EDT [address] [address] XRay Report Signed Patient: Denis Baker MR#: [id number] : 1980 Acct:[id number] Age/Sex: 44 / M ADM Date: 01/31/25 Loc: HO.HHCX Attending Dr: Tiff Roberts MD Ordering Physician: Tiff Roberts MD Date of Service: 01/31/25 Procedure(s): XR chest 2V Accession Number(s): [id number] cc: Tiff Roberts MD Reason for Exam: BRONCHITIS EXAMINATION: XR CHEST CLINICAL INFORMATION: BRONCHITIS COMPARISON: 09/24/2024. TECHNIQUE: 2 views of the chest were obtained. FINDINGS: The cardiac, hilar, and mediastinal contours are normal. The lungs are clear bilaterally. There is no pneumothorax or pleural effusion. There is no focal osseous or soft tissue abnormality. XR/XR chest 2V IMPRESSION: Normal chest. Electronically signed by: Du Garcia MD 01/31/2025 11:16 AM EDT RP Dictated By: Du Garcia MD Signed By: <Electronically signed by Du Garcia MD in OV> 01/31/25 1116 DD/ 1106 TD/TT: 01/31/25 1108 Director Data Management: Procedure Note Donotuseinterpreter, Image - 01/31/2025 [place] [address] XRay Report Signed Patient: Yg Baker#: [id number] : 1980Acct:[id number] Age/Sex: 44 / MADM Date: 01/31/25 Loc: HO.HHX Attending Dr: Tiff Roberts MD Ordering Physician: Tiff Roberts MD Date of Service: 01/31/25 Procedure(s): XR chest 2V Accession Number(s): [id number] cc: Tiff Roberts MD Reason for Exam: BRONCHITIS EXAMINATION: XR CHEST CLINICAL INFORMATION: BRONCHITIS COMPARISON: 09/24/2024. TECHNIQUE: 2 views of the chest were obtained. FINDINGS: The cardiac, hilar, and mediastinal contours are normal. The lungs are clear bilaterally. There is no pneumothorax or pleural effusion. There is no focal osseous or soft tissue abnormality. XR/XR chest 2V IMPRESSION: Normal chest. Electronically signed by: Du Garcia MD 01/31/2025 11:16 AM EDT RP Dictated By: Du Garcia MD Signed By: <Electronically signed by uD Garcia MD in OV> 01/31/25 1116 DD/ 1106 TD/TT: 01/31/25 1108 Director Data Management: Tiff Roberts MD IMG XR PROCEDURES Final Result * POCT Rapid Covid-19 MARTINEZ ID NOW (01/29/2025 10:46 AM EDT) Pathologist [facility] Coronavirus Antigen PCR Negative Negative, Indeterminate, None Detected, Invalid, Specimen unsatisfactory for evaluation, Weakly Positive, 2+ QC Media Lot # [id number] Lot# Expiration Date Swab 01/29/2025 10:4 6 AM EDT Tiff Roberts MD POINT OF CARE TEST ENTER /EDIT ORDERABLES Final Result * POCT Rapid Influenza A MARTINEZ ID NOW (01/29/2025 10:46 AM EDT) [facility] Influenza A Negative Negative, Indeterminate [facility] QC Media Lot # [id number] [facility] Lot# Expiration Date [facility] Swab 01/29/2025 10:4 6 AM EDT Tiff Roberts MD POINT OF CARE TEST ENTER /EDIT ORDERABLES Final Result [facility] [address] [place] [phone] * POCT Rapid Influenza B MARTINEZ ID NOW (01/29/2025 10:45 AM EDT) [facility] Influenza B Negative Negative, Indeterminate [facility] QC Media Lot # [id number] [facility] Lot# Expiration Date [facility] Swab 01/29/2025 10:4 5 AM EDT us Tiff Roberts MD POINT OF CARE TEST ENTER /EDIT ORDERABLES Final Result [facility] [address] [place] [phone] documented in this encounter Visit Diagnoses Diagnosis Bronchitis- Primary Bronchitis, not specified as acute or chronic Nasal congestion Other diseases of nasal cavity and sinuses Cough in adult Shortness of breath documented in this encounter Additional Health Concerns Assessment Noted Time PHQ-9 Depression Total Score: 20 024 10:57 AM EDT documented as of this encounter Care Teams Coping Machine Operator Relationship Specialty Start Date End Date Madie Evans FNP [address] [place] [phone] PCP - General Family Medicine 12/30/21 documented as of this encounter
[2025-02-02 13:01] VITALS: BP 118/62; PULSE 94; BMI 30.7
--- NOTE | 2025-02-02 13:01 | MHC.OFFVIS ---
Vital Signs 02/02/25 13:01 Height 5 ft 5 in Weight 184 lb 4.903 oz BMI 30.7 BP 118/62 Blood Pressure Location Rt brachial Position Sitting Pulse 94 Pulse Source Monitor Intake Visit Reasons: GAMING FLOOR SUPERVISOR/Chest Pain/ Ciara Top Hat Body Maker Required: No Accompanied by: Self / Same As Patient Allergies Seasonal Allergies Allergy (Unknown, Verified 02/02/25 13:06) Unknown Medication List - Last Reconciled 02/02/25 by Jovanny Torres MD budesonide-formoterol 160-4.5 mcg/actuation (Symbicort) 2 puffs inhalation BID 30 days trazodone 100 mg PO BEDTIME PRN HPI Comments Details: Pleasant 44 year gentleman who is referred to us for chest pain. In November 2024 he was seen in the GI office for hemorrhoids and also complained of some burning sensation in the chest. He previously was in the emergency department for these symptoms and was ruled out and discharged home. He is saying that he probably ate something and potentially the symptoms were due to indigestion. He has not had any further symptoms since then. 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 He has not had any further symptoms since then. He is coming out of AFib bronchitis episode currently and has background of asthma and has noticed some shortness of breath more than usual. He is bronchospastic. He is saying he is getting better though. He is an active smoker and also smokes marijuana. [facility] Medical History Bleeding hemorrhoids Opioid use disorder Seasonal asthma Family History Maternal Grandmother Breast cancer Social History Alcohol intake: current Alcohol intake frequency: 3 or more drinks per day Alcohol type: beer and hard liquor Substance Use Type: Marijuana Review of Systems Const Denies chills, Denies daytime sleepiness, Denies fatigue, Denies fever(s), Denies poor appetite, Denies snoring, Denies stops breathing during sleep, Denies weight gain and Denies weight loss Eyes Denies loss of vision Card Denies chest pain, Denies claudication, Denies leg edema, Denies lightheadedness, Denies palpitations, Reports dyspnea, Reports dyspnea on exertion and Denies orthopnea Resp Denies cough, Denies excessive phlegm production, Denies pain with cough, Reports dyspnea, Reports dyspnea on exertion, Denies snoring, Denies wheezing and Denies other GI Denies abdominal pain, Denies hematochezia, Denies change in bowel habits, Denies nausea and Denies vomiting Denies dysuria and Denies urinary frequency Musc Denies arthralgias and Denies muscle weakness Skin/Breast Denies nail changes and Denies rash Neuro Denies loss of vision and Denies memory loss Psych Denies depression, Reports difficulty concentrating, Denies auditory hallucinations and Denies memory loss Endo Denies fatigue and Denies palpitations Elias/Lymph Denies easy bruising Aller/Immun Denies wheezing Physical Exam Vital Signs: Last Vital Signs Pulse 94 02/02/25 13:01 BP 118/62 02/02/25 13:01 BMI result Body Mass Index 30.7 GENERAL APPEARANCE: in no acute distress, pleasant. NECK: no carotid bruit, no jugular venous distention. SKIN: no suspicious lesions, warm and dry. HEART: no murmurs, regular rate and rhythm. LUNGS: Mild expiratory wheezes. ABDOMEN: soft, nontender. EXTREMITIES: no edema. PERIPHERAL PULSES: equal. NEUROLOGIC: No gross deficits, AAO X 3 Office Procedures EKG Details: Sinus rhythm 94 beats per minute, normal ECG, QTC 450 milliseconds. 65143-[id number], Complete Assessment & Plan Assessment & Plan (1) Chest pain: Code(s): R07.9 - Chest pain, unspecified Category: Medical Plan 44 year gentleman who is referred to us for chest pain. He had 1 episode of chest pain couple of months ago which was a burning sensation in the chest. He thinks this was indigestion. He has not had any further symptoms since then. He is active at work but does not exercise regularly. EKGs normal. He has not had any recurrent chest discomfort. Currently I think he does not do any stress testing. We will do echocardiography to rule out any structural heart issues. He will follow up with us in 1 year. He will report to us if he developed any further chest pains. He was counseled about stopping smoking and marijuana use. Thank you for allowing me to participate in the care of your patient. Please feel free to contact me if you have any questions. Orders: Orders [place] echo transthorac w con Today R07.9 - Chest pain, unspecified Coding Level of Care Code New Pt Level 4 (15709) Diagnoses Chest pain R07.9 CPT Codes EKG - CPT: 16855-Tmshijzfyckmqkask, Complete ([id number])
--- OUTSIDE RECORDS SUMMARY | 2025-02-02 14:17 | XMS_ITS | Clinical Summary ---
Author Organization [facility] Address [address] [facility] [address] [place] [address] Phone Care Team Providers Care Electric Well Logging Operator Name Role Phone Pcp, Unknown Primary Care [...] topic Medical Devices Not on file Insurance [facility] [employer] [place] [id number] [facility] C3 ACO [facility] C3 ACO Care Teams Electric Well Logging Operator Relationship Specialty Start Date End Date Pcp, Unknown PCP - General 06/09/22 Additional Source Comments The information contained in this document represents components of the legal health record. It is not the complete legal health record.[facility]
--- OUTSIDE RECORDS SUMMARY | 2025-02-02 14:17 | XMS_ITS | Clinical Summary ---
Author Organization [employer] Address [address] [facility] [address] [place] [address] Care Team Providers Care Transitional Nurse Name Role Phone Madie Evasn FINAL ASSEMBLY WORKER Primary Care Provider [phone] Allergies No known active allergies Medications * This document contains information received from the source organization and may not represent a complete record from that organization. sodium chloride ([place]) 0.65 % nasal spray Administer 2 sprays into affected nostril(s) every 6 (six) hours. Active cyclobenzaprine (Flexeril) 5 MG tablet Take 1 tablet by mouth every 8 (eight) hours. 04/03/20 21 Active hydrocortisone 2.5 % cream apply by topical route 2 times every day a thin layer to the affected area(s) [facility] Active Salicylic Acid 40 % [...] 10:20 AM EDT Office Visit [facility] [address] [place] [address] Tiff Roberts MD Bronchitis (Primary Dx); Nasal congestion; Cough in adult; Shortness of breath 01/29/2025 Travel 12/17/2024 Orders Only [facility] External Provider, [facility] 11/16/2024 Orders Only GENERIC EXTERNAL DATA DEPARTMENT Provider, Generic External Data 11/12/2024 Refill [facility] [address] [place] [address] CristinaMadie, FINAL ASSEMBLY WORKER Depressive disorder from Last 3 Months Immunizations [...] the past 12 months, has t he Mg[employer], [employer], oil or water [employer] threatened to shut off services in your [...] 01/31/2025 11:0 6 AM EDT Bronchitis POCT COVID-19 AG MARTINEZ ID NOW Routine [...] Recently Relevant to Health Maintenance Results * XR Chest 2 Views (01/31/2025 11:06 AM EDT) Anatomical Region Laterality Modality Chest Radiographic Anika ging 01/31/2025 11:0 6 AM EDT Narrative 01/31/2025 11:19 AM EDT [address] [address] XRay Report Signed Patient: Denis Baker MR#: [id number] : 1980 Acct:[id number] Age/Sex: 44 / M ADM Date: 01/31/25 Loc: HO.HHCX Attending Dr: Tiff Roberts MD Ordering Physician: Tiff Roberts MD Date of Service: 01/31/25 Procedure(s): XR chest 2V Accession Number(s): [id number] cc: Tiff Roberts MD Reason for Exam: [...] 01/31/25 1116 DD/ 1106 TD/TT: 01/31/25 1108 Acetylene Torch Operator: Procedure Note Donotuseinterpreter, Image - 01/31/2025 [place] [address] XRay Report Signed Patient: Yg Baker#: [id number] : 1980Acct:[id number] Age/Sex: 44 / MADM Date: 01/31/25 Loc: HO.HHCX Attending Dr: Tiff Roberts MD Ordering Physician: Tiff Roberts MD Date of Service: 01/31/25 Procedure(s): XR chest 2V Accession Number(s): [id number] cc: Tiff Roberts MD Reason for Exam: [...] 01/31/25 1116 DD/ 1106 TD/TT: 01/31/25 1108 Acetylene Torch Operator: Tiff Roberts MD IMG XR PROCEDURES Final Result * POCT Rapid Influenza A MARTINEZ ID NOW (01/29/2025 10:46 AM EDT) Pathologist [facility] Influenza A Negative Negative, Indeterminate [facility] QC Media Lot # [id number] [facility] Lot# Expiration Date ,026 [facility] Swab 01/29/2025 10:4 6 AM EDT Tiff Roberts MD POINT OF CARE TEST ENTER /EDIT ORDERABLES Final Result [facility] [address] [place], [place] [phone] * POCT Rapid Covid-19 MARTINEZ ID NOW (01/29/2025 10:46 AM EDT) Coronavirus Antigen PCR Negative Negative, Indeterminate, None Detected, Invalid, Specimen unsatisfactory for evaluation, Weakly Positive, 2+ QC Media Lot # [id number] Lot# Expiration Date , Swab 01/29/2025 10:4 6 AM EDT Tiff Roberts MD POINT OF CARE TEST ENTER /EDIT ORDERABLES Final Result * POCT Rapid Influenza B MARTINEZ ID NOW (01/29/2025 10:45 AM EDT) Influenza B Negative Negative, Indeterminate [facility] QC Media Lot # [id number] [facility] Lot# Expiration Date ,776,245 [facility] Swab 01/29/2025 10:4 5 AM EDT us Tiff Roberts MD POINT OF CARE TEST ENTER /EDIT ORDERABLES Final Result [facility] [address] [place] [phone] * US Abdomen Comp w elastography (12/30/2024 9:06 AM EDT) Anatomical Region Laterality Modality Abdomen Ultrasound 12/30/2024 9:06 AM EDT Narrative 12/30/2024 9:34 AM EDT [address] [address] Ultrasound Report Signed Patient: Denis Baker MR#: [id number] : 1980 Acct:[id number] Age/Sex: 44 / M ADM Date: 12/30/24 Loc: HO.US Attending Dr: Jeanette Mc FINAL ASSEMBLY WORKER- Ordering Physician: Jeanette Mc Date of Service: 12/30/24 Procedure(s): US abdomen comp w elastography Accession Number(s): [id number] cc: Jeanette Mc [facility]; [facility] EXAMINATION: US COMPLETE ABDOMEN WITH LIVER ELASTOGRAPHY [...] in OV> 12/30/24930 DD/ 5 TD/TT: 12/30/24917 Acetylene Torch Operator: Procedure Note Donotuseinterpreter, Image - 12/30/2024 [place] [address] Ultrasound Report Signed Patient: Denis BakerMR#: [id number] : 1980Acct:[id number] Age/Sex: 44 / MADM Date: 12/30/24 Loc: HO.US Attending Dr: Jeanette MAYER Ordering Physician: Jeanette Mc Date of Service: 12/30/24 Procedure(s): US abdomen comp w elastography Accession Number(s): [id number] cc: Jeanette Mc; [facility] EXAMINATION: US COMPLETE ABDOMEN WITH LIVER ELASTOGRAPHY [...] MD in OV> 12/30/24930 DD/ 5 TD/TT: 12/30/2418 Acetylene Torch Operator: us [facility] External Provider IMG US PROCEDURES Final Result * FL Upper GI w/air w/Barium Swallow (12/17/2024 8:00 AM EDT) Anatomical Region Laterality Modality Body Radiographic Anika ging 12/17/2024 8:00 AM EDT Narrative 12/17/2024 9:47 AM EDT [place] [address] Fluoroscopy Report Signed Patient: Denis Baker MR#: [id number] : 1980 Acct:[id number] Age/Sex: 44 / M ADM Date: 12/17/24 Loc: KELLY Attending Dr: Jeanette OSORIO- Ordering Physician: Jeanette Mc Date of Service: 12/17/24 Procedure(s): FL upper GI w air w Ba Swallow Accession Number(s): [id number] cc: Jeanette Mc FINAL ASSEMBLY WORKER-; [facility] FINAL ASSEMBLY WORKER EXAMINATION: XR UPPER GI SERIES WITH BARIUM [...] signed by Kodi Tobin MD in OV> 12/17/24 0944 DD/ 0800 TD/TT: 12/17/24 0815 Acetylene Torch Operator: [facility] Procedure Note Donotuseinterpreter, Image - 12/17/[address] [address] Fluoroscopy Report Signed Patient: Yg Baker#: [id number] : 1980Acct:[id number] Age/Sex: 44 / MADM Date: 12/17/24 Loc: KELLY Attending Dr: Jeanette Mc [facility]- Ordering Physician: Jeanette Mc [facility]- Date of Service: 12/17/24 Procedure(s): FL upper GI w air w Ba Swallow Accession Number(s): [id number] cc: Jeanette Mc [facility]; [facility] EXAMINATION: XR UPPER GI SERIES WITH BARIUM [...] OV> 12/17/24943 DD/ 0800 TD/TT: 12/17/24 0815 Acetylene Torch Operator: MANASA [facility] External Provider IMG FLU OROSCOPY PROCEDURES Final Result * VITAMIN D 25-OH (D2 AND D3) (11/16/2024 11:41 AM EDT) Vitamin D, 25-OH, D2 <4 ng/mL [facility] Comment:This test was develo ped and its analytical performancecharacteristics have been determined by Dr. Z [place], [place]. It hasnot been cleared or approved by the U.S. Food and DrugAdministration. This assay has been validated pursuantto the CLIA regulations and is used for clinicalpurposes.THIS TEST WAS PERFORMED AT:[employer] [id number] [place] [address]MCVKAEDFAREED STOKES MD,PHD Vitamin D, 25-OH, D3 36 ng/mL [facility] Comment:This test was develo ped and its analytical performancecharacteristics have been determined by Dr. Z [place], [place]. It hasnot been cleared or approved by the U.S. Food and DrugAdministration. This assay has been validated pursuantto the CLIA regulations and is used for clinicalpurposes. Vitamin D, 25-OH, Total 36 30 - 100 ng/mL [facility] Comment:Vitamin D, 25-Hydrox y reports concentrations [...] = 30 ng/mL.For additional information, please refer [email or web address](This link is being provided for informational/educational purposes only.) 11/16/2024 11:4 1 AM EDT 11/16/2024 11:41 AM EDT us Generic External Data Provider LAB BLOOD ORDERAB LES Final Result [facility] [address] [place] [phone] [phone] * Vitamin B12 (Cobalamin) and Folate Panel, Serum (11/16/2024 11:41 AM EDT) Pathologist [facility] Vitamin B12 373 200 - 900 pg/mL [facility] Comment:NORMAL 200-900 PG/ML INDETERMINATE 160-199 PG/ML DEFICIENT < 160 PG/ML Folate 9.4 > or = 4.0 ng/mL [facility] Comment:Reference Values:> o r = 4.0 ng/mL< 4.0 ng/mL suggests folate deficiency Methotrexate, aminopterin and folinic acid(leucovorin) are chemotherapeutic agents whose molecularstructures are similar to folate; therefore, the Architectfolate assay cannot be used for patients using these drugs. 11/16/2024 11:4 1 AM EDT 11/16/2024 11:41 AM EDT us Generic External Data Provider LAB BLOOD ORDERAB LES Final Result Performing Organization Address [facility] de Phone Number [facility] [address] [place] [phone] * Lipase (11/16/2024 11:41 AM EDT) [facility] Lipase 32 8 - 78 U/L [facility] 11/16/2024 11:4 1 AM EDT 11/16/2024 11:41 AM EDT us Generic External Data Provider LAB BLOOD ORDERAB LES Final Result Performing Organization Address [facility] Co de Phone Number [facility] [address] [place] [phone] * (ABNORMAL) Hepatic Function Panel (11/16/2024 11:41 AM EDT) [facility] Bilirubin, Total 0.6 0.0 - 1.0 mg/dL [facility] Bilirubin, Direct 0.2 0.0 - 0.5 mg/dL [facility] Aspartate Amino Transferase 41(H) 5 - 37 U/L [facility] Alanine Aminotransferase 75(H) 0 - 40 U/L [facility] Total Protein 6.9 6.5 - 8.0 g/dL [facility] Albumin Level 4.4 3.5 - 5.0 g/dL [facility] Alkaline Phosphatase 103 39 - 117 U/L [facility] 11/16/2024 11:4 1 AM EDT 11/16/2024 11:41 AM EDT us Generic External Data Provider LAB BLOOD ORDERAB LES Final Result [facility] [address] [place] [phone] * (ABNORMAL) Lipid Panel, Standard (01/21/2024 10:38 AM EDT) Triglycerides 160(H) <150 mg/dL [facility] Comment:Desirable Triglyceri de: less than 150 mg/dLBorderline High Triglyceride 150-199 mg/dLHigh Triglyceride: 200-499 mg/dLVery High Triglyceride: greater than or equal to 5OO mg/dL Cholesterol 172 <200 mg/dL [facility] Comment:Desirable Cholestero l: less than 200 mg/dLBorderline High Cholesterol: 200-239 mg/dLHigh Cholesterol: greater than 239 mg/dL LDL Cholesterol Calculated 89 <100 mg/dL [facility] Comment:Desirable LDL: less than 100 mg/dLNear Optimal/Above Optimal LDL: 110- 129 mg/dLBorderline High LDL: 130-159 mg/dLHigh LDL: 160-189 mg/dLVery High LDL: greater than or equal to 190 mg/dL HDL Cholesterol 51 >40 mg/dL [facility] Comment:Desirable HDL: great er than 40 mg/dL Note: This HDL assay may give artificially low results in patients with liver disease. Blood Venous blood specimen / Unknown 01/21/2024 10:38 AM EDT 01/21/2024 1:00 PM EDT [facility] LAB BLOOD ORDERABLES Final Re sult Performing Organization Address [facility] Co de Phone Number [facility] [address] [place] [phone] * Hepatitis C Antibody with Reflex to HCV, RNA, Quantitative, Real-Time PCR (01/21/2024 10:35 AM EDT) Hepatitis C Antibody Nonreactive Nonreactive [facility] Comment:Antibodies to HCV no t detected; does not exclude early acuteHCV infection. Blood Venous blood specimen / Unknown 01/21/2024 10:35 AM EDT 01/21/2024 1:00 PM EDT [facility] LAB BLOOD ORDERABLES Final Re sult Performing Organization Address [facility] de Phone Number [facility] [address] [place] [phone] * HIV-1/2 Antigen and Antibodies, Fourth Generation, with Reflexes (01/21/2024 10:35 AM EDT) Pathologist [facility] HIV AB/AG Nonreactive Nonreactive [facility] Comment:HIV-1 p24 Ag and/or HIV-1/HIV-2 Ab not detected.A test result that is nonreactive does not exclude thepossibility of exposure to or infection with HIV-1 and/orHIV-2. Nonreactive results in this assay for individualswith prior exposure to HIV-1 and/or HIV-2 may be due toantigen and antibody levels that are below the limit ofdetection of this assay.[employer] HIV Ag/Ab Combo assay result andsupplemental assay results should be interpreted inconjunction with the patient's clinical presentation,history and other laboratory results. If the results areinconsistent with clinical evidence, additional testing issuggested to confirm the result. Blood Venous blood specimen / Unknown 01/21/2024 10:35 AM EDT 01/21/2024 1:00 PM EDT [facility] LAB BLOOD ORDERABLES Final Re sult [facility] [address] [place] [phone] from Last 3 Months or Most Recently Relevant [place] [id number] Care Teams Transitional Nurse Relationship Specialty Start Date End Date WetmoreMadie FNP [address] [place] [address] PCP - General Family Medicine 12/30/21
--- OUTSIDE RECORDS SUMMARY | 2025-02-02 14:17 | XMS_ITS | Encounter Summary ---
Author Organization [facility] Address [address] [place] [phone] Phone Care Team Providers Care Web Application Developer Name Role Phone Pcp, Unknown Primary Care Provider Unavailabl e Encounter Details Date Type Department Care Team (Late st Contact Info) Description 06/09/2022 Procedure Pass [facility], Ct Scan - [address] [address] Social History Tobacco Use Types Packs/Day Years [...] 06/09/2022 10:05 PM Landon Dodd RN * [place] Suicide Severity Rating Scale (Screener/Recent Self-Report) Question [...] on filedocumented in this encounter Care Teams Web Application Developer Relationship Specialty Start Date End Date Pcp, Unknown PCP - General 06/09/22 documented as of this encounter Additional Source Comments The information contained in this document represents components of the legal health record. It is not the complete legal health record.[facility]
--- OUTSIDE RECORDS SUMMARY | 2025-02-02 14:17 | XMS_ITS | Encounter Summary ---
Author Organization [employer] Address [address] [place] [address] [address] Care Team Providers Care Pre K Special Education Teacher Name Role Phone Madie Evans Primary Care Provider [phone] Encounter Details Date Type Department Care Team [...] on filedocumented in this encounter Care Teams Pre K Special Education Teacher Relationship Specialty Start Date End Date Madie Evans FNP [address] [place] [phone] PCP - General Family Medicine 12/30/21 documented as of this encounter
--- OUTSIDE RECORDS SUMMARY | 2025-02-02 14:18 | XMS_ITS | Encounter Summary ---
Author Organization [employer] Address [address] [facility] [address] [place] [address] Care Team Providers Care Pasteurizer Name Role Phone Madie Evans POSTING CLERK Primary Care Provider [phone] Encounter Details Date Type Department Care Team [...] documented as of this encounter Care Teams Pasteurizer Relationship Specialty Start Date End Date Madie Evans FNP [address] [place] [phone] PCP - General Family Medicine 12/30/21 documented as of this encounter
== END 2025-02-02 13:35 | disposition home or self-care (01) ==
LOC: HO.HCS 13:00
PROVIDERS: PCP Registered Nurse; Visit Provider Internal Medicine Cardiovascular Disease
DX: R07.9 Chest pain, unspecified (principal)
CPT/HCPCS: 93010; 99214

== ENCOUNTER → 2025-02-02 12:59 | Outpatient (BNVA) | payer OTHER, SELFPAY | PROVIDERS: PCP Registered Nurse; Visit Provider Internal Medicine Cardiovascular Disease | DX: R07.9 Chest pain, unspecified (principal) | CPT/HCPCS: 93005; 99212 ==

== ENCOUNTER → 2025-03-17 10:03 | Outpatient (REF) | payer OTHER, SELFPAY ==
--- NOTE | 2025-03-17 10:05 | CA_ITS ---
Transthoracic Echocardiogram Patient (Last, First, Middle): Denis Baker, Gender: M Date of : 1980 Age: 44 Procedure Date: 03/17/2025 Procedure Type: Transthoracic Echocardiogram Location: OP Height: 167.64 cm Weight: 77.11 kg BSA: 1.87 m2 Heart Rate: bpm BP: 110 / 70 mmHg Cnc Mill Set Up Operator: TO Referring MD: Jovanny Torres MD Fire Department Marine Engineer: Joss Howard MD Symptoms: R07.9 - Chest pain, unspecified Study Quality: Fair/Contrast ECG Rhythm: Sinus Conclusions: - Normal study Findings Procedure Information Contrast agent, definity, is being given per protocol without apparent complications. Left Ventricle Normal left ventricular size, thickness, and systolic function. The visually estimated ejection fraction is between 55-60%. Diastolic function is normal for age. Right Ventricle Normal right ventricular cavity size and systolic function. Atria Both atria are normal in size. There is no evidence of interatrial shunt. Aortic Valve Normal aortic valve structure and function. There is no aortic valve stenosis. There is no aortic valve regurgitation. Mitral Valve Normal mitral valve structure and function. There is trace mitral valve regurgitation. There is no mitral valve stenosis. Pulmonic Valve The pulmonic valve is likely normal. Tricuspid Valve Normal tricuspid valve structure. Tricuspid regurgitation envelope is inadequate for calculation of right ventricular systolic pressure. Normal right atrial pressure. Great Vessels All visible segments of the aorta are normal in size. The pulmonary artery was not well visualized. Venous The inferior vena cava is normal in size and collapses greater than 50% with inspiration. Pericardium/Pleural There is no evidence of pericardial effusion. Prior Study Comparison No prior study available for comparison. Measurements 2D Linear Measurements IVSd: 0.89 0.6-0.9/0.6-1.0 cm LVIDd: 4.90 3.9-5.3/4.2-5.9 cm LVIDd Index: 2.62 2.4-3.2/2.2-3.1 cm/m2 LVIDs: 3.30 2.0-3.6 cm LVPWd: 0.80 0.7-1.1 cm LA Diam: 3.00 2.7-3.8/3.0-4.0 cm LAIDs Index: 1.60 1.5-2.3 cm/m2 LV Mass: 175.96 67-162/88-224 g LV Mass Index: 94.10 43-95/49-115 g/m2 LVOT Diam: 2.20 3.0+(-)1.3 cm Mitral Valve MV Pk E: 0.69 MV PK A: 0.56 MV Decel Time: 202.00 E/A: 1.20 E'Lateral: 10.90 E'Medial: 7.07 E/E' Med: 9.80 E/E' Lat: 6.40 PHT: 59.00 MVA PHT: 3.73 Decel Henderson: 3.44 Aortic Valve AoV Pk Ranjan: 0.98 AoV Mn Ranjan: 0.59 AoV VTI: 0.19 AoV Pk Grad: 4.00 Aov Mn Grad: 2.00 KAT Cont.VTI: 2.92 LVOT LVOT Pk Ranjan: 0.67 LVOT Mn Ranjan: 0.44 LVOT VTI: 0.15 LVOT Pk Grad: 2.00 LVOT Mn Grad: 1.00 LVOT Diam: 2.20 LVOT Area: 3.80 Diastolic Function MV Pk E: 0.69 MV Pk A: 0.56 E/A: 1.20 E'Medial: 7.07 E/E' Med: 9.80 E' Laterial: 10.90 E/E' Lat: 6.40 Right Ventricle TAPSE (mm): 15.10 TVS' Ranjan: 8.92 Tricuspid Valve RA Press: 3.00 Great Vessels Aorta Sinus of Valsalva: 3.29 2.0-3.[address] Ridge: 2.50 1.7-3.4 cm Ao Asc: 2.70 2.1-3.4 cm Updated in Other Vendor System with Status of Final Joss Howard MD electronically signed on 03/18/2025 2:36:41 PM with status of Final
--- OUTSIDE RECORDS SUMMARY | 2025-03-17 12:01 | XMS_ITS | Clinical Summary ---
Author Organization [facility] Address [address] [place] [phone] Phone Care Team Providers Care Job Molder Name Role Phone Pcp, Unknown Primary Care [...] (18-65 YEARS) 1999 INFLUENZA VACCINE (#1) 2024 2, 03/20/2021, 01/27/2020, Additional history exists COVID-19 VACCINE [...] patient's age to complete this topic IPV VACCINES Aged Out No longer eligi ble based on patient's age to complete this topic MENINGOCOCCAL VACCINES (ACWY) Aged Out No longer eligible based on patient's age to complete this topic MENINGOCOCCAL VACCINES (B) Aged Out N o longer eligible based on patient's age to complete this topic Medical Devices Not on file Insurance [facility] C3 ACO C3 ACO C3 [place]CO [place] [place] [address] [place] [id number] C3 ACO Care Teams Job Molder Relationship Specialty Start Date End Date Pcp, Unknown PCP - General 06/09/22 Additional Source Comments The information contained in this document represents components of the legal health record. It is not the complete legal health record.[facility]
--- OUTSIDE RECORDS SUMMARY | 2025-03-17 12:01 | XMS_ITS | Encounter Summary ---
Author Organization [facility] Address [address] [place] [phone] Phone Care Team Providers Care Engine Turner Name Role Phone Pcp, Unknown Primary Care Provider Unavailabl e Encounter Details Date Type Department Care Team (Late st Contact Info) Description 06/09/2022 Procedure Pass [facility], Ct Scan - [address] [address] Social History Tobacco Use Types Packs/Day Years [...] 06/09/2022 10:05 PM Landon Dodd RN * [place]rio Suicide Severity Rating Scale (Screener/Recent Self-Report) Question [...] on filedocumented in this encounter Care Teams Engine Turner Relationship Specialty Start Date End Date Pcp, Unknown PCP - General 06/09/22 documented as of this encounter Additional Source Comments The information contained in this document represents components of the legal health record. It is not the complete legal health record.[facility]
--- OUTSIDE RECORDS SUMMARY | 2025-03-17 12:01 | XMS_ITS | Clinical Summary ---
Author Organization [employer] [employer] Address [address] [place] [address] Care Team Providers Care Manager Software Development Name Role Phone Madie Evans BICYCLE REPAIRMAN Primary Care Provider [phone] Allergies No known active allergies Medications * This document contains information received from the source organization and may not represent a complete record from that organization. sodium chloride ([place]) 0.65 % nasal spray Administer 2 sprays into affected nostril(s) every 6 (six) hours. Active cyclobenzaprine (Flexeril) 5 MG tablet Take 1 tablet by mouth every 8 (eight) hours. 1 Active hydrocortisone 2.5 % cream apply by topical route 2 times every day a thin layer to the affected area(s) for 2 weeks then go to [facility] 2 Active Salicylic Acid 40 % pads Apply 1 patch topically every other day. 36 each 3 Active folic acid (Folvite) 1 MG tabletIndications :Alcohol dependence, uncomplicated (CMS/HCC) ([facility]) Take 1 tablet (1,000 mcg) by mouth in the morning. 90 tablet 1 4 Active pantoprazole (Protonix) 40 MG EC tabletIndications :Epigastric pain Take 1 tablet (40 mg) by mouth 2 times daily. Do not crush, chew, or split. 60 tablet 1 5 026 Active ARIPiprazole (Abilify) 10 MG tabletIndications :Bipolar 1 disorder (CMS/HCC) (HCC) Take 1 tablet (10 mg) by mouth Once per day. 30 tablet 1 5 Active sertraline (Zoloft) 50 MG tabletIndications :Depressive disorder Take 1 tablet (50 mg) by mouth in the morning. as directed 30 tablet 1 5 Active benzoyl peroxide (PanOxyl Foaming Wash) 10 % external washIndications:F olliculitis Apply topically 2 times daily. 227 g 5 026 Active traZODone (Desyrel) 100 MG tabletIndications :Depressive disorder TAKE 1 TABLET BY MOUTH AT BEDTIME NEEDED FOR SLEEP 30 tablet 5 Active azithromycin (Zithromax) 250 MG tablet Take 2 tabs PO daily x 1d then 1 tab PO daily on D2 to D5 6 tablet 5 Active albuterol (Ventolin HFA) 108 (90 Base) MCG/ACT inhalerIndication s:Shortness of breath Inhale 2 puffs every 6 (six) hours if needed for wheezing. 18 g 5 Active acetaminophen (Tylenol Extra Strength) 500 MG tablet Take 1 tablet (500 mg) by mouth every 6 (six) hours if needed for mild pain. 120 tablet 5 025 Active Problems Problem Noted Date Diagnosed Date [...] Description 01/29/2025 10:20 AM EDT Office Visit [facility] [place] [address] Tiff Roberts MD Bronchitis (Primary Dx); Nasal congestion; Cough in adult; Shortness of breath 01/29/2025 Travel 12/17/2024 Orders Only [facility] External Provider, [facility] from Last 3 Months Immunizations Immunization Administration [...] your housing situation today? I have malini maria l 01/19/[address] you li [...] BARIUM SWALLOW Routine 12/17/2024 8:00 AM EDT LIPID PANEL, STANDARD Routine 01/21/2024 [...] AM EDT Narrative 01/31/2025 11:19 AM EDT [address] [address] XRay Report Signed Patient: Denis Baker MR#: [id number] : 1980 Acct:[id number] Age/Sex: 44 / M ADM Date: 01/31/25 [facility]: Tiff Roberts MD Ordering Physician: Tiff Roberts MD Date of Service: 01/31/25 Procedure(s): XR chest 2V Accession Number(s): [id number] cc: Tiff Roberts MD Reason for Exam: [...] Du Garcia MD 01/31/2025 11:16 AM EDT Dictated By: Du Garcia MD Signed By: <Electronically signed by Du Garcia MD in OV> 01/31/25 1116 DD/ 1106 TD/TT: 01/31/25 1108 Car Mechanic Helper: Procedure Note Donotuseinterpreter, Image - 01/31/2025 [address] [place] [address] XRay Report Signed Patient: Denis BakerMR#: [id number] : 1980Acct:[id number] Age/Sex: 44 / MADM Date: 01/31/25 Loc: HO.[facility] Attending Dr: Tiff Roberts MD Ordering Physician: Tiff Roberts MD Date of Service: 01/31/25 Procedure(s): XR chest 2V Accession Number(s): [id number] cc: Tiff Roberts MD Reason for Exam: [...] Du Garcia MD 01/31/2025 11:16 AM EDT Dictated By: Du Garcia MD Signed By: <Electronically signed by Du Garcia MD in OV> 01/31/25 1116 DD/ 1106 TD/TT: 01/31/25 1108 Car Mechanic Helper: us Tiff Roberts MD IMG XR PROCEDURES Final Result * POCT Rapid Influenza A MARTINEZ ID NOW (01/29/2025 10:46 AM EDT) Influenza A Negative Negative, Indeterminate [facility] QC Media Lot # [id number] [facility] Lot# Expiration Date [id number] [facility] Swab 01/29/2025 10:4 6 AM EDT us Tiff Roberts MD POINT OF CARE TEST ENTER /EDIT ORDERABLES Final Result [facility] [address] [place] [phone] * POCT Rapid Covid-19 MARTINEZ ID NOW (01/29/2025 10:46 AM EDT) Coronavirus Antigen PCR Negative Negative, Indeterminate, None Detected, Invalid, Specimen unsatisfactory for evaluation, Weakly Positive, 2+ QC Media Lot # [id number] Lot# Expiration Date ,026 Swab 01/29/2025 10:4 6 AM EDT Tiff Roberts MD POINT OF CARE TEST ENTER /EDIT ORDERABLES Final Result * POCT Rapid Influenza B MARTINEZ ID NOW (01/29/2025 10:45 AM EDT) Influenza B Negative Negative, Indeterminate [facility] QC Media Lot # [id number] [facility] Lot# Expiration Date , [facility] Swab 01/29/2025 10:4 5 AM EDT Tiff Roberts MD POINT OF CARE TEST ENTER /EDIT ORDERABLES Final Result Performing Organization Address City/State/[facility] Co de Phone Number [facility] [address] [place] [phone] * US Abdomen Comp w elastography (12/30/2024 9:06 AM EDT) Anatomical Region Laterality Modality Abdomen Ultrasound 12/30/2024 9:06 AM EDT Narrative 12/30/2024 9:34 AM EDT [address] [address] Ultrasound Report Signed Patient: Denis Baker MR#: [id number] : 1980 Acct:[id number] Age/Sex: 44 / M ADM Date: 12/30/24 Loc: HO.US Attending Dr: Jeanette MAYER Ordering Physician: Jeanette Mc Date of Service: 12/30/24 Procedure(s): US abdomen comp w elastography Accession Number(s): [id number] cc: Jeanette Mc [facility]-; Madie Evans [facility] EXAMINATION: US COMPLETE ABDOMEN WITH LIVER ELASTOGRAPHY [...] in OV> 12/30/2431 DD/ 5 TD/TT: 12/30/24917 Car Mechanic Helper: Procedure Note Donotuseinterpreter, Image - 12/30/[address] [address] Ultrasound Report Signed Patient: Denis BakerMR#: [id number] : 1980Acct:[id number] Age/Sex: 44 / MADM Date: 12/30/24 Loc: HO.US Attending Dr: Jeanette Mc BICYCLE REPAIRMAN- Ordering Physician: Jenaette Mc Date of Service: 12/30/24 Procedure(s): US abdomen comp w elastography Accession Number(s): [id number] cc: Jeanette Mc [facility]; [facility] EXAMINATION: US COMPLETE ABDOMEN WITH LIVER ELASTOGRAPHY [...] in OV> 12/30/24930 DD/ 5 TD/TT: 12/30/24917 Car Mechanic Helper: us [facility] External Provider IMG US PROCEDURES Final Result * FL Upper GI w/air w/Barium Swallow (12/17/2024 8:00 AM EDT) Anatomical Region Laterality Modality Body Radiographic Anika ging 12/17/2024 8:00 AM EDT Narrative 12/17/2024 9:47 AM EDT [address] [address] Fluoroscopy Report Signed Patient: Denis Baker MR#: [id number] : 1980 Acct:[id number] Age/Sex: 44 / M ADM Date: 12/17/24 Loc: HO.XRAY Attending Dr: Jeanette Mc BICYCLE REPAIRMAN-BC Ordering Physician: Jeanette Mc BICYCLE REPAIRMAN-CUATE Date of Service: 12/17/24 Procedure(s): FL upper GI w air w Ba Swallow Accession Number(s): [id number] cc: Jeanette Mc BICYCLE REPAIRMAN-; [facility] EXAMINATION: XR UPPER GI [...] Kodi Tobin MD in OV> 12/17/2444 DD/ 0800 TD/TT: 12/17/24 0815 Car Mechanic Helper: [facility] Procedure Note Donotuseinterpreter, Image - 12/17/[address] [address] Fluoroscopy Report Signed Patient: Yg Baker#: [id number] : 1980Acct:[id number] Age/Sex: 44 / MADM Date: 12/17/24 Loc: HO.XRAY Attending Dr: Jeanette OSORIO-CUATE Ordering Physician: Jeanette Mc Date of Service: 12/17/24 Procedure(s): FL upper GI w air w Ba Swallow Accession Number(s): [id number] cc: Jeanette Mc; [facility] EXAMINATION: XR UPPER GI [...] in OV> 12/17/24943 DD/ 9 TD/TT: 12/17/24814 Car Mechanic Helper: [facility]NA[facility] External Provider IMG FLU OROSCOPY PROCEDURES Final Result * (ABNORMAL) Lipid Panel, Standard (01/21/2024 10:38 AM EDT) Triglycerides 160(H) <150 mg/dL [facility] Comment:Desirable Triglyceri de: less than 150 mg/dLBorderline High Triglyceride 150-199 mg/dLHigh Triglyceride: 200-499 mg/dLVery High Triglyceride: greater than or equal to 5OO mg/dL Cholesterol 172 <200 mg/dL [facility] Comment:Desirable Cholestero l: less than 200 mg/dLBorderline High Cholesterol: 200-239 mg/dLHigh Cholesterol: greater than 239 mg/dL LDL Cholesterol Calculated 89 <100 mg/dL [facility] Comment:Desirable LDL: less than 100 mg/dLNear Optimal/Above Optimal LDL: 110- 129 mg/dLBorderline High LDL: 130-159 mg/dLHigh LDL: 160-189 mg/dLVery High LDL: greater than or equal to 190 mg/dL HDL Cholesterol 51 >40 mg/dL [facility] Comment:Desirable HDL: great er than 40 mg/dL Note: This HDL assay may give artificially low results in patients with liver disease. Blood Venous blood specimen / Unknown 01/21/2024 10:38 AM EDT 01/21/2024 1:00 PM EDT [facility] BLOOD ORDERABLES Final Re sult Performing Organization Address [facility] [address]/ZIP Co de Phone Number [facility] [address] [place] [phone] * Hepatitis C Antibody with Reflex to HCV, RNA, Quantitative, Real-Time PCR (01/21/2024 10:35 AM EDT) Hepatitis C Antibody Nonreactive Nonreactive [facility] Comment:Antibodies to HCV no t detected; does not exclude early acuteHCV infection. Blood Venous blood specimen / Unknown 01/21/2024 10:35 AM EDT 01/21/2024 1:00 PM EDT [facility] BLOOD ORDERABLES Final Re sult Performing Organization Address [facility] Co de Phone Number [facility] [address] [place] [phone] * HIV-1/2 Antigen and Antibodies, Fourth Generation, with Reflexes (01/21/2024 10:35 AM EDT) HIV AB/AG Nonreactive Nonreactive [facility] Comment:HIV-1 p24 Ag and/or HIV-1/HIV-2 Ab not detected.A test result that is nonreactive does not exclude thepossibility of exposure to or infection with HIV-1 and/orHIV-2. Nonreactive results in this assay for individualswith prior exposure to HIV-1 and/or HIV-2 may be due toantigen and antibody levels that are below the limit ofdetection of this assay.[employer] HIV Ag/Ab Combo assay result andsupplemental assay results should be interpreted inconjunction with the patient's clinical presentation,history and other laboratory results. If the results areinconsistent with clinical evidence, additional testing issuggested to confirm the result. Blood Venous blood specimen / Unknown 01/21/2024 10:35 AM EDT 01/21/2024 1:00 PM EDT [facility] BLOOD ORDERABLES Final Re sult [facility] [address] [place] [phone] from Last 3 Months or Most Recently Relevant to Health Maintenance Insurance [facility] Care Teams Manager Software Development Relationship Specialty Start Date End Date Th[facility]ellsMadie [facility] [address] [place] [phone] PCP - General Family Medicine 12/30/21
--- OUTSIDE RECORDS SUMMARY | 2025-03-17 12:01 | XMS_ITS | Encounter Summary ---
Author Organization [employer] Address [address] [place] [address] [address] Care Team Providers Care Plisse Machine Operator Name Role Phone Madie Evans Primary Care Provider [phone] Encounter Details Date Type Department Care Team [...] on filedocumented in this encounter Care Teams Plisse Machine Operator Relationship Specialty Start Date End Date Madie Evans FNP [address] [place] [phone] PCP - General Family Medicine 12/30/21 documented as of this encounter
== END ==
LOC: HO.CARD 10:03
PROVIDERS: Visit Provider Internal Medicine Cardiovascular Disease
DX: R07.9 Chest pain, unspecified (principal)
CPT/HCPCS: 93306; Q9957

== ENCOUNTER → 2025-03-17 10:05 | Outpatient (BNV) | payer OTHER, SELFPAY | PROVIDERS: Visit Provider Internal Medicine Cardiovascular Disease | DX: R07.9 Chest pain, unspecified (principal) | CPT/HCPCS: 93306 ==